=== PATIENT | male | born 1955 | race Caucasian/White ===

== ENCOUNTER → 2016-09-21 | Outpatient (CLI) | payer BC ==
--- NOTE | 2016-09-22 07:36 | XR ---
EXAMINATION TYPE: XR chest 2V DATE OF EXAM: 09/21/2016 1:46 PM COMPARISON: NONE HISTORY: Shortness of breath TECHNIQUE: Frontal and lateral views of the chest are obtained. FINDINGS: Scattered senescent parenchymal changes noted. Hyperinflation compatible with COPD. No evidence for infiltrate. No evidence for atelectasis. Heart size is stable. Mediastinal structures are stable and grossly unremarkable. No evidence for hilar prominence. Degenerative changes dorsal spine. IMPRESSION: 1. No evidence for acute pulmonary disease.
== END | disposition home or self-care (01) ==
LOC: RADXRYALE 13:15
PROVIDERS: ATTEND Family Medicine
DX: J18.9 Pneumonia, unspecified organism (principal)
CPT/HCPCS: 71020

== ENCOUNTER 2017-11-07 05:53 | Day surgery (SDC) | payer BC ==
[2017-11-02 13:44] VITALS: BMI 29.6
[2017-11-07] MEDS ORDERED: SODIUM CHLORIDE 0.9% 1,000 ML IV SCH (05:56)
[2017-11-07] MEDS ORDERED: LACTATED RINGERS 1,000 ML IV SCH (05:56)
[2017-11-07 06:23] VITALS: TEMP 98.2
[2017-11-07 06:34] LABS: Glucose,Whole Blood 134 mg/dL (75-99)
[2017-11-07 06:43] LABS: INR 3.1 (<1.2); Prothrombin Time 28.1 sec (9.0-12.0)
[2017-11-07] MEDS ORDERED: PROPOFOL 10 MG/ML 20 ML VIAL IV ONE (07:10)
[2017-11-07 07:21] LABS: Potassium 4.2 mmol/L (3.5-5.1)
--- NOTE | 2017-11-07 07:58 | P.PCN ---
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 First 360 J shock failed, second 360 J shock was successful Plan Continue flecainide 100 mg twice daily, continue carvedilol continue anticoagulation continue all other medications without changes Follow-up Holter monitor in 2 weeks Follow-up with Dr. weir in 3 weeks Reassessment of symptoms of tiredness fatigue and lack of energy as well as patient remains in sinus rhythm Reassessment of LV function in 6 weeks In case of failure of flecainide consider ablation for symptomatic atrial fibrillation
[2017-11-07 08:26] VITALS: BP 123/82
[2017-11-07 08:49] VITALS: PULSE 77; RESP 18
== END 2017-11-07 09:30 | disposition home or self-care (01) ==
LOC: CATHEP 05:53
PROVIDERS: ATTEND Internal Medicine Clinical Cardiac Electrophysiology
DX: I48.1 Persistent atrial fibrillation (principal); Z79.01 Long term (current) use of anticoagulants; I42.9 Cardiomyopathy, unspecified; F17.210 Nicotine dependence, cigarettes, uncomplicated; E78.2 Mixed hyperlipidemia; E11.9 Type 2 diabetes mellitus without complications; Z79.84 Long term (current) use of oral hypoglycemic drugs; Z82.49 Family history of ischemic heart disease and other diseases of the circulatory system; Z79.899 Other long term (current) drug therapy
CPT/HCPCS: 92960; 80051; 80061; 84443; 85610; J2704; 93005

== ENCOUNTER 2018-11-02 13:16 | Observation (INO) | payer BC, OTHER ==
[2018-11-02] MEDS ORDERED: NITROGLYCERIN OINT 1 INCH/GM PACKET TOPICAL STA (14:24)
[2018-11-02] MEDS ORDERED: ASPIRIN 81 MG PO STA (14:24)
[2018-11-02 14:36] LABS: Basophils % (A) 1 %; Eosinophils # (A) 0.3 k/uL (0-0.7); Eosinophils % (A) 5 %; HCT 43.3 % (39.0-53.0); HGB 15.3 gm/dL (13.0-17.5); Lymphocytes # (A) 1.8 k/uL (1.0-4.8); Lymphocytes % (A) 27 %; MCH 32.5 pg (25.0-35.0); MCHC 35.4 g/dL (31.0-37.0); Mean Platelet Volume 7.2; Monocytes # (A) 0.6 k/uL (0-1.0); Monocytes % (A) 9 %; Neutrophils # (A) 3.7 k/uL (1.3-7.7); Neutrophils % (A) 56 %; Platelet Count 146 k/uL (150-450); RBC 4.71 m/uL (4.30-5.90); RDW 13.7 % (11.5-15.5); WBC 6.7 k/uL (3.8-10.6)
[2018-11-02 14:42] LABS: ALT 50 U/L (21-72); AST 39 U/L (17-59); Albumin 4.1 g/dL (3.5-5.0); Alkaline Phosphatase 57 U/L (38-126); Anion Gap 9 mmol/L; Blood Urea Nitrogen 11 mg/dL (9-20); Carbon Dioxide 24 mmol/L (22-30); Chloride 103 mmol/L (98-107); Glucose 133 mg/dL (74-99); Magnesium 1.7 mg/dL (1.6-2.3); Potassium 4.6 mmol/L (3.5-5.1); Sodium 136 mmol/L (137-145); Total Bilirubin 0.7 mg/dL (0.2-1.3)
[2018-11-02 14:49] LABS: INR 3.1 (<1.2); Partial Thromboplastin Time 37.7 sec (22.0-30.0); Prothrombin Time 29.7 sec (9.0-12.0)
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
[2018-11-02 14:55] LABS: Creatine Kinase 78 U/L (55-170)
[2018-11-02 15:08] LABS: Creatine Kinase MB 1.1 ng/mL (0.0-2.4); Troponin I <0.012 ng/mL (0.000-0.034)
--- NOTE | 2018-11-02 15:39 | XR ---
EXAMINATION TYPE: XR chest 2V DATE OF EXAM: 11/02/2018 COMPARISON: 09/21/2016 HISTORY: Congestive heart failure, chest pain, shortness of breath, enlarged from the swelling TECHNIQUE: Frontal and lateral views of the chest are obtained. FINDINGS: There is no focal air space opacity, pleural effusion, or pneumothorax seen. Pulmonary hy perinflation again relates underlying COPD as there is flattening the diaphragms on the lateral views . Minimal biapical scarring is also noted. The cardiac silhouette size is within normal limits. The osseous structures are intact. IMPRESSION: No acute cardiopulmonary process.
[2018-11-02] MEDS ORDERED: NITROGLYCERIN SL TABS 0.4 MG TAB SUBLINGUAL PRN (16:24)
[2018-11-02 17:26] VITALS: BMI 30.2
[2018-11-02] MEDS ORDERED: IPRATROPIUM-ALBUTEROL 3 ML NEB INHALATION PRN (17:41)
[2018-11-02] MEDS ORDERED: ALBUTEROL INHALER 60 PUFF/8 GM INHALER INHALATION PRN (17:41)
[2018-11-02] MEDS: NITROGLYCERIN OINT 1 INCH/GM PACKET TOPICAL SCH ×2 (18:25→23:52)
[2018-11-02] MEDS: CARVEDILOL 12.5 MG TAB PO SCH (18:25)
--- NOTE | 2018-11-02 19:04 | ECHOF ---
Referral Reason:Chest pain MEASUREMENTS -------- HEIGHT: 195.6 cm WEIGHT: 115.7 kg BP: 163/93 RVIDd: 3.6 cm (< 3.3) IVSd: 1.4 cm (0.6 - 1.1) LVIDd: 5.6 cm (3.9 - 5.3) LVPWd: 1.4 cm (0.6 - 1.1) IVSs: 1.7 cm LVIDs: 4.4 cm LVPWs: 1.6 cm LAESV Index (A-L): 30.08 ml/m Ao Diam: 3.2 cm (2.0 - 3.7) AV Cusp: 1.4 cm (1.5 - 2.6) LA Diam: 3.6 cm (2.7 - 3.8) EPSS: 1.6 cm MV E Hiram: 0.61 m/s MV DecT: 250 ms MV A Hiram: 0.36 m/s MV E/A Ratio: 1.69 RAP: 5.00 mmHg RVSP: 10.97 mmHg MV EF SLOPE: 119.93 mm/s (70 - 150) MV EXCURSION: 1.92 cm (> 18.000) FINDINGS -------- Atrial fibrillation. This was a technically adequate study. The left ventricular size is normal. There is moderate concentric left ventricular hypertrophy. O verall left ventricular systolic function is mildly impaired with, an EF between 45 - 50 %. The right ventricle is moderately enlarged. LA is midly dilated 29-33ml/m2. RA appears enlarged. There is mild aortic valve sclerosis. There is no evidence of aortic regurgitation. There is no e vidence of aortic stenosis. The mitral valve leaflets are mildly thickened. There is trace to mild mitral regurgitation. Trace tricuspid regurgitation present. Right ventricular systolic pressure is normal at < 35 mmHg. There is no evidence of pulmonary hypertension. The pulmonic valve was not well visualized. The aortic root size is normal. IVC Not well visulized. There is no pericardial effusion. CONCLUSIONS -------- 1. Atrial fibrillation. 2. This was a technically adequate study. 3. The left ventricular size is normal. 4. There is moderate concentric left ventricular hypertrophy. 5. The right ventricle is moderately enlarged. 6. LA is midly dilated 29-33ml/m2. 7. RA appears enlarged. 8. There is mild aortic valve sclerosis. 9. The mitral valve leaflets are mildly thickened. 10. There is trace to mild mitral regurgitation. 11. Trace tricuspid regurgitation present. 12. Right ventricular systolic pressure is normal at < 35 mmHg. 13. There is no evidence of pulmonary hypertension. 14. The pulmonic valve was not well visualized. 15. The aortic root size is normal. 16. IVC Not well visulized. 17. There is no pericardial effusion. CIRCULAR [employer]ER [employer]ONE: Bacilio Carranza RDCS
[2018-11-02 20:03] LABS: Glucose,Whole Blood 223 mg/dL (75-99)
[2018-11-02] MEDS: INSULIN ASPART (NovoLOG) 100 UNIT/ML VIAL SQ SCH (20:29)
[2018-11-02] MEDS: HEPARIN SODIUM,PORCINE 5,000 UNIT/ML 1 ML VIAL SQ SCH (20:29)
[2018-11-02 20:58] LABS: Creatine Kinase 69 U/L (55-170)
[2018-11-02 21:11] LABS: Creatine Kinase MB 0.8 ng/mL (0.0-2.4)
[2018-11-02] MEDS ORDERED: ALPRAZolam 0.25 MG TAB PO PRN (21:14)
[2018-11-02] MEDS ORDERED: HYDROcodone/APAP 5-325MG 1 EACH TAB PO PRN (21:14)
[2018-11-02] MEDS ORDERED: TEMAZEPAM 15 MG CAP PO PRN (21:14)
[2018-11-02] MEDS ORDERED: ACETAMINOPHEN TAB 500 MG TAB PO PRN (21:14)
[2018-11-02 21:34] LABS: Troponin I <0.012 ng/mL (0.000-0.034)
--- NOTE | 2018-11-02 21:54 | HP ---
HISTORY AND PHYSICAL DATE OF SERVICE: 11/02/2018 CHIEF COMPLAINT: Chest pain, shortness of breath, leg edema. HISTORY OF PRESENT ILLNESS: This 62-year-old gentleman with a past medical history of multiple medical problems, including COPD, history of diabetes mellitus, history of liver disease, history of closed head injury, being followed by Dr. Parker and Dr. Guzman in the outpatient setting, was complaining of intermittent chest pains on the left side for the past several days. The pain increased, most of it dull and sharp in character, and the patient came to [facility] and was admitted for evaluation and treatment. Patient smokes about a pack of cigarettes per day. The patient also complains of incessant cough at this time. Patient is using albuterol inhaler at home. There is no history of any fever, rigor or chills. No history of headache, loss of consciousness, seizures. PAST MEDICAL HISTORY: 1. History of COPD. 2. Diabetes mellitus. 3. History of liver disease. 4. History of closed head injury. MEDICATIONS: Medications prior to admission include: 1. DuoNeb q.i.d. p.r.n. 2. Ventolin HFA 1 puff q.6 p.r.n. 3. Glucophage 1000 mg b.i.d. 4. Coumadin 6 mg at bedtime. 5. Coreg 12.5 mg b.i.d. ALLERGIES: NONE. FAMILY HISTORY: History of cancers, heart disease in brother, who at the age of 46. SOCIAL HISTORY: Continued smoking. No history of alcohol intake. REVIEW OF SYSTEMS: ENT: No diminished hearing. No diminished vision. CARDIOVASCULAR SYSTEM: As mentioned earlier. RESPIRATORY SYSTEM: As mentioned earlier. GI: No nausea, vomiting. : No dysuria or retention. NERVOUS SYSTEM: No numbness, weakness. ALLERGY/IMMUNOLOGY: No asthma, hayfever. MUSCULOSKELETAL: As mentioned earlier. HEMATOLOGY/ONCOLOGY: No history of anemia. ENDOCRINE: No history of diabetes, hypothyroidism. CONSTITUTIONAL: As mentioned earlier. DERMATOLOGY: Negative. RHEUMATOLOGY: Negative. PSYCHIATRY: As mentioned earlier. PHYSICAL EXAMINATION: Alert and oriented x3. Pulse is 64, blood pressure 148/81, respiration 18, temperature 97.5, pulse ox 98% on 2 L. HEENT: Conjunctivae normal. Oral mucosa moist. NECK: No jugular venous distention. No carotid bruit. No lymph node enlargement. CARDIOVASCULAR SYSTEM: S1, S2 muffled. No S3. No S4. Occasional irregularity noted. RESPIRATORY SYSTEM: Breath sounds diminished at the bases. Bilateral scattered rhonchi and crackles. Expiratory wheezing also present. ABDOMEN: Soft, non-tender. No mass palpable. LEGS: No edema. No swelling. NERVOUS SYSTEM: Higher functions as mentioned earlier. Moves all 4 limbs. No focal motor or sensory deficit. LYMPHATICS: No lymph node palpable in neck, axillae or groin. SKIN: No ulcer, rash, bleeding. LABS: EKG shows atrial fibrillation. Two-D echo showed minimally impaired ejection fraction. WBC 6.7, hemoglobin 15.3, INR 3.1. Sodium is 136. ASSESSMENT: 1. Chest pain, possible unstable angina. 2. Possible chronic obstructive pulmonary disease, acute exacerbation, with acute purulent tracheobronchitis. 3. Possible congestive heart failure with chronic systolic dysfunction, ejection fraction 40% to 45%. 4. Chronic permanent atrial fibrillation. 5. Hyponatremia. 6. Thrombocytopenia. 7. History of diabetes mellitus, type 2. 8. History of liver disease. 9. History of closed head injury. 10.History of colon polyps. 11.Hernia repair. 12.Continued ongoing nicotine dependence. RECOMMENDATIONS AND DISCUSSION: In this 62-year-old gentleman who presented with multiple complex medical issues, we will monitor the patient closely, continue the current medications, continue symptomatic treatment, continue with the bronchodilators. Continue with the home medications. I would also recommend monitoring PT and INR closely. Cardiology consultation. Two-D echo has been noted. Prognosis guarded because of multiple complex medical issues. Further recommendations to follow. A copy of this dictation is being forwarded to Dr. Parker, who is the primary physician. MMODL / IJN: [id number] /
[2018-11-02] MEDS: NICOTINE 14MG/24HR PATCH TRANSDERM SCH (22:13)
[2018-11-03 00:41] VITALS: RESP 18
[2018-11-03] MEDS: NITROGLYCERIN OINT 1 INCH/GM PACKET TOPICAL SCH ×2 (01:04→12:02)
[2018-11-03 02:40] LABS: Creatine Kinase 66 U/L (55-170)
[2018-11-03 02:53] LABS: Troponin I <0.012 ng/mL (0.000-0.034)
[2018-11-03 03:05] LABS: Creatine Kinase MB 0.8 ng/mL (0.0-2.4)
[2018-11-03 05:14] LABS: Appearance,Urine Clear (Clear); Bilirubin,Urine Negative (Negative); Blood,Urine Negative (Negative); Color,Urine Yellow; Glucose,Urine (UA) Negative (Negative); Ketones,Urine Negative (Negative); Leukocyte Esterase,Urine Negative (Negative); Nitrite,Urine Negative (Negative); Protein,Urine Negative (Negative); Specific Gravity,Urine 1.019 (1.001-1.035); Urobilinogen,Urine <2.0 mg/dL (<2.0)
[2018-11-03] MEDS: IPRATROPIUM-ALBUTEROL 3 ML NEB INHALATION SCH ×2 (06:10→11:25)
[2018-11-03 07:05] LABS: Glucose,Whole Blood 117 mg/dL (75-99)
[2018-11-03 07:23] LABS: Basophils % (A) 1 %; Eosinophils # (A) 0.3 k/uL (0-0.7); Eosinophils % (A) 4 %; HCT 46.4 % (39.0-53.0); HGB 15.2 gm/dL (13.0-17.5); Lymphocytes # (A) 1.6 k/uL (1.0-4.8); Lymphocytes % (A) 26 %; MCH 31.4 pg (25.0-35.0); MCHC 32.7 g/dL (31.0-37.0); MCV 96.1 fL (80.0-100.0); Mean Platelet Volume 6.4; Monocytes # (A) 0.5 k/uL (0-1.0); Monocytes % (A) 8 %; Neutrophils # (A) 3.4 k/uL (1.3-7.7); Neutrophils % (A) 57 %; Platelet Count 139 k/uL (150-450); RBC 4.83 m/uL (4.30-5.90); RDW 13.9 % (11.5-15.5); WBC 5.9 k/uL (3.8-10.6)
[2018-11-03] MEDS ORDERED: PANTOPRAZOLE 40 MG TABLET PO SCH (07:30)
[2018-11-03 07:39] LABS: INR 2.7 (<1.2); Prothrombin Time 26.2 sec (9.0-12.0)
[2018-11-03 07:40] LABS: Anion Gap 6 mmol/L; Blood Urea Nitrogen 13 mg/dL (9-20); Calcium 8.5 mg/dL (8.4-10.2); Carbon Dioxide 25 mmol/L (22-30); Chloride 105 mmol/L (98-107); Cholesterol 179 mg/dL (<200); Glucose 120 mg/dL (74-99); HDL Cholesterol 31 mg/dL (40-60); LDL Cholesterol,Calculated 79 mg/dL (0-99); Potassium 4.8 mmol/L (3.5-5.1); Sodium 136 mmol/L (137-145); Triglycerides 345 mg/dL (<150)
[2018-11-03] MEDS ORDERED: BUDESONIDE 1 MG/2 ML NEBU INHALATION SCH (08:00)
[2018-11-03] MEDS ORDERED: FORMOTEROL FUMARATE 20 MCG/2 ML NEBU INHALATION SCH (08:00)
[2018-11-03] MEDS ORDERED: ASPIRIN 325 MG TAB PO SCH (09:00)
[2018-11-03] MEDS ORDERED: metFORMIN 500 MG TAB PO SCH (09:00)
[2018-11-03] MEDS: INSULIN ASPART (NovoLOG) 100 UNIT/ML VIAL SQ SCH ×2 (10:32→12:02)
[2018-11-03] MEDS: CARVEDILOL 12.5 MG TAB PO SCH (10:54)
[2018-11-03] MEDS: NICOTINE 14MG/24HR PATCH TRANSDERM SCH (10:54)
[2018-11-03] MEDS: HEPARIN SODIUM,PORCINE 5,000 UNIT/ML 1 ML VIAL SQ SCH (10:55)
--- NOTE | 2018-11-03 11:16 | CONS ---
CONSULTATION Mr. Rubio is a 62-year-old gentleman who is seen for cardiac evaluation. This patient has a known history of diabetes, history of liver disease and COPD and history of closed head injury. The patient is regularly followed by Dr. Parker and Dr. Guzman. The patient has been feeling tired and has been having shortness of breath. He also recently had some swelling in the legs. The patient had some atypical sharp pain on and off lasting for a few minutes. Patient denies any exertional chest discomfort. There is no prior history of myocardial infarction. I am not sure why this patient is on Coumadin. There is no definite history of a stroke. PAST MEDICAL HISTORY: Includes COPD, diabetes, history of liver disease and history of closed head injury. HOME MEDICATIONS: Home medications include Glucophage. Coumadin, Coreg and DuoNeb p.r.n. Family history unremarkable. REVIEW OF THE SYSTEM: Negative. PHYSICAL EXAMINATION: At present reveals a 62-year-old gentleman who does not appear to be in any acute distress. Blood pressure is 140/81 mmHg. HEENT examination is negative. Neck is supple. There is no increase in jugular venous pressure. Both the carotid pulses are felt. There is no bruit. Chest is symmetrical. Heart: The PMI is not felt. First and second heart sounds are normal. No murmurs are heard. Lungs reveal bilateral scattered wheezes. Abdomen is negative. Extremities: There is no evidence of any leg edema. The patient's cardiac enzymes are negative. The patient's echocardiogram reveals ejection fraction of 45 to 50% The laboratory tests shows hemoglobin is 15.2. INR is 2.7. Electrolytes are normal. Cardiac enzymes are negative. Patient's proBNP level is 302. IMPRESSION: This patient's shortness of breath is secondary to underlying chronic obstructive pulmonary disease. The patient's left ventricular systolic function is normal. Her proBNP level is normal and there is no evidence of any significant left ventricular heart failure. I will continue the current medications. The patient should be evaluated with a screening CT scan of the chest as an outpatient and the patient is advised to make an appointment with Dr. Guzman. MMJONOL / CHUYN: [id number] /
[2018-11-03 11:45] LABS: Glucose,Whole Blood 170 mg/dL (75-99)
[2018-11-03 12:22] VITALS: BP 139/94; PULSE 87; TEMP 98.2
--- NOTE | 2018-11-04 08:23 | DS ---
DISCHARGE SUMMARY FINAL DIAGNOSES: 1. Chest pain, myocardial infarction ruled out, possible musculoskeletal. 2. Chronic obstructive pulmonary disease acute exacerbation with acute purulent tracheobronchitis. 3. Possible congestive heart failure acute exacerbation with chronic systolic dysfunction ejection fraction 40-45 percent. 4. Chronic permanent atrial fibrillation. 5. Hyponatremia. 6. Thrombocytopenia. 7. Diabetes mellitus type 2. 8. History of liver disease. 9. Closed head injury. 10.History of colonic polyps. 11.Hernia repair. 12.Ongoing nicotine dependence. DISCHARGE DISPOSITION: The patient will be discharged in stable condition with guarded prognosis. HISTORY OF PRESENT ILLNESS: This 62-year-old gentleman with a past medical history of multiple medical problems was admitted with chest pain and COPD. 2D echo showed ejection fraction 45-50 percent. Cardiology saw the patient. Cardiology cleared the patient for discharge. The patient will be discharged in stable condition with guarded prognosis. Further plan to follow up in the outpatient setting. Myocardial infarction ruled out. On exam, vital signs are stable. Cardiovascular S1, S2. Abdomen soft. Nervous system: No focal deficits. DISCHARGE ADVICE AND MEDICATIONS: 1. Diet is cardiac. 2. Activity limited until follow up. 3. Follow up with Dr. Parker in 2-3 days. 4. Follow up with Cardiology as recommended. MEDICATIONS: 1. Albuterol 1-2 puffs q.6h p.r.n. 2. Coreg 12.5 mg p.o. b.i.d. 3. Glucophage 1000 mg b.i.d. 4. Coumadin 6 mg q.h.s. 5. Symbicort 160/4.5, 1 puff b.i.d. 6. Ceftin 500 mg p.o. b.i.d. 7. DuoNeb q.i.d. 8. Prednisone taper 40 mg daily for 3 days, 30 for 3 days, 20 for 3 days and 10 for 3 days. Once again, the patient will be discharged in stable condition with guarded prognosis. MMODL / IJN: [id number] /
== END 2018-11-03 14:27 | disposition home or self-care (01) ==
LOC: EC 13:16 → 1SOBS 16:57
PROVIDERS: ADMIT Internal Medicine; ATTEND Internal Medicine
DX: R07.9 Chest pain, unspecified (principal); J44.0 Chronic obstructive pulmonary disease with (acute) lower respiratory infection; J44.1 Chronic obstructive pulmonary disease with (acute) exacerbation; J20.9 Acute bronchitis, unspecified; I48.2 Chronic atrial fibrillation; E87.1 Hypo-osmolality and hyponatremia; D69.6 Thrombocytopenia, unspecified; E11.9 Type 2 diabetes mellitus without complications; Z86.010 Personal history of colon polyps; K76.9 Liver disease, unspecified; F17.210 Nicotine dependence, cigarettes, uncomplicated; Z87.828 Personal history of other (healed) physical injury and trauma; Z79.899 Other long term (current) drug therapy; Z79.01 Long term (current) use of anticoagulants; Z79.84 Long term (current) use of oral hypoglycemic drugs; Z82.49 Family history of ischemic heart disease and other diseases of the circulatory system; Z80.9 Family history of malignant neoplasm, unspecified
CPT/HCPCS: 96365; 96372 ×2; 99285; 36415; 94640 ×3; 94760; 93005; 93306; 83880; 80061; 80053; 80048; 82550 ×2; 82553 ×2; 83735; 84484 ×2; 85025 ×2; 85610 ×2; 85730; 81003; 87502; 83036; 71046; G0378 ×2; S4990 ×2; J1644 ×2; J0696

== ENCOUNTER 2022-02-17 10:43 | Emergency (ER) | payer MEDICARE ==
[2022-02-17 10:51] VITALS: TEMP 97.8
[2022-02-17 10:57] LABS: Glucose,Whole Blood 369 mg/dL (75-99)
[2022-02-17] MEDS ORDERED: SODIUM CHLORIDE 0.9% 1,000 ML IV STA (11:09)
[2022-02-17 11:31] LABS: Appearance,Urine Clear (Clear); Basophils % (A) 1 %; Bilirubin,Urine Negative (Negative); Blood,Urine Negative (Negative); Color,Urine Light Yellow; Eosinophils # (A) 0.3 k/uL (0-0.7); Eosinophils % (A) 5 %; Glucose,Urine (UA) 4+ (Negative); HCT 42.6 % (39.0-53.0); HGB 13.9 gm/dL (13.0-17.5); Ketones,Urine Negative (Negative); Leukocyte Esterase,Urine Negative (Negative); Lymphocytes # (A) 1.8 k/uL (1.0-4.8); Lymphocytes % (A) 26 %; MCH 31.5 pg (25.0-35.0); MCHC 32.5 g/dL (31.0-37.0); MCV 96.8 fL (80.0-100.0); Mean Platelet Volume 7.7; Monocytes # (A) 0.6 k/uL (0-1.0); Monocytes % (A) 8 %; Neutrophils # (A) 3.9 k/uL (1.3-7.7); Neutrophils % (A) 57 %; Nitrite,Urine Negative (Negative); Platelet Count 194 k/uL (150-450); Protein,Urine Negative (Negative); RDW 13.4 % (11.5-15.5); Urobilinogen,Urine <2.0 mg/dL (<2.0); WBC 6.9 k/uL (3.8-10.6)
[2022-02-17 11:45] LABS: African American GFR (CKD) >90 (>60 ml/min/1.73 sqM); Anion Gap 8 mmol/L; Blood Urea Nitrogen 14 mg/dL (9-20); Carbon Dioxide 29 mmol/L (22-30); Chloride 99 mmol/L (98-107); Glucose 346 mg/dL (74-99); Magnesium 2.2 mg/dL (1.6-2.3); Non-African American GFR(CKD) >90 (>60 ml/min/1.73 sqM); Sodium 136 mmol/L (137-145)
[2022-02-17 12:21] LABS: Glucose,Whole Blood 276 mg/dL (75-99)
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
[2022-02-17 12:59] VITALS: BP 138/97; PULSE 68; RESP 14
== END 2022-02-17 12:58 | disposition home or self-care (01) ==
LOC: EC 10:43
DX: R73.9 Hyperglycemia, unspecified (principal); J44.9 Chronic obstructive pulmonary disease, unspecified; F17.200 Nicotine dependence, unspecified, uncomplicated
CPT/HCPCS: 36415; 80048; 81003; 82009; 83735; 85025; 96360; 99283

== ENCOUNTER 2022-03-25 14:34 | Emergency (ER) | payer MEDICARE ==
[2022-03-25] MEDS ORDERED: IPRATROPIUM-ALBUTEROL 3 ML NEB INHALATION STA (15:38)
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
[2022-03-25 16:24] LABS: Basophils # (A) 0.2 k/uL (0-0.2); Basophils % (A) 2 %; Eosinophils # (A) 0.3 k/uL (0-0.7); Eosinophils % (A) 3 %; HCT 45.7 % (39.0-53.0); Lymphocytes # (A) 2.2 k/uL (1.0-4.8); Lymphocytes % (A) 23 %; MCH 31.6 pg (25.0-35.0); MCHC 32.8 g/dL (31.0-37.0); MCV 96.3 fL (80.0-100.0); Mean Platelet Volume 7.7; Monocytes # (A) 0.7 k/uL (0-1.0); Monocytes % (A) 7 %; Neutrophils # (A) 5.8 k/uL (1.3-7.7); Neutrophils % (A) 62 %; Platelet Count 186 k/uL (150-450); RBC 4.75 m/uL (4.30-5.90); RDW 13.3 % (11.5-15.5); WBC 9.4 k/uL (3.8-10.6)
[2022-03-25 16:33] LABS: ALT 27 U/L (4-49); AST 31 U/L (17-59); African American GFR (CKD) >90 (>60 ml/min/1.73 sqM); Albumin 4.3 g/dL (3.5-5.0); Alkaline Phosphatase 101 U/L (38-126); Anion Gap 8 mmol/L; Blood Urea Nitrogen 22 mg/dL (9-20); Carbon Dioxide 28 mmol/L (22-30); Chloride 99 mmol/L (98-107); Glucose 186 mg/dL (74-99); Magnesium 1.8 mg/dL (1.6-2.3); Non-African American GFR(CKD) >90 (>60 ml/min/1.73 sqM); Potassium 4.8 mmol/L (3.5-5.1); Sodium 135 mmol/L (137-145); Total Bilirubin 0.3 mg/dL (0.2-1.3); Total Protein 7.7 g/dL (6.3-8.2)
[2022-03-25 16:37] LABS: INR 1.6 (<1.2); Partial Thromboplastin Time 26.4 sec (22.0-30.0); Prothrombin Time 16.1 sec (9.0-12.0)
--- NOTE | 2022-03-25 16:52 | US ---
EXAMINATION TYPE: US venous doppler duplex LE LT DATE OF EXAM: 03/25/2022 4:43 PM COMPARISON: NONE CLINICAL HISTORY: pain and swelling. pain SIDE PERFORMED: Left TECHNIQUE: The lower extremity deep venous system is examined utilizing real time linear array sonog charan with graded compression, doppler sonography and color-flow sonography. VESSELS IMAGED: Common Femoral Vein Deep Femoral Vein Greater Saphenous Vein * Femoral Vein Popliteal Vein Small Saphenous Vein * Proximal Calf Veins (* superficial vessels) Left Leg: Negative for DVT IMPRESSION: Normal exam. No evidence of deep vein thrombosis in the left leg.
--- NOTE | 2022-03-25 17:50 | CT ---
EXAMINATION TYPE: CT angio chest DATE OF EXAM: 03/25/2022 COMPARISON: None HISTORY: R/O PE CT DLP: 730.1 mGycm Automated exposure control for dose reduction was used. CONTRAST: Performed with IV Contrast, patient injected with 100 mL of Isovue 370. There are Three-D postprocessed images. There is some mild pulmonary emphysema. The lungs are clear of infiltrate. No pleural effusion. No pn eumothorax. Heart size is normal. No pericardial effusion. There is no mediastinal adenopathy. There are no hilar masses. There is mild atheromatous change in t he thoracic aorta. No aneurysm or dissection. There is normal contrast opacification of the pulmonary arteries. No filling defect. The thoracic spine is intact. No compression fracture. Sternum is intact. Upper abdominal soft tissue s are intact. IMPRESSION: No evidence of pulmonary embolism. Mild COPD.
[2022-03-25] MEDS ORDERED: BEBTELOVIMAB (EUA) 175 MG/2 ML VIAL IV ONE (18:15)
[2022-03-25 20:52] VITALS: BP 105/83; PULSE 86; RESP 18; TEMP 97.9
== END 2022-03-25 19:52 | disposition home or self-care (01) ==
LOC: EC 14:34
DX: U07.1 COVID-19 (principal); J44.9 Chronic obstructive pulmonary disease, unspecified; E11.9 Type 2 diabetes mellitus without complications; F17.200 Nicotine dependence, unspecified, uncomplicated; Z79.84 Long term (current) use of oral hypoglycemic drugs; Z79.01 Long term (current) use of anticoagulants; Z79.51 Long term (current) use of inhaled steroids; Z79.899 Other long term (current) drug therapy
CPT/HCPCS: 36415; 94640; 80053; 83605; 83735; 84484; 85025; 85610; 85730; 93971; 71275; 99285; Q9967; Q0222

== ENCOUNTER → 2022-05-03 | Outpatient (CLI) | payer MEDICARE ==
--- NOTE | 2022-05-03 14:19 | XR ---
EXAMINATION TYPE: XR foot complete LT DATE OF EXAM: 05/03/2022 CLINICAL HISTORY: nonhealing quarter sized wound plantar surface TECHNIQUE: Frontal, lateral and oblique images of the left foot are obtained. COMPARISON: None. FINDINGS: There is no acute fracture/dislocation evident. The joint spaces appear within normal ingram its. Soft tissue wound noted on the plantar aspect of the left foot. No evidence for osteomyelitis. V ascular calcifications noted. IMPRESSION: There is no acute fracture or dislocation. ICD 10 NO FRACTURE, INITIAL EVALUATION
== END | disposition home or self-care (01) ==
LOC: LABWHC1 13:28
PROVIDERS: ATTEND Podiatrist
DX: L97.522 Non-pressure chronic ulcer of other part of left foot with fat layer exposed (principal)
CPT/HCPCS: 36415; 84134

== ENCOUNTER 2022-08-29 10:27 | Day surgery (SDC) | payer MEDICARE ==
[~2022-08-29 10:27] MED LIST: ALPRAZolam 0.25 MG TAB PO PRN; ALPRAZolam 0.5 MG TAB PO PRN; ASPIRIN 325 MG TAB PO ONE; ATORVASTATIN 80 MG TAB PO ONE; HEPARIN SODIUM,PORCINE 10,000 UNIT in SODIUM CHLORIDE 0.9% 1,000 ML IRRIGATION PRN; HEPARIN SODIUM,PORCINE 2,500 UNIT in SODIUM CHLORIDE 0.9% 250 ML IRRIGATION PRN; NITROGLYCERIN SL TABS 0.4 MG TAB SUBLINGUAL PRN; SODIUM CHLORIDE 0.9% 1,000 ML in EMPTY BAG 1 BAG IV SCH
[2022-08-29] MEDS ORDERED: SODIUM CHLORIDE 0.9% 1,000 ML IV ONE (11:09)
[2022-08-29] MEDS ORDERED: INSULIN ASPART (NovoLOG) 100 UNIT/ML VIAL SQ ONE (11:25)
[2022-08-29 11:28] LABS: Glucose,Whole Blood 218 mg/dL (70-110)
[2022-08-29 11:33] LABS: Basophils % (A) 1 %; Eosinophils # (A) 0.3 k/uL (0-0.7); Eosinophils % (A) 5 %; HCT 44.5 % (39.0-53.0); Lymphocytes # (A) 1.5 k/uL (1.0-4.8); Lymphocytes % (A) 23 %; MCH 31.6 pg (25.0-35.0); MCHC 33.6 g/dL (31.0-37.0); MCV 94.1 fL (80.0-100.0); Mean Platelet Volume 8.2; Monocytes # (A) 0.5 k/uL (0-1.0); Monocytes % (A) 8 %; Neutrophils # (A) 3.9 k/uL (1.3-7.7); Neutrophils % (A) 61 %; Platelet Count 158 k/uL (150-450); RBC 4.73 m/uL (4.30-5.90); RDW 13.7 % (11.5-15.5); WBC 6.4 k/uL (3.8-10.6)
[2022-08-29 11:41] VITALS: RESP 16; TEMP 98
[2022-08-29 11:48] LABS: African American GFR (CKD) >90 (>60 ml/min/1.73 sqM); Anion Gap 7 mmol/L; Blood Urea Nitrogen 20 mg/dL (9-20); Calcium 8.3 mg/dL (8.4-10.2); Carbon Dioxide 28 mmol/L (22-30); Chloride 102 mmol/L (98-107); Glucose 223 mg/dL (74-99); Non-African American GFR(CKD) >90 (>60 ml/min/1.73 sqM); Potassium 4.6 mmol/L (3.5-5.1); Sodium 137 mmol/L (137-145)
[2022-08-29 11:49] LABS: INR 1.1 (<1.2); Prothrombin Time 11.6 sec (9.0-12.0)
[2022-08-29] MEDS ORDERED: VERAPAMIL 2.5 MG/ML 2 ML AMP ONE (12:27)
[2022-08-29] MEDS ORDERED: MIDAZOLAM 2 MG/2 ML VIAL IV ONE (13:00)
[2022-08-29] MEDS ORDERED: LIDOCAINE 1% INJ 10MG/ML (30 ML VIAL-PF) SQ ONE (13:02)
[2022-08-29] MEDS ORDERED: VERAPAMIL SYRINGE (5 MG/10 ML) INTRAARTER ONE (13:02)
[2022-08-29] MEDS ORDERED: FLUMAZENIL 0.1 MG/ML 5 ML VIAL IVP ONE ×2 (13:04→13:05)
[2022-08-29] MEDS ORDERED: fentaNYL (PF) 50 MCG/ML 2 ML AMP ONE (13:06)
[2022-08-29] MEDS: fentaNYL (PF) 50 MCG/ML 2 ML AMP IV ONE ×2 (13:06→13:10)
[2022-08-29] MEDS ORDERED: HEPARIN SODIUM 1,000 UN/ML (10ML VL) IV ONE (13:17)
[2022-08-29] MEDS ORDERED: IOPAMIDOL-370 125ML BTL INJ ONE (13:21)
[2022-08-29] MEDS ORDERED: RX INFO: IV CONTRAST WAS GIVEN 1 EACH MISC MISCELLANE PRN (13:25)
--- NOTE | 2022-08-29 13:29 | P.PCN ---
Date of Procedure: 08/29/22 Operative Findings: CARDIAC CATHETERIZATION PERFORMING PHYSICIAN: Td Montalvo MD, RPVI PROCEDURE PERFORMED: 1. Selective right and left coronary angiogram INDICATION: Shortness of breath and a chest discomfort concerning for severe CAD in this gentleman who has multiple risk factors for CAD COMPLICATION: None APPROACH: Right radial artery LEVEL OF SEDATION: Moderate with a sedation length of 19 minutes PROCEDURE DESCRIPTION: After obtaining an informed consent, the patient was brought to cardiac assistant laboratory director. Local anesthesia was performed using lidocaine subcutaneously. The right radial artery was cannulated using Seldinger technique, the guidewire passed easily, following that we advanced a 5-Haitian sheath dilator assembly, the wire and dilator were removed and sheath was flushed. Following that, 2 mg of verapamil along with 5000 unit heparin were given. Selective right and left coronary angiogram using a 6-Haitian JR4 and JL 3.5 catheters. The procedure was completed there was no complication. SELECTIVE CORONARY ANGIOGRAM: The right coronary artery: Large caliber vessel and a dominant vessel. The RCA is diffusely diseased up to about 30-40% distally. The RCA is extremely calcified. Left main: Calcified was mild disease only. Bifurcates into LCx and LAD The left circumflex: Large caliber vessel nondominant vessel. The LCx is calcified was mild disease only. It gives rises into large OM branch which appears to have mild disease only. The left anterior descending artery: The LAD is extremely calcified. The LAD proximally has a lesion appeared to be in the range of 60-70%. By the bifurcation of the first and second diagonal branches. After that the LAD has mild diffuse disease. The LAD by the apex has a tight lesion appears to be in the range of 70-80% but the LAD becomes small caliber vessel. CONCLUSION: 1. Calcified right and left coronary system 2. Intermediate to severe lesion involving the proximal LAD POSTPROCEDURE MANAGEMENT: Consider medical treatment at this point. Consider FFR of the LAD if the patient remains symptomatic in spite of maximize medical treat
[2022-08-29] MEDS ORDERED: SODIUM CHLORIDE 0.9% 1,000 ML IV SCH (13:30)
[2022-08-29] MEDS ORDERED: ACETAMINOPHEN TAB 325 MG TAB ONE (14:18)
[2022-08-29 17:39] VITALS: BP 113/69; PULSE 67
== END 2022-08-29 17:39 | disposition home or self-care (01) ==
LOC: CATHCVL 10:27
PROVIDERS: ATTEND Internal Medicine Interventional Cardiology
DX: R06.02 Shortness of breath (principal); E78.5 Hyperlipidemia, unspecified; I48.21 Permanent atrial fibrillation; E11.9 Type 2 diabetes mellitus without complications; I10 Essential (primary) hypertension; Z82.49 Family history of ischemic heart disease and other diseases of the circulatory system; F17.210 Nicotine dependence, cigarettes, uncomplicated; Z79.84 Long term (current) use of oral hypoglycemic drugs; Z79.899 Other long term (current) drug therapy
CPT/HCPCS: 93454; 80048; 85025; 85610; C1769 ×2; C1894; J2250; J2001; J3010; J1644; Q9967

== ENCOUNTER → 2022-10-14 | Day surgery (SDC) | payer MEDICARE ==
[2022-10-12 09:06] VITALS: BMI 30.2
[~2022-10-14] MED LIST changes: -ASPIRIN 325 MG TAB PO ONE; +ASPIRIN 325 MG TAB PO STA; -ATORVASTATIN 80 MG TAB PO ONE; +ATORVASTATIN 80 MG TAB PO STA; +INSULIN ASPART (NovoLOG) 100 UNIT/ML VIAL SQ ONE; +PHYTONADIONE 10 MG in SODIUM CHLORIDE 0.9% 50 ML IVPB STA; +SODIUM CHLORIDE 0.9% 1,000 ML IV ONE
[2022-10-14 10:59] VITALS: BP 161/81; PULSE 89; RESP 16; TEMP 97.7
[2022-10-14 11:04] LABS: Glucose,Whole Blood 234 mg/dL (70-110)
[2022-10-14 11:10] LABS: Basophils % (A) 1 %; Eosinophils # (A) 0.3 k/uL (0-0.7); Eosinophils % (A) 5 %; HCT 43.6 % (39.0-53.0); HGB 14.9 gm/dL (13.0-17.5); Lymphocytes # (A) 1.2 k/uL (1.0-4.8); Lymphocytes % (A) 22 %; MCH 31.2 pg (25.0-35.0); MCHC 34.1 g/dL (31.0-37.0); MCV 91.5 fL (80.0-100.0); Mean Platelet Volume 7.6; Monocytes # (A) 0.6 k/uL (0-1.0); Monocytes % (A) 10 %; Neutrophils # (A) 3.2 k/uL (1.3-7.7); Neutrophils % (A) 59 %; Platelet Count 147 k/uL (150-450); RBC 4.76 m/uL (4.30-5.90); WBC 5.4 k/uL (3.8-10.6)
[2022-10-14 11:22] LABS: INR 3.1 (<1.2)
[2022-10-14 11:35] LABS: African American GFR (CKD) >90 (>60 ml/min/1.73 sqM); Anion Gap 7 mmol/L; Blood Urea Nitrogen 20 mg/dL (9-20); Calcium 8.4 mg/dL (8.4-10.2); Carbon Dioxide 28 mmol/L (22-30); Chloride 102 mmol/L (98-107); Glucose 226 mg/dL (74-99); Non-African American GFR(CKD) >90 (>60 ml/min/1.73 sqM); Potassium 4.5 mmol/L (3.5-5.1); Sodium 137 mmol/L (137-145)
[2022-10-14 13:31] LABS: INR 2.5 (<1.2); Prothrombin Time 24.5 sec (9.0-12.0)
== END ==
LOC: CATHCVL 10:33
PROVIDERS: ATTEND Internal Medicine Interventional Cardiology
DX: I25.10 Atherosclerotic heart disease of native coronary artery without angina pectoris (principal); I10 Essential (primary) hypertension; E78.5 Hyperlipidemia, unspecified; I48.21 Permanent atrial fibrillation; F17.210 Nicotine dependence, cigarettes, uncomplicated; E11.9 Type 2 diabetes mellitus without complications; I35.1 Nonrheumatic aortic (valve) insufficiency; Z82.49 Family history of ischemic heart disease and other diseases of the circulatory system; Z86.31 Personal history of diabetic foot ulcer; Z79.899 Other long term (current) drug therapy
CPT/HCPCS: 80048; 85025; 85610; J3430

== ENCOUNTER 2022-10-17 09:02 | Day surgery (SDC) | payer MEDICARE ==
[~2022-10-17 09:02] MED LIST changes: -ALPRAZolam 0.25 MG TAB PO PRN; -ALPRAZolam 0.5 MG TAB PO PRN; -ASPIRIN 325 MG TAB PO STA; -ATORVASTATIN 80 MG TAB PO STA; -HEPARIN SODIUM,PORCINE 10,000 UNIT in SODIUM CHLORIDE 0.9% 1,000 ML IRRIGATION PRN; -HEPARIN SODIUM,PORCINE 2,500 UNIT in SODIUM CHLORIDE 0.9% 250 ML IRRIGATION PRN; -INSULIN ASPART (NovoLOG) 100 UNIT/ML VIAL SQ ONE; -NITROGLYCERIN SL TABS 0.4 MG TAB SUBLINGUAL PRN; -PHYTONADIONE 10 MG in SODIUM CHLORIDE 0.9% 50 ML IVPB STA; -SODIUM CHLORIDE 0.9% 1,000 ML IV ONE; +SODIUM CHLORIDE 0.9% 1,000 ML in EMPTY BAG 1 BAG IV ONE; -SODIUM CHLORIDE 0.9% 1,000 ML in EMPTY BAG 1 BAG IV SCH
[2022-10-17] MEDS ORDERED: ASPIRIN 325 MG TAB ONE (09:21)
[2022-10-17] MEDS ORDERED: SODIUM CHLORIDE 0.9% 1,000 ML IV ONE (09:37)
[2022-10-17] MEDS ORDERED: INSULIN ASPART (NovoLOG) 100 UNIT/ML VIAL SQ ONE ×3 (09:43→10:00)
[2022-10-17 09:49] LABS: Glucose,Whole Blood 349 mg/dL (70-110)
[2022-10-17 11:47] LABS: Prothrombin Time 10.8 sec (9.0-12.0)
[2022-10-17] MEDS ORDERED: VERAPAMIL 2.5 MG/ML 2 ML AMP ONE (11:56)
[2022-10-17] MEDS ORDERED: LIDOCAINE 1% INJ 10MG/ML (5 ML VIAL-PF) SQ ONE ×2 (12:07→12:12)
[2022-10-17] MEDS ORDERED: HEPARIN SODIUM 1,000 UN/ML (10ML VL) ONE (12:11)
[2022-10-17] MEDS ORDERED: HEPARIN SODIUM 1,000 UN/ML (10ML VL) IV ONE (12:13)
[2022-10-17] MEDS ORDERED: MIDAZOLAM 2 MG/2 ML VIAL IV ONE (12:13)
[2022-10-17] MEDS ORDERED: VERAPAMIL SYRINGE (5 MG/10 ML) INTRAARTER ONE (12:13)
[2022-10-17] MEDS ORDERED: fentaNYL (PF) 50 MCG/ML 2 ML AMP ONE (12:18)
[2022-10-17] MEDS ORDERED: fentaNYL (PF) 50 MCG/1 ML VIAL IV ONE (12:19)
[2022-10-17] MEDS ORDERED: CLOPIDOGREL 75 MG TAB ONE (12:47)
[2022-10-17] MEDS ORDERED: NITROGLYCERIN 1000MCG/10ML SYRINGE INTRACORON ONE (12:47)
[2022-10-17] MEDS ORDERED: CLOPIDOGREL 75 MG TAB PO ONE (12:50)
[2022-10-17] MEDS ORDERED: IOPAMIDOL-370 100ML BTL INJ ONE ×2 (12:53→12:54)
[2022-10-17] MEDS ORDERED: ATROPINE SULFATE 0.1 MG/ML 10ML SYRINGE IV PRN (12:59)
[2022-10-17] MEDS ORDERED: RX INFO: IV CONTRAST WAS GIVEN 1 EACH MISC MISCELLANE PRN (12:59)
[2022-10-17] MEDS ORDERED: ZOLPIDEM 5 MG TAB PO PRN (12:59)
[2022-10-17] MEDS ORDERED: NITROGLYCERIN SL TABS 0.4 MG TAB SUBLINGUAL PRN (12:59)
[2022-10-17] MEDS ORDERED: MAG HYDROX/AL HYDROX/SIMETH 30 ML CUP PO PRN (12:59)
[2022-10-17] MEDS ORDERED: SODIUM CHLORIDE 0.9% 1,000 ML in EMPTY BAG 1 BAG IV SCH (13:00)
--- NOTE | 2022-10-17 13:04 | P.PCN ---
Date of Procedure: 10/17/22 Operative Findings: PERCUTANEOUS CORONARY INTERVENTION Performing physician Td Montalvo M.D. Procedure Performed: 1. Successful stenting of the mid LAD using 3.25 x 18 mm Xience drug-eluting stent with an excellent angiographic results with adjunctive use of iFR and intravascular ultrasound and also lithotripsy balloon 2. Ultrasound-guided access of the right radial artery Indication: This is a 66-year-old gentleman with CAD and known intermediate disease involving the LAD who continues to be symptomatic. He does have also multiple risk factors. He was brought today to undergo an FFR of the LAD. Approach: Right radial artery Complications: None Level of Sedation: Moderate with a sedation length of 50 minutes Procedure Discussion: After obtaining an informed consent the patient was brought to the cardiac veterinary laboratory technician. The right radial artery was cannulated using micropuncture technique under ultrasound guidance, the micropuncture wire passed easily then I placed a 6- Qatari sheath at the right radial artery. I gave the patient 2 mg of verapamil and total of 8000 units of heparin IV. After that I decided to start by doing an FFR of the LAD. After zeroing the Doppler wire and equalizing between the Doppler wire and the guiding catheter which was JL 3.5 guiding catheter with did iFR of the LAD and that came in to be ischemic 0.84. Subsequently I decided to do angioplasty of the LAD. The LAD was extremely calcified. I did initially intravascular ultrasound and that showed a diameter of the LAD about 3.25 mm. I did balloon angioplasty initially using 2.5 x 12 mm balloon before I did alone angioplasty again using 3 mm shockwave balloon. That was inflated twice. Subsequently I deployed 3.25 x 18 mm stent. The stent was positioned under fluoroscopy guidance with adjunctive use of guide liner. After that the stent was deployed under 14 shaniqua for 20 seconds. Postdilatation was performed using 3.5 mm noncompliant balloon. Final angiogram was performed and showed an excellent angiographic results and the procedure was completed was no complication. Postprocedure Management: 1. Dual antiplatelet therapy using aspirin and Plavix for at least 6 months 2. Aggressive cholesterol control 3. Risk factors modification
[2022-10-17 13:26] LABS: Glucose,Whole Blood 293 mg/dL (70-110)
[2022-10-17] MEDS ORDERED: GLIMEPIRIDE 4 MG TAB PO ONE (13:30)
[2022-10-17] MEDS: IPRATROPIUM-ALBUTEROL 3 ML NEB INHALATION SCH ×2 (16:52→20:25)
[2022-10-17 17:16] LABS: Glucose,Whole Blood 301 mg/dL (70-110)
[2022-10-17] MEDS: GLIMEPIRIDE 4 MG TAB PO SCH (17:46)
[2022-10-17] MEDS: carvediloL 12.5 MG TAB PO SCH (17:46)
[2022-10-17] MEDS: INSULIN ASPART (NovoLOG) 100 UNIT/ML VIAL SQ SCH ×2 (17:46→21:11)
[2022-10-17 20:49] LABS: Glucose,Whole Blood 373 mg/dL (70-110)
[2022-10-17] MEDS ORDERED: ATORVASTATIN 20 MG TAB PO SCH (21:00)
[2022-10-17] MEDS: TAMSULOSIN 0.4 MG CAP.ER.24H PO SCH (21:10)
[2022-10-17] MEDS: BUMETANIDE 0.5 MG TABLET PO SCH (21:10)
[2022-10-17] MEDS: traMADol 50 MG TAB PO SCH (21:10)
[2022-10-17] MEDS: GABAPENTIN 300 MG CAP PO SCH (21:10)
[2022-10-18 05:47] LABS: Glucose,Whole Blood 244 mg/dL (70-110)
[2022-10-18 06:00] LABS: African American GFR (CKD) >90 (>60 ml/min/1.73 sqM); Non-African American GFR(CKD) >90 (>60 ml/min/1.73 sqM)
[2022-10-18] MEDS: INSULIN ASPART (NovoLOG) 100 UNIT/ML VIAL SQ SCH (06:18)
[2022-10-18] MEDS: carvediloL 12.5 MG TAB PO SCH (06:18)
[2022-10-18] MEDS: GLIMEPIRIDE 4 MG TAB PO SCH (06:18)
[2022-10-18] MEDS ORDERED: SYMBICORT 80-4.5 MCG INHALER INHALATION SCH (08:00)
[2022-10-18 08:08] VITALS: BP 119/71; RESP 18; TEMP 98.2
[2022-10-18] MEDS: IPRATROPIUM-ALBUTEROL 3 ML NEB INHALATION SCH (08:34)
[2022-10-18 08:38] VITALS: PULSE 76
[2022-10-18] MEDS: TAMSULOSIN 0.4 MG CAP.ER.24H PO SCH (08:38)
--- NOTE | 2022-10-18 08:38 | P.DS ---
Providers Attending physician: Td Montalvo Consults: 10/17/22 12:59 Consult Physician Routine Consulting Provider: [facility] Consult Reason/Comments: Post Interventional patient Do you want consulting provider notified?: Already Contacted Primary care physician: Bebeto Soto MD Hospital Course: The patient is a pleasant 66-year-old patient who underwent yesterday successful stenting of the left anterior descending artery. The patient was seen this morning. The procedure was performed from the right radial approach. The patient is asymptomatic and also his hemodynamic is stable. The right radial site is soft but appears to be tender. No hematoma noted. The patient is going to be discharged on triple therapy and I will follow-up with the patient next week in the office Plan - Discharge Summary New Discharge Prescriptions: No Action Albuterol Inhaler [Ventolin Hfa Inhaler] 1 - 2 puff INHALATION RT-Q6H PRN PRN Reason: Shortness Of Breath Warfarin Sodium [Coumadin] 6 mg PO SUTUTHSA carvediloL [Coreg*] 12.5 mg PO BID Ipratropium-Albuterol Nebulize [Duoneb 0.5 mg-3 mg/3 ml Soln] 3 ml INHALATION RT-QID #120 ampul.neb Gabapentin [Neurontin] 300 mg PO BID Glimepiride [Amaryl] 4 mg PO BID metFORMIN HCL 1,000 mg PO BID traMADol HCL 50 mg PO BID Spironolactone [Aldactone] 25 mg PO DAILY Montelukast [Singulair] 10 mg PO DAILY Atorvastatin [Lipitor] 20 mg PO HS Clopidogrel [Plavix] 75 mg PO DAILY Tamsulosin HCl [Flomax] 0.4 mg PO BID Bumetanide [BUMEX] 0.5 mg PO BID Warfarin [Coumadin] 7.5 mg PO MOWEFR Fluticasone/Umeclidin/Vilanter [Trelegy Ellipta 100-62.5-25] 1 inhalation INHALATION DAILY Discharge Medication List Albuterol Inhaler [Ventolin Hfa Inhaler] 1 - 2 puff INHALATION RT-Q6H PRN 04/07/15 [History] Warfarin Sodium [Coumadin] 6 mg PO SUTUTHSA 04/07/15 [History] carvediloL [Coreg*] 12.5 mg PO BID 11/02/17 [History] Ipratropium-Albuterol Nebulize [Duoneb 0.5 mg-3 mg/3 ml Soln] 3 ml INHALATION RT-QID #120 ampul.neb 11/03/18 [Rx] Atorvastatin [Lipitor] 20 mg PO HS 08/25/22 [History] Bumetanide [BUMEX] 0.5 mg PO BID 08/25/22 [History] Clopidogrel [Plavix] 75 mg PO DAILY 08/25/22 [History] Gabapentin [Neurontin] 300 mg PO BID 08/25/22 [History] Glimepiride [Amaryl] 4 mg PO BID 08/25/22 [History] Montelukast [Singulair] 10 mg PO DAILY 08/25/22 [History] Spironolactone [Aldactone] 25 mg PO DAILY 08/25/22 [History] Tamsulosin HCl [Flomax] 0.4 mg PO BID 08/25/22 [History] traMADol HCL 50 mg PO BID 08/25/22 [History] Fluticasone/Umeclidin/Vilanter [Trelegy Ellipta 100-62.5-25] 1 inhalation INHALATION DAILY 10/12/22 [History] Warfarin [Coumadin] 7.5 mg PO MOWEFR 10/12/22 [History] metFORMIN HCL 1,000 mg PO BID 10/12/22 [History] Follow up Appointment(s)/Referral(s): Td Montalvo MD [STAFF PHYSICIAN] - 1 Week (KEEP YOUR PREVIOUSLY SCHEDULED APPOINTMENT ON October @ 10:00A M) Patient Instructions/Handouts: *[facility] - After Heart Catheterization - Acct Exec Instructions, Moderate Sedation (DC) Activity/Diet/Wound Care/Special Instructions: *NO LIFTING, PUSHING, OR PULLING ANYTHING OVER 5 POUNDS FOR 5 DAYS *NO DRIVING FOR 3 DAYS *YOU CAN SHOWER TOMORROW BUT DO NOT SUBMERSE YOUR PUNCTURE SITE IN WATER FOR A FEW DAYS TO PREVENT INFECTION - SO NO TUB BATHS, POOLS, HOT TUBS, DISHES....ETC *ANY SIGNS OF BLEEDING (HARDNESS, SWELLING, OR EXCESSIVE BRUISING) HOLD DIRECT PRESSURE ON YOUR PUNCTURE SITE AND COME TO THE NEAREST EMERGENCY ROOM TO GET YOUR PUNCTURE SITE LOOKED AT - DO NOT DRIVE YOURSELF! EITHER CALL EMS OR HAVE SOMEONE DRIVE YOU!
[2022-10-18] MEDS: GABAPENTIN 300 MG CAP PO SCH (08:39)
[2022-10-18] MEDS: traMADol 50 MG TAB PO SCH (08:39)
[2022-10-18] MEDS: BUMETANIDE 0.5 MG TABLET PO SCH (08:39)
[2022-10-18] MEDS ORDERED: MONTELUKAST 10 MG TAB PO SCH (09:00)
[2022-10-18] MEDS ORDERED: CLOPIDOGREL 75 MG TAB PO SCH (09:00)
[2022-10-18] MEDS ORDERED: SPIRONOLACTONE 25 MG TAB PO SCH (09:00)
== END 2022-10-18 10:10 | disposition home or self-care (01) ==
LOC: CATHCVL 09:02 → 6NMEDSUR 12:54 → CATHCVL 10-18 10:10
PROVIDERS: ATTEND Internal Medicine Interventional Cardiology
DX: I25.10 Atherosclerotic heart disease of native coronary artery without angina pectoris (principal); Z95.5 Presence of coronary angioplasty implant and graft
CPT/HCPCS: 94640 ×4; 92978; 93799; 0715T; 82565; 85610; 83036; C9600; C1769 ×2; C1887 ×2; C1894; C1725 ×2; C1753; C1874; C1761; J2250; J2001; J1644; Q9967; J3010

== ENCOUNTER 2022-12-15 15:27 | Observation (INO) | payer MEDICARE ==
[2022-12-15 15:43] LABS: Glucose,Whole Blood 573 mg/dL (70-110)
[2022-12-15] MEDS ORDERED: ALBUTEROL NEBULIZED 2.5 MG/3 ML INHALATION STA (16:08)
[2022-12-15] MEDS ORDERED: IPRATROPIUM 0.5 MG/2.5 ML NEBU INHALATION STA (16:08)
[2022-12-15] MEDS ORDERED: SODIUM CHLORIDE 0.9% 1,000 ML IV STA (16:08)
--- NOTE | 2022-12-15 16:45 | XR ---
EXAMINATION TYPE: XR chest 2V DATE OF EXAM: 12/15/2022 COMPARISON: Chest x-ray November 02, 2018 HISTORY: Cough and difficulty in breathing. TECHNIQUE: Frontal and lateral views of the chest are obtained. FINDINGS: There is chronic parenchymal change bilaterally without suspicious focal air space opacity , pleural effusion, or pneumothorax seen. The cardiac silhouette size is stable and within normal li mits. The osseous structures are intact. IMPRESSION: Chronic emphysematous change without acute pulmonary process.
[2022-12-15 17:01] LABS: Basophils % (A) 0 %; Eosinophils # (A) 0.2 k/uL (0-0.7); Eosinophils % (A) 1 %; HCT 42.4 % (39.0-53.0); HGB 14.4 gm/dL (13.0-17.5); Lymphocytes # (A) 1.2 k/uL (1.0-4.8); Lymphocytes % (A) 12 %; MCH 31.6 pg (25.0-35.0); MCV 92.9 fL (80.0-100.0); Mean Platelet Volume 8.2; Monocytes # (A) 0.5 k/uL (0-1.0); Monocytes % (A) 5 %; Neutrophils # (A) 8.4 k/uL (1.3-7.7); Neutrophils % (A) 81 %; Platelet Count 171 k/uL (150-450); RBC 4.56 m/uL (4.30-5.90); RDW 13.1 % (11.5-15.5); WBC 10.4 k/uL (3.8-10.6)
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
[2022-12-15 17:24] LABS: ALT 43 U/L (4-49); AST 31 U/L (17-59); African American GFR (CKD) >90 (>60 ml/min/1.73 sqM); Albumin 4.2 g/dL (3.5-5.0); Alkaline Phosphatase 160 U/L (38-126); Anion Gap 12 mmol/L; Blood Urea Nitrogen 32 mg/dL (9-20); Calcium 9.4 mg/dL (8.4-10.2); Carbon Dioxide 25 mmol/L (22-30); Chloride 94 mmol/L (98-107); Non-African American GFR(CKD) >90 (>60 ml/min/1.73 sqM); Potassium 5.1 mmol/L (3.5-5.1); Sodium 131 mmol/L (137-145); Total Bilirubin 0.5 mg/dL (0.2-1.3); Total Protein 7.3 g/dL (6.3-8.2)
[2022-12-15 17:25] LABS: INR 3.1 (<1.2); Partial Thromboplastin Time 33.2 sec (22.0-30.0); Prothrombin Time 29.7 sec (9.0-12.0)
[2022-12-15 17:40] LABS: Glucose 579 mg/dL (74-99)
[2022-12-15] MEDS ORDERED: methylPREDNISolone SOD SUCCI 125 MG/2 ML VIAL IV STA (17:43)
[2022-12-15] MEDS ORDERED: SODIUM CHLORIDE 0.9% 1,000 ML IV ONE (17:43)
[2022-12-15] MEDS ORDERED: INSULIN ASPART (NovoLOG) 100 UNIT/ML VIAL SQ ONE ×3 (17:43→21:27)
[2022-12-15] MEDS ORDERED: AMPICILLIN-SULBACTAM 3 GM in SODIUM CHLORIDE 0.9% 100 ML IVPB STA (17:44)
[2022-12-15] MEDS ORDERED: AMPICILLIN-SULBACTAM 3 GM in SODIUM CHLORIDE 0.9% 100 ML IVPB SCH (18:00)
[2022-12-15] MEDS ORDERED: NALOXONE 0.4 MG/ML 1 ML VIAL IVP PRN (18:42)
[2022-12-15] MEDS ORDERED: DEXTROSE 50% SYRINGE 50 ML IVP PRN ×2 (18:54)
[2022-12-15 18:59] LABS: Glucose,Whole Blood 436 mg/dL (70-110)
[2022-12-15 19:30] LABS: Glucose,Whole Blood 443 mg/dL (70-110)
[2022-12-15] MEDS: SODIUM CHLORIDE 0.9% 1,000 ML IV SCH (19:31)
[2022-12-15] MEDS ORDERED: ALBUTEROL NEBULIZED 2.5 MG/3 ML INHALATION SCH (20:00)
[2022-12-15] MEDS ORDERED: IPRATROPIUM 0.5 MG/2.5 ML NEBU INHALATION SCH (20:00)
[2022-12-15] MEDS ORDERED: IPRATROPIUM-ALBUTEROL 3 ML NEB INHALATION SCH (20:00)
[2022-12-15] MEDS ORDERED: INSULIN ASPART (NovoLOG) 100 UNIT/ML VIAL SQ SCH (21:00)
[2022-12-15 21:23] LABS: Glucose,Whole Blood 440 mg/dL (70-110)
[2022-12-15] MEDS: GABAPENTIN 300 MG CAP PO SCH (21:38)
[2022-12-15] MEDS: MONTELUKAST 10 MG TAB PO SCH (21:38)
[2022-12-15] MEDS: TAMSULOSIN 0.4 MG CAP.ER.24H PO SCH (21:38)
[2022-12-15] MEDS: carvediloL 12.5 MG TAB PO SCH (21:38)
[2022-12-15] MEDS: BUMETANIDE 0.5 MG TABLET PO SCH (22:26)
[2022-12-16] MEDS: AMPICILLIN-SULBACTAM 3 GM in SODIUM CHLORIDE 0.9% 100 ML IVPB SCH ×3 (00:04→11:16)
[2022-12-16] MEDS: methylPREDNISolone SOD SUCCI 125 MG/2 ML VIAL IV SCH ×5 (00:04→23:27)
[2022-12-16] MEDS: IPRATROPIUM-ALBUTEROL 3 ML NEB INHALATION PRN ×2 (00:13→04:15)
[2022-12-16 02:03] LABS: Glucose,Whole Blood 458 mg/dL (70-110)
[2022-12-16] MEDS: INSULIN ASPART (NovoLOG) 100 UNIT/ML VIAL SQ SCH ×4 (02:05→17:03)
[2022-12-16 05:22] LABS: INR 2.8 (<1.2); Prothrombin Time 27.8 sec (9.0-12.0)
[2022-12-16] MEDS: SODIUM CHLORIDE 0.9% 1,000 ML IV SCH ×3 (05:42→16:44)
[2022-12-16 05:52] LABS: Glucose,Whole Blood 364 mg/dL (70-110)
[2022-12-16] MEDS: carvediloL 12.5 MG TAB PO SCH ×2 (05:58→17:02)
[2022-12-16] MEDS: SPIRONOLACTONE 25 MG TAB PO SCH (08:26)
[2022-12-16] MEDS: MONTELUKAST 10 MG TAB PO SCH (08:27)
[2022-12-16] MEDS: BUMETANIDE 0.5 MG TABLET PO SCH ×2 (08:27→21:09)
[2022-12-16] MEDS: ATORVASTATIN 40 MG TAB PO SCH (08:27)
[2022-12-16] MEDS: ASPIRIN 81 MG PO SCH (08:27)
[2022-12-16] MEDS: GABAPENTIN 300 MG CAP PO SCH ×2 (08:27→21:09)
[2022-12-16] MEDS: TAMSULOSIN 0.4 MG CAP.ER.24H PO SCH ×2 (08:27→21:09)
[2022-12-16] MEDS: CLOPIDOGREL 75 MG TAB PO SCH (08:27)
[2022-12-16] MEDS: IPRATROPIUM-ALBUTEROL 3 ML NEB INHALATION SCH ×4 (09:29→20:33)
[2022-12-16] MEDS: BUDESONIDE 0.5 MG/2 ML NEBU INHALATION SCH ×2 (09:29→20:33)
[2022-12-16 11:37] LABS: Glucose,Whole Blood 438 mg/dL (70-110)
[2022-12-16 11:46] VITALS: BMI 29.5
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
[2022-12-16] MEDS: AZITHROMYCIN 250 MG TAB PO SCH (13:57)
[2022-12-16] MEDS ORDERED: INSULIN DETEMIR (LEVEMIR) 100 UNIT/ML SYR SQ SCH (14:00)
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
[2022-12-16 16:55] LABS: Glucose,Whole Blood 514 mg/dL (70-110)
[2022-12-16] MEDS: WARFARIN 3 MG TAB PO SCH (17:02)
[2022-12-16 20:21] LABS: Glucose,Whole Blood 519 mg/dL (70-110)
[2022-12-16 20:21] LABS: Glucose,Whole Blood 544 mg/dL (70-110)
[2022-12-16] MEDS ORDERED: Potassium Replacement Protocol 1 EACH MISC MISCELLANE PRN (20:41)
[2022-12-16] MEDS ORDERED: DEXTROSE 50% SYRINGE 50 ML IVP PRN ×2 (20:41)
[2022-12-16] MEDS ORDERED: Magnesium Replacement Protocol 1 EACH MISC MISCELLANE PRN (20:41)
[2022-12-16] MEDS: INSULIN REGULAR 100 UNIT in SODIUM CHLORIDE 0.9% 100 ML IV SCH (21:12)
[2022-12-16 21:14] LABS: Glucose,Whole Blood 552 mg/dL (70-110)
[2022-12-16] MEDS ORDERED: INSULIN REGULAR BOLUS (FROM DRIP BAG) IV ONE (21:30)
[2022-12-16 22:05] LABS: Basophils % (A) 0 %; Eosinophils # (A) 0.1 k/uL (0-0.7); Eosinophils % (A) 1 %; HCT 39.4 % (39.0-53.0); HGB 13.1 gm/dL (13.0-17.5); Lymphocytes # (A) 0.6 k/uL (1.0-4.8); Lymphocytes % (A) 6 %; MCH 31.4 pg (25.0-35.0); MCHC 33.3 g/dL (31.0-37.0); MCV 94.3 fL (80.0-100.0); Mean Platelet Volume 8.2; Monocytes # (A) 0.1 k/uL (0-1.0); Monocytes % (A) 1 %; Neutrophils # (A) 9.8 k/uL (1.3-7.7); Neutrophils % (A) 92 %; Platelet Count 133 k/uL (150-450); RBC 4.18 m/uL (4.30-5.90); RDW 13.3 % (11.5-15.5); WBC 10.7 k/uL (3.8-10.6)
[2022-12-16 22:18] LABS: Glucose,Whole Blood 422 mg/dL (70-110)
[2022-12-16 22:25] LABS: African American GFR (CKD) >90 (>60 ml/min/1.73 sqM); Anion Gap 8 mmol/L; Blood Urea Nitrogen 27 mg/dL (9-20); Carbon Dioxide 24 mmol/L (22-30); Chloride 101 mmol/L (98-107); Glucose 447 mg/dL (74-99); Non-African American GFR(CKD) >90 (>60 ml/min/1.73 sqM); Potassium 4.1 mmol/L (3.5-5.1); Sodium 133 mmol/L (137-145)
[2022-12-16 22:52] LABS: VBG PH 7.4 (7.31-7.41)
[2022-12-16 23:16] LABS: Glucose,Whole Blood 399 mg/dL (70-110)
[2022-12-17 00:19] LABS: Glucose,Whole Blood 246 mg/dL (70-110)
[2022-12-17] MEDS: D5-0.45% NACL WITH KCL 20MEQ/L 1,000 ML IV SCH ×4 (00:43→21:17)
[2022-12-17 01:19] LABS: Glucose,Whole Blood 219 mg/dL (70-110)
[2022-12-17 01:49] LABS: Potassium 3.7 mmol/L (3.5-5.1)
[2022-12-17 01:50] LABS: African American GFR (CKD) >90 (>60 ml/min/1.73 sqM); Anion Gap 9 mmol/L; Blood Urea Nitrogen 25 mg/dL (9-20); Carbon Dioxide 26 mmol/L (22-30); Chloride 102 mmol/L (98-107); Glucose 212 mg/dL (74-99); Non-African American GFR(CKD) >90 (>60 ml/min/1.73 sqM); Phosphorus 3.6 mg/dL (2.5-4.5); Sodium 137 mmol/L (137-145)
[2022-12-17 02:17] LABS: Glucose,Whole Blood 173 mg/dL (70-110)
[2022-12-17] MEDS: SODIUM CHLORIDE 0.9% 1,000 ML IV SCH ×12 (03:12→23:56)
[2022-12-17 03:24] LABS: Glucose,Whole Blood 123 mg/dL (70-110)
[2022-12-17] MEDS: INSULIN DETEMIR (LEVEMIR) 100 UNIT/ML SYR SQ SCH ×2 (03:24→09:01)
[2022-12-17 06:00] LABS: Glucose,Whole Blood 175 mg/dL (70-110)
[2022-12-17] MEDS: methylPREDNISolone SOD SUCCI 125 MG/2 ML VIAL IV SCH ×4 (06:19→23:43)
[2022-12-17] MEDS: carvediloL 12.5 MG TAB PO SCH ×2 (06:19→17:49)
[2022-12-17] MEDS: INSULIN ASPART (NovoLOG) 100 UNIT/ML VIAL SQ SCH ×4 (06:20→21:15)
[2022-12-17] MEDS: INSULIN REGULAR 100 UNIT in SODIUM CHLORIDE 0.9% 100 ML IV SCH (06:34)
[2022-12-17] MEDS ORDERED: INSULIN DETEMIR (LEVEMIR) 100 UNIT/ML SYR SQ SCH (07:00)
[2022-12-17 07:11] LABS: Basophils % (A) 0 %; Eosinophils % (A) 0 %; HCT 36.8 % (39.0-53.0); HGB 12.4 gm/dL (13.0-17.5); Lymphocytes # (A) 0.8 k/uL (1.0-4.8); Lymphocytes % (A) 6 %; MCH 31.2 pg (25.0-35.0); MCHC 33.6 g/dL (31.0-37.0); Mean Platelet Volume 8.4; Monocytes # (A) 0.4 k/uL (0-1.0); Monocytes % (A) 3 %; Neutrophils % (A) 90 %; Platelet Count 131 k/uL (150-450); RBC 3.96 m/uL (4.30-5.90); RDW 13.3 % (11.5-15.5); WBC 12.2 k/uL (3.8-10.6)
[2022-12-17 07:19] LABS: ALT 45 U/L (4-49); AST 31 U/L (17-59); African American GFR (CKD) >90 (>60 ml/min/1.73 sqM); Albumin 3.3 g/dL (3.5-5.0); Alkaline Phosphatase 62 U/L (38-126); Anion Gap 7 mmol/L; Blood Urea Nitrogen 21 mg/dL (9-20); Calcium 7.9 mg/dL (8.4-10.2); Carbon Dioxide 26 mmol/L (22-30); Chloride 103 mmol/L (98-107); Glucose 173 mg/dL (74-99); Non-African American GFR(CKD) >90 (>60 ml/min/1.73 sqM); Phosphorus 3.8 mg/dL (2.5-4.5); Potassium 4.1 mmol/L (3.5-5.1); Sodium 136 mmol/L (137-145); Total Bilirubin 0.6 mg/dL (0.2-1.3)
[2022-12-17 07:23] LABS: INR 1.9 (<1.2); Prothrombin Time 18.9 sec (9.0-12.0)
[2022-12-17] MEDS: ASPIRIN 81 MG PO SCH (08:55)
[2022-12-17] MEDS: TAMSULOSIN 0.4 MG CAP.ER.24H PO SCH ×2 (08:55→21:14)
[2022-12-17] MEDS: MONTELUKAST 10 MG TAB PO SCH (08:55)
[2022-12-17] MEDS: BUMETANIDE 0.5 MG TABLET PO SCH ×2 (08:55→22:00)
[2022-12-17] MEDS: ATORVASTATIN 40 MG TAB PO SCH (08:55)
[2022-12-17] MEDS: CLOPIDOGREL 75 MG TAB PO SCH (08:55)
[2022-12-17] MEDS: SPIRONOLACTONE 25 MG TAB PO SCH (08:55)
[2022-12-17] MEDS: GABAPENTIN 300 MG CAP PO SCH ×2 (08:55→21:14)
[2022-12-17] MEDS: AZITHROMYCIN 250 MG TAB PO SCH (08:55)
[2022-12-17] MEDS ORDERED: FAMOTIDINE 20 MG/2 ML VIAL IV SCH (09:00)
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
[2022-12-17] MEDS: BUDESONIDE 0.5 MG/2 ML NEBU INHALATION SCH ×2 (09:50→20:55)
[2022-12-17] MEDS: IPRATROPIUM-ALBUTEROL 3 ML NEB INHALATION SCH ×4 (09:50→20:55)
[2022-12-17 11:55] LABS: Glucose,Whole Blood 330 mg/dL (70-110)
[2022-12-17 16:45] LABS: Glucose,Whole Blood 359 mg/dL (70-110)
[2022-12-17] MEDS ORDERED: INSULN ASP PRT/INSULIN ASPART 100 UNIT/ML 10 ML VIAL SQ SCH (17:30)
[2022-12-17] MEDS: WARFARIN 3 MG TAB PO SCH (17:49)
[2022-12-17 20:16] LABS: Glucose,Whole Blood 385 mg/dL (70-110)
[2022-12-17] MEDS: FAMOTIDINE 20 MG TAB PO SCH (21:14)
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
[2022-12-17] MEDS ORDERED: WARFARIN 1 MG TAB PO ONE (21:45)
[2022-12-17] MEDS: metFORMIN 500 MG TAB PO SCH (21:51)
[2022-12-18 06:15] LABS: Glucose,Whole Blood 373 mg/dL (70-110)
[2022-12-18] MEDS: metFORMIN 500 MG TAB PO SCH ×2 (06:47→17:29)
[2022-12-18] MEDS: INSULIN ASPART (NovoLOG) 100 UNIT/ML VIAL SQ SCH ×4 (06:47→21:28)
[2022-12-18] MEDS: carvediloL 12.5 MG TAB PO SCH ×2 (06:47→17:29)
[2022-12-18] MEDS: methylPREDNISolone SOD SUCCI 125 MG/2 ML VIAL IV SCH ×2 (06:47→11:46)
[2022-12-18] MEDS: SODIUM CHLORIDE 0.9% 1,000 ML IV SCH ×2 (06:55)
[2022-12-18] MEDS ORDERED: INSULN ASP PRT/INSULIN ASPART 100 UNIT/ML 10 ML VIAL SQ SCH ×3 (07:30→17:30)
[2022-12-18] MEDS: IPRATROPIUM-ALBUTEROL 3 ML NEB INHALATION SCH ×4 (07:48→20:26)
[2022-12-18] MEDS: BUDESONIDE 0.5 MG/2 ML NEBU INHALATION SCH ×2 (07:48→20:26)
[2022-12-18] MEDS: ASPIRIN 81 MG PO SCH (08:34)
[2022-12-18] MEDS: GABAPENTIN 300 MG CAP PO SCH ×2 (08:34→21:28)
[2022-12-18] MEDS: SPIRONOLACTONE 25 MG TAB PO SCH (08:34)
[2022-12-18] MEDS: traMADol 50 MG TAB PO PRN ×2 (08:34→21:34)
[2022-12-18] MEDS: MONTELUKAST 10 MG TAB PO SCH (08:34)
[2022-12-18] MEDS: CLOPIDOGREL 75 MG TAB PO SCH (08:35)
[2022-12-18] MEDS: FAMOTIDINE 20 MG TAB PO SCH ×2 (08:35→21:28)
[2022-12-18] MEDS: AZITHROMYCIN 250 MG TAB PO SCH (08:35)
[2022-12-18] MEDS: ATORVASTATIN 40 MG TAB PO SCH (08:36)
[2022-12-18] MEDS: BUMETANIDE 0.5 MG TABLET PO SCH (08:36)
[2022-12-18] MEDS: TAMSULOSIN 0.4 MG CAP.ER.24H PO SCH ×2 (08:36→21:28)
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
[2022-12-18 09:34] LABS: Prothrombin Time 19.7 sec (9.0-12.0)
[2022-12-18 11:44] LABS: Glucose,Whole Blood 345 mg/dL (70-110)
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
[2022-12-18] MEDS: methylPREDNISolone SOD SUCCI 40 MG/ML 1 ML VIAL IV SCH (16:29)
[2022-12-18 16:50] LABS: Glucose,Whole Blood 396 mg/dL (70-110)
[2022-12-18] MEDS ORDERED: WARFARIN 2 MG TAB PO SCH (18:00)
[2022-12-18 20:03] LABS: Glucose,Whole Blood 374 mg/dL (70-110)
[2022-12-19] MEDS: methylPREDNISolone SOD SUCCI 40 MG/ML 1 ML VIAL IV SCH ×2 (00:05→09:32)
[2022-12-19] MEDS: IPRATROPIUM-ALBUTEROL 3 ML NEB INHALATION PRN ×2 (03:20)
[2022-12-19 03:35] LABS: Glucose,Whole Blood 263 mg/dL (70-110)
[2022-12-19 06:03] LABS: Glucose,Whole Blood 285 mg/dL (70-110)
[2022-12-19] MEDS: INSULIN ASPART (NovoLOG) 100 UNIT/ML VIAL SQ SCH (06:33)
[2022-12-19] MEDS: metFORMIN 500 MG TAB PO SCH (06:33)
[2022-12-19] MEDS: carvediloL 12.5 MG TAB PO SCH (06:33)
[2022-12-19] MEDS: SODIUM CHLORIDE 0.9% 1,000 ML IV SCH (06:34)
[2022-12-19] MEDS ORDERED: INSULN ASP PRT/INSULIN ASPART 100 UNIT/ML 10 ML VIAL SQ SCH ×2 (07:30)
[2022-12-19 08:35] LABS: INR 2.3 (<1.2); Prothrombin Time 22.2 sec (9.0-12.0)
[2022-12-19] MEDS: IPRATROPIUM-ALBUTEROL 3 ML NEB INHALATION SCH ×2 (09:08→12:23)
[2022-12-19] MEDS: BUDESONIDE 0.5 MG/2 ML NEBU INHALATION SCH (09:08)
[2022-12-19] MEDS: ATORVASTATIN 40 MG TAB PO SCH (09:32)
[2022-12-19] MEDS: ASPIRIN 81 MG PO SCH (09:32)
[2022-12-19] MEDS: SPIRONOLACTONE 25 MG TAB PO SCH (09:32)
[2022-12-19] MEDS: MONTELUKAST 10 MG TAB PO SCH (09:32)
[2022-12-19] MEDS: GABAPENTIN 300 MG CAP PO SCH (09:32)
[2022-12-19] MEDS: TAMSULOSIN 0.4 MG CAP.ER.24H PO SCH (09:32)
[2022-12-19] MEDS: FAMOTIDINE 20 MG TAB PO SCH (09:32)
[2022-12-19] MEDS: CLOPIDOGREL 75 MG TAB PO SCH (09:32)
[2022-12-19] MEDS: traMADol 50 MG TAB PO PRN (09:41)
[2022-12-19 11:05] VITALS: BP 114/71; RESP 18; TEMP 97.6
[2022-12-19 11:36] LABS: Glucose,Whole Blood 306 mg/dL (70-110)
[2022-12-19 12:35] VITALS: PULSE 80
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
== END 2022-12-19 16:02 | disposition home or self-care (01) ==
LOC: EC 15:27 → 3SCARD 18:47 → INTOOBSV 18:47 → 3SCARD 20:21 → UNDODISIN 12-19 16:02
PROVIDERS: ADMIT Family Medicine; ATTEND Family Medicine
DX: J44.1 Chronic obstructive pulmonary disease with (acute) exacerbation (principal); E11.65 Type 2 diabetes mellitus with hyperglycemia; T38.0X5A Adverse effect of glucocorticoids and synthetic analogues, initial encounter; J18.9 Pneumonia, unspecified organism; J44.0 Chronic obstructive pulmonary disease with (acute) lower respiratory infection; F17.200 Nicotine dependence, unspecified, uncomplicated; B19.20 Unspecified viral hepatitis C without hepatic coma; I48.20 Chronic atrial fibrillation, unspecified; E78.5 Hyperlipidemia, unspecified; I25.10 Atherosclerotic heart disease of native coronary artery without angina pectoris; N40.0 Benign prostatic hyperplasia without lower urinary tract symptoms; Z79.899 Other long term (current) drug therapy; Z79.84 Long term (current) use of oral hypoglycemic drugs; Z87.19 Personal history of other diseases of the digestive system; Z83.3 Family history of diabetes mellitus; Z80.9 Family history of malignant neoplasm, unspecified; Z79.82 Long term (current) use of aspirin; Z91.198 Patient's noncompliance with other medical treatment and regimen for other reason; Z95.5 Presence of coronary angioplasty implant and graft
CPT/HCPCS: 96376 ×4; 96361 ×3; 96366; 96375 ×2; 96365; 99285; 36415; 94640 ×9; 93005; 97161; 97165; 85379; 80051 ×2; 80053 ×2; 82565 ×2; 82803; 82009 ×2; 83605 ×3; 83735; 84100; 82947 ×2; 84520 ×2; 84484; 85025 ×3; 85610 ×5; 85730; 87040 ×2; 83036; 71046; G0378 ×5; J2920 ×2; J2930 ×4; J0295 ×2

== ENCOUNTER 2022-12-20 12:43 | Inpatient (IN) | payer MEDICARE ==
[2022-12-20 12:53] LABS: Glucose,Whole Blood 461 mg/dL (70-110)
[2022-12-20 12:54] VITALS: TEMP 97.7
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
--- NOTE | 2022-12-20 15:14 | XR ---
EXAMINATION TYPE: XR chest 2V DATE OF EXAM: 12/20/2022 3:05 PM COMPARISON: Chest radiographs from 12/15/2022 TECHNIQUE: XR chest 2V Frontal and lateral views of the chest. CLINICAL INDICATION:Male, 67 years old with history of difficulty breathing; FINDINGS: Lungs/Pleura: There is flattening of the diaphragm with increased lucency of the lungs. No evidence o f pneumothorax, pleural effusion or focal consolidation. Pulmonary vascularity: Unremarkable. Heart/mediastinum: Cardiomediastinal silhouette is unremarkable. Atherosclerotic calcifications are seen in the aorta. Musculoskeletal: No acute osseous pathology. IMPRESSION: 1. No acute cardiopulmonary disease process. No significant change from prior examination. 2. COPD changes.
[2022-12-20 15:56] LABS: Basophils % (A) 0 %; Eosinophils # (A) 0.1 k/uL (0-0.7); Eosinophils % (A) 1 %; HCT 43.8 % (39.0-53.0); HGB 14.7 gm/dL (13.0-17.5); Lymphocytes # (A) 0.7 k/uL (1.0-4.8); Lymphocytes % (A) 7 %; MCH 31.7 pg (25.0-35.0); MCHC 33.5 g/dL (31.0-37.0); MCV 94.5 fL (80.0-100.0); Mean Platelet Volume 8.6; Monocytes # (A) 0.6 k/uL (0-1.0); Monocytes % (A) 6 %; Neutrophils # (A) 8.8 k/uL (1.3-7.7); Neutrophils % (A) 85 %; Platelet Count 153 k/uL (150-450); RBC 4.64 m/uL (4.30-5.90); RDW 13.5 % (11.5-15.5); WBC 10.4 k/uL (3.8-10.6)
[2022-12-20 16:03] LABS: INR 1.8 (<1.2); Partial Thromboplastin Time 24.8 sec (22.0-30.0); Prothrombin Time 18.1 sec (9.0-12.0)
[2022-12-20 16:08] LABS: ALT 81 U/L (4-49); AST 37 U/L (17-59); African American GFR (CKD) >90 (>60 ml/min/1.73 sqM); Albumin 3.9 g/dL (3.5-5.0); Alkaline Phosphatase 189 U/L (38-126); Anion Gap 11 mmol/L; Blood Urea Nitrogen 35 mg/dL (9-20); Calcium 8.7 mg/dL (8.4-10.2); Carbon Dioxide 29 mmol/L (22-30); Chloride 93 mmol/L (98-107); Glucose 427 mg/dL (74-99); Non-African American GFR(CKD) 88 (>60 ml/min/1.73 sqM); Potassium 4.8 mmol/L (3.5-5.1); Sodium 133 mmol/L (137-145); Total Bilirubin 0.7 mg/dL (0.2-1.3); Total Protein 6.5 g/dL (6.3-8.2)
[2022-12-20] MEDS ORDERED: INSULIN REGULAR 100 UNIT/ML VIAL (IV) IV ONE (17:09)
[2022-12-20] MEDS ORDERED: SODIUM CHLORIDE 0.9% 1,000 ML IV ONE ×2 (17:09→17:54)
[2022-12-20] MEDS ORDERED: IPRATROPIUM-ALBUTEROL 3 ML NEB INHALATION PRN (17:51)
[2022-12-20] MEDS ORDERED: SODIUM CHLORIDE 0.9% 1,000 ML IV SCH (18:00)
[2022-12-20 18:15] LABS: Glucose,Whole Blood 305 mg/dL (70-110)
[2022-12-20] MEDS ORDERED: NON FORMULARY DRUG (Warfarin Sodium [Coumadin] 6 MG Tablet) PO SCH (19:00)
[2022-12-20] MEDS ORDERED: WARFARIN 3 MG TAB PO ONE (19:00)
[2022-12-20] MEDS ORDERED: WARFARIN 1 MG TAB PO ONE (19:00)
[2022-12-20 20:01] VITALS: BP 145/85; PULSE 74; RESP 20
[2022-12-20] MEDS ORDERED: IPRATROPIUM 0.5 MG/2.5 ML NEBU INHALATION PRN (20:32)
[2022-12-20] MEDS ORDERED: ALBUTEROL NEBULIZED 2.5 MG/3 ML INHALATION PRN (20:32)
[2022-12-20] MEDS ORDERED: BUMETANIDE 0.5 MG TABLET PO SCH (21:00)
[2022-12-20] MEDS ORDERED: FAMOTIDINE 20 MG TAB PO SCH (21:00)
[2022-12-20] MEDS ORDERED: metFORMIN 500 MG TAB PO SCH (21:00)
[2022-12-20] MEDS ORDERED: GABAPENTIN 300 MG CAP PO SCH (21:00)
[2022-12-20] MEDS ORDERED: carvediloL 12.5 MG TAB PO SCH (21:00)
[2022-12-20] MEDS ORDERED: traMADol 50 MG TAB PO SCH (21:00)
[2022-12-20] MEDS ORDERED: TAMSULOSIN 0.4 MG CAP.ER.24H PO SCH (21:00)
[2022-12-20] MEDS ORDERED: NALOXONE 0.4 MG/ML 1 ML VIAL IV PRN (21:30)
[2022-12-21] MEDS ORDERED: INSULN ASP PRT/INSULIN ASPART 100 UNIT/ML 10 ML VIAL SQ SCH (07:30)
[2022-12-21] MEDS ORDERED: SYMBICORT 80-4.5 MCG INHALER INHALATION SCH (08:00)
[2022-12-21] MEDS ORDERED: NON FORMULARY DRUG (Fluticasone/Umeclidin/Vilanter [Trelegy Ellipta 100-62.5-25] 1 EACH Bl INHALATION SCH (08:00)
[2022-12-21] MEDS ORDERED: IPRATROPIUM 0.5 MG/2.5 ML NEBU INHALATION SCH (08:00)
[2022-12-21] MEDS ORDERED: MONTELUKAST 10 MG TAB PO SCH (09:00)
[2022-12-21] MEDS ORDERED: AZITHROMYCIN 250 MG TAB PO SCH (09:00)
[2022-12-21] MEDS ORDERED: ASPIRIN 81 MG PO SCH (09:00)
[2022-12-21] MEDS ORDERED: SPIRONOLACTONE 25 MG TAB PO SCH (09:00)
[2022-12-21] MEDS ORDERED: ATORVASTATIN 40 MG TAB PO SCH (09:00)
[2022-12-21] MEDS ORDERED: CLOPIDOGREL 75 MG TAB PO SCH (09:00)
[2022-12-21] MEDS ORDERED: WARFARIN 7.5 MG TAB PO SCH (19:00)
== END 2022-12-20 21:42 | disposition left against medical advice (07) | DRG 192 ==
LOC: EC 12:43 → 4SSUR 21:31
PROVIDERS: ADMIT Family Medicine; ATTEND Family Medicine
DX: J44.1 Chronic obstructive pulmonary disease with (acute) exacerbation (principal); H91.90 Unspecified hearing loss, unspecified ear; E11.65 Type 2 diabetes mellitus with hyperglycemia; M19.90 Unspecified osteoarthritis, unspecified site; Z53.29 Procedure and treatment not carried out because of patient's decision for other reasons; E78.5 Hyperlipidemia, unspecified; Z79.02 Long term (current) use of antithrombotics/antiplatelets; Z79.82 Long term (current) use of aspirin; Z87.19 Personal history of other diseases of the digestive system; Z86.010 Personal history of colon polyps; Z87.81 Personal history of (healed) traumatic fracture; Z79.84 Long term (current) use of oral hypoglycemic drugs; Z79.4 Long term (current) use of insulin
CPT/HCPCS: 36415; 71046; 80053; 83605; 83880; 85025; 85610; 85730; 93005; 96360; 96361; 99285

== ENCOUNTER 2023-01-19 05:37 | Emergency (ER) | payer MEDICARE ==
[2023-01-19 05:48] VITALS: BP 151/81; PULSE 92; RESP 18; TEMP 98.2
[2023-01-19] MEDS ORDERED: ACET/COD 300 MG/30 MG STARTER PACK 6 TAB BTL PO STA (06:14)
[2023-01-19] MEDS ORDERED: HYDROcodone/APAP 5-325MG 1 EACH TAB PO STA (06:14)
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
== END 2023-01-19 06:50 | disposition home or self-care (01) ==
LOC: EC 05:37
DX: K04.7 Periapical abscess without sinus (principal); I48.91 Unspecified atrial fibrillation; J44.9 Chronic obstructive pulmonary disease, unspecified; E11.9 Type 2 diabetes mellitus without complications; E78.5 Hyperlipidemia, unspecified; M19.90 Unspecified osteoarthritis, unspecified site; F17.200 Nicotine dependence, unspecified, uncomplicated; Z79.01 Long term (current) use of anticoagulants; Z79.51 Long term (current) use of inhaled steroids; Z79.84 Long term (current) use of oral hypoglycemic drugs; Z79.4 Long term (current) use of insulin; Z79.899 Other long term (current) drug therapy; Z79.1 Long term (current) use of non-steroidal anti-inflammatories (NSAID)
CPT/HCPCS: 99282

== ENCOUNTER → 2023-03-10 | Outpatient (CLI) | payer MEDICARE | END | disposition home or self-care (01) | LOC: LABWHC1 09:39 | PROVIDERS: ATTEND Podiatrist | DX: Z53.9 Procedure and treatment not carried out, unspecified reason (principal) ==

== ENCOUNTER → 2023-03-10 | Outpatient (CLI) | payer MEDICARE ==
--- NOTE | 2023-03-10 10:59 | XR ---
EXAMINATION TYPE: XR foot complete LT DATE OF EXAM: 03/10/2023 CLINICAL HISTORY: pain TECHNIQUE: Frontal, lateral and oblique images of the left foot are obtained. COMPARISON: None. FINDINGS: There is no acute fracture/dislocation evident. The joint spaces appear within normal ingram its. The overlying soft tissue appears unremarkable. Vascular calcifications are noted. IMPRESSION: There is no acute fracture or dislocation. ICD 10 NO FRACTURE, INITIAL EVALUATION
[2023-03-10 15:36] LABS: ALT 22 U/L (10-49); AST 21 U/L (14-35); Albumin 4.2 d/dL (3.8-4.9); Alkaline Phosphatase 90 U/L (41-126); Blood Urea Nitrogen 19.4 mg/dL (9.0-27.0); Calcium 9.5 mg/dL (8.7-10.3); Carbon Dioxide 29.8 mmol/L (21.6-31.8); Chloride 96 mmol/L (96-109); Glucose 168 mg/dL (70-110); Potassium 4.7 mmol/L (3.5-5.5); Sodium 138 mmol/L (135-145); Total Bilirubin 0.3 mg/dL (0.3-1.2); Total Protein 7.2 d/dL (6.2-8.2)
[2023-03-10 15:37] LABS: Prealbumin 15.8 mg/dL (18.0-42.0)
[2023-03-10 15:51] LABS: Basophils # (A) 0.08 X 10*3/uL (0.00-0.10); Eosinophils # (A) 0.27 X 10*3/uL (0.04-0.35); Eosinophils % (A) 3.5 %; HCT 43.9 % (39.6-50.0); HGB 13.9 d/dL (12.0-15.0); Lymphocytes # (A) 1.61 X 10*3/uL (0.90-5.00); Lymphocytes % (A) 20.8 %; MCH 29.9 pg (27.0-32.0); MCHC 31.7 d/dL (32.0-37.0); MCV 94.4 FL (80.0-97.0); Mean Platelet Volume 9.3 FL (9.5-12.2); Monocytes # (A) 0.86 X 10*3/uL (0.20-1.00); Monocytes % (A) 11.1 %; NRBC Per 100 WBC 0 X 10*3/uL (0.00-0.01); Neutrophils # (A) 4.89 X 10*3/uL (1.80-7.70); Neutrophils % (A) 63.1 %; Platelet Count 241 X 10*3/uL (140-440); RBC 4.65 X 10*6/uL (4.40-5.60); RDW 13.4 % (11.5-14.5); WBC 7.75 X 10*3/uL (4.50-10.00)
== END | disposition home or self-care (01) ==
LOC: LABWHC1 09:52
PROVIDERS: ATTEND Podiatrist
DX: I10 Essential (primary) hypertension (principal); I48.0 Paroxysmal atrial fibrillation; I73.9 Peripheral vascular disease, unspecified; E44.0 Moderate protein-calorie malnutrition; J44.9 Chronic obstructive pulmonary disease, unspecified; L97.522 Non-pressure chronic ulcer of other part of left foot with fat layer exposed; E11.42 Type 2 diabetes mellitus with diabetic polyneuropathy
CPT/HCPCS: 36415; 80053; 83036; 84134; 85025

== ENCOUNTER → 2023-05-01 | Outpatient (CLI) | payer MEDICARE ==
--- NOTE | 2023-05-01 14:27 | XR ---
EXAMINATION TYPE: XR foot complete bilateral DATE OF EXAM: 05/01/2023 1:58 PM INDICATION: Patient age:Male; 67 years old; Reason for study: L97.522 NON-PRS CHRONIC ULCER OTH PRT LEFT FOOT W; PHH. COMPARISON: Left foot radiograph 03/10/2023, right toe radiograph 04/20/2023 TECHNIQUE: Both feet were examined in AP, oblique, and lateral projections. FINDINGS: No evidence of any acute osseous pathology. No osseous erosions. Small plantar and posterior calcanea l enthesophytes bilaterally. Vascular sclerosis bilaterally. Minimal soft tissue swelling of the firs t digit of the right foot. Joints are preserved. Incidental note is made of symphalangism of the fift h distal interphalangeal joints of both feet. IMPRESSION: 1. No evidence of acute fracture. No osseous erosions. 2. Minimal soft tissue swelling of the first digit of the right foot.
== END | disposition home or self-care (01) ==
LOC: RADXRMAIN 13:39
PROVIDERS: ATTEND Podiatrist
DX: L97.522 Non-pressure chronic ulcer of other part of left foot with fat layer exposed (principal); L97.516 Non-pressure chronic ulcer of other part of right foot with bone involvement without evidence of necrosis; E11.42 Type 2 diabetes mellitus with diabetic polyneuropathy; J44.9 Chronic obstructive pulmonary disease, unspecified; I10 Essential (primary) hypertension; I48.0 Paroxysmal atrial fibrillation; I73.9 Peripheral vascular disease, unspecified; E44.0 Moderate protein-calorie malnutrition; M79.89 Other specified soft tissue disorders

== ENCOUNTER → 2023-05-05 | Outpatient (CLI) | payer MEDICARE | END | disposition home or self-care (01) | LOC: LABWHC1 12:35 | PROVIDERS: ATTEND Podiatrist | DX: Z53.9 Procedure and treatment not carried out, unspecified reason (principal) ==

== ENCOUNTER → 2023-06-23 | Outpatient (CLI) | payer MEDICARE ==
--- NOTE | 2023-06-23 12:51 | XR ---
EXAMINATION TYPE: XR foot complete RT DATE OF EXAM: 06/23/2023 CLINICAL HISTORY: pain TECHNIQUE: Frontal, lateral and oblique images of the right foot are obtained. COMPARISON: None. FINDINGS: There is no acute fracture/dislocation evident. Mild degenerative narrowing first metatars al phalangeal joint. Soft tissue ulceration great toe. No evidence for osteomyelitis at this time. Ch ronic appearing cortical irregularity at the medial base of the distal phalanx right great toe. IMPRESSION: There is no acute fracture or dislocation. ICD 10 NO FRACTURE, INITIAL EVALUATION
== END | disposition home or self-care (01) ==
LOC: RADXRMAIN 12:19
PROVIDERS: ATTEND Podiatrist
DX: M86.671 Other chronic osteomyelitis, right ankle and foot (principal)

== ENCOUNTER → 2023-06-27 | Outpatient (CLI) | payer MEDICARE ==
--- NOTE | 2023-06-27 11:43 | MM ---
Reason for Exam: Clinical finding. Baseline mammogram. Indicated Problems: Pain of both sides (Focal) for 4 Month(s). Prior Study Comparison: Patient's first Mammogram. Tissue Density: There are scattered fibroglandular densities. Findings: Analyzed By CAD. Bilateral gynecomastia identified. No suspicious masses or grouped calcifications within either breast. No architectural distortion. Overall Assessment: Benign, BI-RAD 2 Management: Clinical Management in 1 year. A clinical breast exam by your physician is recommended on an annual basis and results should be correlated with mammographic findings. This exam should not preclude additional follow-up of suspicious palpable abnormalities. Results were given to the patient verbally at the time of exam. Electronically signed and approved by: Abelardo Bradford D.O.
== END | disposition home or self-care (01) ==
LOC: RADMAMWWP 11:05
PROVIDERS: ATTEND Family Medicine
DX: N64.4 Mastodynia (principal)
CPT/HCPCS: 77066; G0279; 77062

== ENCOUNTER 2023-09-27 09:33 | Day surgery (SDC) | payer MEDICARE ==
[~2023-09-27 09:33] MED LIST changes: +FAMOTIDINE 20 MG/2 ML VIAL IV PRN; +HYDROmorphone 0.5 MG/0.5 ML SYRINGE IVP PRN; +LACTATED RINGERS 1,000 ML IV SCH; +LIDOCAINE 1% (10MG/ML) FOR IV START INTRADERMA PRN; +ONDANSETRON 4 MG/2 ML VIAL IVP ONE; +Pre Op ABX Message 1 EACH MISC MISCELLANE ONE; -SODIUM CHLORIDE 0.9% 1,000 ML in EMPTY BAG 1 BAG IV ONE; +droPERidol 5 MG/2 ML VIAL IVP ONE
[2023-09-27 10:09] LABS: Glucose,Whole Blood 72 mg/dL (70-110)
[2023-09-27] MEDS ORDERED: ONDANSETRON 4 MG/2 ML VIAL IVP ONE (10:14)
[2023-09-27 10:18] VITALS: RESP 16; TEMP 97.9
[2023-09-27 10:40] LABS: INR 1.5 (<1.2); Partial Thromboplastin Time 27.9 sec (22.0-30.0); Prothrombin Time 15.7 sec (10.0-12.5)
[2023-09-27] MEDS ORDERED: MIDAZOLAM 2 MG/2 ML VIAL ONE (10:57)
[2023-09-27] MEDS ORDERED: PROPOFOL 10 MG/ML 20 ML VIAL IV ONE (10:57)
[2023-09-27] MEDS ORDERED: KETAMINE HCL IN 0.9 % NACL 50 MG/5 ML SYRINGE ONE (10:57)
[2023-09-27] MEDS ORDERED: LIDOCAINE 1% INJ 10MG/ML (20 ML MDV) ONE (10:57)
[2023-09-27] MEDS ORDERED: fentaNYL (PF) 50 MCG/ML 2 ML AMP ONE (10:57)
[2023-09-27] MEDS ORDERED: OFLOXACIN 0.3% OPHTH DROPS 5 ML BOTTLE BOTH EARS ONE ×3 (11:02→11:18)
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
[2023-09-27 11:50] LABS: Glucose,Whole Blood 71 mg/dL (70-110)
[2023-09-27 12:44] LABS: Glucose,Whole Blood 65 mg/dL (70-110)
[2023-09-27 12:44] LABS: Glucose,Whole Blood 66 mg/dL (70-110)
[2023-09-27 12:59] LABS: Glucose,Whole Blood 116 mg/dL (70-110)
[2023-09-27 13:02] VITALS: PULSE 76
[2023-09-27 13:26] VITALS: BP 152/63
== END 2023-09-27 13:23 | disposition home or self-care (01) ==
LOC: OR 09:33
PROVIDERS: ATTEND Otolaryngology
DX: H65.93 Unspecified nonsuppurative otitis media, bilateral (principal); Z79.899 Other long term (current) drug therapy
CPT/HCPCS: 85610; 85730; 69436; J2250; J2405; J2001; J3010; J3490; J2704

== ENCOUNTER 2023-11-10 11:26 | Inpatient (IN) | payer MEDICARE ==
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
[2023-11-10 12:32] LABS: Glucose,Whole Blood 58 mg/dL (70-110)
[2023-11-10 12:50] LABS: Basophils % (A) 1 %; Eosinophils # (A) 0.3 k/uL (0-0.7); Eosinophils % (A) 4 %; HCT 44.7 % (39.0-53.0); HGB 14.6 gm/dL (13.0-17.5); Lymphocytes # (A) 1.9 k/uL (1.0-4.8); Lymphocytes % (A) 25 %; MCH 31.4 pg (25.0-35.0); MCHC 32.7 g/dL (31.0-37.0); Mean Platelet Volume 7.9; Monocytes # (A) 0.7 k/uL (0-1.0); Monocytes % (A) 8 %; Neutrophils # (A) 4.7 k/uL (1.3-7.7); Neutrophils % (A) 59 %; Platelet Count 124 k/uL (150-450); RBC 4.66 m/uL (4.30-5.90); RDW 14.9 % (11.5-15.5); WBC 7.8 k/uL (3.8-10.6)
[2023-11-10 13:06] LABS: ALT 24 U/L (4-49); AST 37 U/L (17-59); African American GFR (CKD) >90 (>60 ml/min/1.73 sqM); Albumin 3.7 g/dL (3.5-5.0); Alkaline Phosphatase 100 U/L (38-126); Anion Gap 4 mmol/L; Blood Urea Nitrogen 25 mg/dL (9-20); Calcium 8.5 mg/dL (8.4-10.2); Carbon Dioxide 30 mmol/L (22-30); Chloride 104 mmol/L (98-107); Glucose 59 mg/dL (74-99); Magnesium 1.9 mg/dL (1.6-2.3); Non-African American GFR(CKD) >90 (>60 ml/min/1.73 sqM); Partial Thromboplastin Time 42.8 sec (22.0-30.0); Potassium 4.7 mmol/L (3.5-5.1); Prothrombin Time 39.3 sec (10.0-12.5); Sodium 138 mmol/L (137-145); Total Protein 6.7 g/dL (6.3-8.2)
[2023-11-10 13:14] LABS: NT-Pro-B-Type Natriuretic Pept 237 pg/mL
[2023-11-10] MEDS: ALBUTEROL NEBULIZED 2.5 MG/3 ML INHALATION STA (13:49)
[2023-11-10] MEDS: IPRATROPIUM 0.5 MG/2.5 ML NEBU INHALATION STA (13:49)
--- NOTE | 2023-11-10 13:55 | XR ---
EXAMINATION TYPE: XR chest 2V DATE OF EXAM: 11/10/2023 COMPARISON: 12/20/2022 TECHNIQUE: PA and lateral views submitted. HISTORY: Difficulty breathing FINDINGS: A bilateral subsegmental consolidation. Underlying COPD. Heart size normal with no overt failure. Pro minent right-sided pericardial fat pad. Hypertrophic and degenerative change of the spine. Atheroscle rotic change aorta. Heart size normal and no overt failure. Osseous structures demonstrate hypertroph ic and degenerative changes of the spine. IMPRESSION: 1. COPD. Basilar atelectasis, more pronounced on the left. Correlate clinically to exclude early infi ltrate.
[2023-11-10] MEDS ORDERED: NALOXONE 0.4 MG/ML 1 ML VIAL IVP PRN (14:08)
[2023-11-10 14:17] LABS: Glucose,Whole Blood 153 mg/dL (70-110)
[2023-11-10] MEDS: IPRATROPIUM-ALBUTEROL 3 ML NEB INHALATION SCH (14:35)
[2023-11-10] MEDS: methylPREDNISolone SOD SUCCI 125 MG/2 ML VIAL IV STA (17:48)
[2023-11-10] MEDS: methylPREDNISolone SOD SUCCI 125 MG/2 ML VIAL IV SCH (18:00)
[2023-11-10] MEDS: AZITHROMYCIN 500 MG in SODIUM CHLORIDE 0.9% 250 ML IVPB STA (18:01)
[2023-11-10 20:09] LABS: Glucose,Whole Blood 292 mg/dL (70-110)
[2023-11-10] MEDS: MONTELUKAST 10 MG TAB PO SCH (20:49)
[2023-11-10] MEDS: INSULIN ASPART (NovoLOG) 100 UNIT/ML VIAL SQ SCH (20:49)
[2023-11-10] MEDS: GABAPENTIN 400 MG CAP PO SCH (20:49)
[2023-11-10] MEDS: TAMSULOSIN 0.4 MG CAP.ER.24H PO SCH (20:49)
[2023-11-10] MEDS: carvediloL 12.5 MG TAB PO SCH (20:49)
[2023-11-10] MEDS: INSULIN DETEMIR (LEVEMIR) 100 UNIT/ML SYR SQ SCH (20:49)
[2023-11-10] MEDS: ATORVASTATIN 40 MG TAB PO SCH (20:49)
[2023-11-10] MEDS: BUMETANIDE 1 MG TAB PO SCH (20:49)
[2023-11-10] MEDS: traMADol 50 MG TAB PO PRN (20:51)
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
[2023-11-11] MEDS: IPRATROPIUM-ALBUTEROL 3 ML NEB INHALATION PRN (03:41)
[2023-11-11 06:20] LABS: Glucose,Whole Blood 326 mg/dL (70-110)
[2023-11-11 08:20] LABS: African American GFR (CKD) >90 (>60 ml/min/1.73 sqM); Anion Gap 6 mmol/L; Blood Urea Nitrogen 27 mg/dL (9-20); Carbon Dioxide 29 mmol/L (22-30); Chloride 100 mmol/L (98-107); Glucose 353 mg/dL (74-99); Non-African American GFR(CKD) 89 (>60 ml/min/1.73 sqM); Potassium 4.7 mmol/L (3.5-5.1); Sodium 135 mmol/L (137-145)
[2023-11-11] MEDS: SYMBICORT 80-4.5 MCG INHALER INHALATION SCH (08:21)
[2023-11-11 08:35] LABS: Basophils % (A) 0 %; Eosinophils % (A) 0 %; HCT 43.9 % (39.0-53.0); HGB 13.9 gm/dL (13.0-17.5); Lymphocytes # (A) 0.7 k/uL (1.0-4.8); Lymphocytes % (A) 9 %; MCH 31.1 pg (25.0-35.0); MCHC 31.7 g/dL (31.0-37.0); MCV 98.2 fL (80.0-100.0); Mean Platelet Volume 8.2; Monocytes # (A) 0.2 k/uL (0-1.0); Monocytes % (A) 3 %; Neutrophils # (A) 6.8 k/uL (1.3-7.7); Neutrophils % (A) 87 %; Platelet Count 115 k/uL (150-450); RBC 4.48 m/uL (4.30-5.90); RDW 15.1 % (11.5-15.5); WBC 7.8 k/uL (3.8-10.6)
[2023-11-11] MEDS: CLOPIDOGREL 75 MG TAB PO SCH (08:43)
[2023-11-11] MEDS: ASPIRIN 81 MG PO SCH (08:43)
[2023-11-11] MEDS: SPIRONOLACTONE 25 MG TAB PO SCH (08:43)
[2023-11-11] MEDS: PIOGLITAZONE 15 MG TAB PO SCH (08:44)
[2023-11-11] MEDS: DOXYCYCLINE 100 MG CAP PO SCH (08:44)
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
[2023-11-11 12:28] LABS: Glucose,Whole Blood 379 mg/dL (70-110)
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
[2023-11-11 16:16] LABS: Glucose,Whole Blood 511 mg/dL (70-110)
[2023-11-11] MEDS: INSULN ASP PRT/INSULIN ASPART 100 UNIT/ML 10 ML VIAL SQ SCH (16:57)
[2023-11-11 17:04] LABS: INR 1.9 (<1.2); Prothrombin Time 19.5 sec (10.0-12.5)
[2023-11-11] MEDS: WARFARIN 7.5 MG TAB PO ONE (18:38)
[2023-11-11 19:54] LABS: Glucose,Whole Blood 490 mg/dL (70-110)
[2023-11-11] MEDS: FORMOTEROL FUMARATE 20 MCG/2 ML NEBU INHALATION SCH (19:55)
[2023-11-11] MEDS: BUDESONIDE 1 MG/2 ML NEBU INHALATION SCH (19:55)
[2023-11-12 05:09] LABS: Glucose,Whole Blood 451 mg/dL (70-110)
[2023-11-12 06:41] LABS: INR 1.5 (<1.2); Prothrombin Time 15.9 sec (10.0-12.5)
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
[2023-11-12 11:54] LABS: Glucose,Whole Blood 383 mg/dL (70-110)
[2023-11-12] MEDS: NICOTINE 21MG/24HR PATCH TRANSDERM SCH (11:54)
[2023-11-12] MEDS: guaiFENesin SYRUP 100MG/5ML 200 MG/10 ML CUP PO PRN (12:04)
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
--- NOTE | 2023-11-12 12:52 | P.PN ---
Subjective Progress Note Date: 11/12/23 This is Rafiq Lezama NP, I'm dictating on behalf of Dr. Guzman's H&P and A&P. Patient was interviewed and examined. Patient is a pleasant 67-year-old male who presented to the hospital with a COPD exacerbation with underlying mild heart failure. Patient reports that he is feeling much better today, and states that he is overall breathing better. The fluid in his lower extremities appears to be decreased, patient reports that the swelling has gotten better. Patient reports that he is diuresing well. He is denying chest pain, heart palpitations, dizziness, near syncope. GENERAL: Well-appearing, well-nourished and in no acute distress. NECK: Supple without JVD or thyromegaly. LUNGS: Breath sounds demonstrate expiratory wheezing bilaterally. Respiration equal and unlabored. No wheezes, rales or rhonchi. HEART: Regular rate and irregular rhythm without murmurs, rubs or gallops. S1 and S2 heard. EXTREMITIES: Normal range of motion, mild 1+ pitting edema in the right lower extremity. No clubbing or cyanosis. Peripheral pulses intact and strong. VITALS: Temp 97.8, pulse 83, respirations 17, blood pressure 133/75, O2 saturation 95% on room air TELEMETRY: Atrial fibrillation with controlled ventricular response LABS: No new labs since 11/11/2023 IMPRESSION: 1. Acute exacerbation of COPD 2. Intermittent chest tightness with history of stent placement 3. A-fib, controlled 4. Current everyday smoker PLAN: Continue meds as currently prescribed including Bumex and spironolactone. No further recommendations from a cardiology standpoint. Patient appears to be diuresing well, as his shortness of breath is significantly improved. Thank you for allowing us to participate in the care of this patient. Objective - Vital Signs Vital signs: Vital Signs Temp 97.8 F 11/12/23 08:00 Pulse 90 11/12/23 11:13 Resp 17 11/12/23 08:00 BP 133/75 11/12/23 08:00 Pulse Ox 95 11/12/23 08:00 FiO2 Intake & Output 11/11/23 11/12/23 11/12/23 18:59 06:59 18:59 Intake Total 1314 Balance 1314 Intake: Oral 1314 Other: # Voids 2 4 - Labs CBC & Chem 7: 11/11/23 07:27 11/11/23 07:27 Labs: Abnormal Lab Results - Last 24 Hours (Table) 11/11/23 11/11/23 11/11/23 Range/Units 16:15 16:15 19:52 PT 19.5 H (10.0-12.5) sec INR 1.9 H (<1.2) POC Glucose (mg/dL) 511 H 490 H (70-110) mg/dL 11/12/23 11/12/23 11/12/23 Range/Units 05:07 05:17 11:52 PT 15.9 H (10.0-12.5) sec INR 1.5 H (<1.2) POC Glucose (mg/dL) 451 H 383 H (70-110) mg/dL Microbiology - Last 24 Hours (Table) 11/10/23 17:45 Blood Culture Gram Stain - Preliminary Blood Blood Culture - Preliminary Coagulase Negative Staph 11/10/23 17:30 Blood Culture Gram Stain - Preliminary Blood Blood Culture - Preliminary Coagulase Negative Staph
[2023-11-12] MEDS: BENZONATATE 100 MG CAP PO PRN (13:26)
[2023-11-12 17:01] LABS: Glucose,Whole Blood 460 mg/dL (70-110)
[2023-11-12] MEDS: WARFARIN 7.5 MG TAB PO ONE (17:42)
[2023-11-12 20:58] LABS: Glucose,Whole Blood 345 mg/dL (70-110)
[2023-11-12] MEDS ORDERED: methylPREDNISolone SOD SUCCI 40 MG/ML 1 ML VIAL IV SCH (21:00)
[2023-11-12] MEDS: BENZOCAINE/MENTHOL LOZENG 1 EACH LOZENGE MUCOUS MEM PRN (21:03)
[2023-11-13 05:44] LABS: Glucose,Whole Blood 186 mg/dL (70-110)
[2023-11-13 05:58] LABS: INR 1.8 (<1.2); Prothrombin Time 18.2 sec (10.0-12.5)
[2023-11-13 09:07] LABS: Glucose,Whole Blood 275 mg/dL (70-110)
[2023-11-13] MEDS: predniSONE 20 MG TAB PO SCH (09:08)
--- NOTE | 2023-11-13 11:46 | CA ---
Transthoracic Echo Report Name: Dennis Rubio Age: 67 Gender: M : 1955 Exam Date: 11/13/2023 08:13 Exam Location: [facility] Ht (in): 77 Wt (lb): 275 Ordering Physician: Rafiq Lezama Attending/Referring Phys: Tile Inspector Vanesa Menchaca RCS Procedure CPT: Indications: sob Cardiac Hx: History of a-fib Technical Quality: Technically difficult study Contrast 1: Definity Total Dose (mL): 2 Contrast 2: Definity Total Dose (mL): 10 MEASUREMENTS (Male / Female) Normal Values 2D ECHO LVOT Diameter 2.5 cm Aortic Root Diameter 3.2 cm LA Volume 58.4 cm??? 18 - 58 / 22 - 52 cm??? LA Volume Index 22.2 cm???/m??? 16 - 28 cm???/m??? Ascending Aorta Diameter 3.6 cm DOPPLER AV Peak Velocity 154.4 cm/s AV Peak Gradient 9.5 mmHg AV Mean Velocity 120.6 cm/s AV Mean Gradient 6.2 mmHg AV Velocity Time Integral 31.0 cm LVOT Peak Velocity 85.0 cm/s LVOT Peak Gradient 2.9 mmHg LVOT Velocity Time Integral 18.2 cm LVOT Stroke Volume 87.9 cm??? LVOT Stroke Volume Index 34.3 ml/m??? LVOT Cardiac Index 2636.4 cm???/min???m??? AV Area Cont Eq vti 2.8 cm??? AV Area Cont Eq pk 2.7 cm??? PV Peak Velocity 67.8 cm/s PV Peak Gradient 1.8 mmHg FINDINGS Left Ventricle Left ventricular ejection fraction is estimated at 50-55 %. Left ventricular cavity size normal. No obvious regional wall motion abnormalities. Right Ventricle Right ventricular dilatation. Unable to determine right ventricular systolic pressure. Right Atrium Mild right atrial dilatation. Left Atrium Mild left atrial dilatation. Mitral Valve Structurally normal mitral valve. No mitral stenosis, regurgitation or prolapse. Aortic Valve Trileaflet aortic valve. No aortic valve stenosis or regurgitation. Tricuspid Valve Structurally normal tricuspid valve. No tricuspid stenosis, regurgitation or prolapse. Pulmonic Valve Pulmonic valve not well visualized. No pulmonic stenosis. No pulmonic regurgitation. Pericardium No pericardial effusion. Aorta Normal size aortic root and proximal ascending aorta. CONCLUSIONS Technically suboptimal study LV systolic function is normal Previewed by: Dr. Francois Danielson MD (Electronically Signed) Final Date: 13 November 2023 11:45
[2023-11-13 11:48] LABS: Glucose,Whole Blood 189 mg/dL (70-110)
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
[2023-11-13 15:30] LABS: Glucose,Whole Blood 129 mg/dL (70-110)
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
[2023-11-13 16:08] LABS: Glucose,Whole Blood 129 mg/dL (70-110)
[2023-11-13 16:31] LABS: ABG Base Excess 7.9 mmol/L; ABG HCO3 31 mmol/L (21-25); ABG Oxygen Saturation 93.2 % (94-97); ABG PCO2 39 mmHg (35-45); ABG PH 7.51 (7.35-7.45); ABG PO2 61 mmHg (83-108); ABG TCO2 32 mmol/L (19-24); Allen Test Performed? Yes
[2023-11-13] MEDS: FUROSEMIDE 10 MG/ML 4 ML VIAL IV STA (16:40)
[2023-11-13 16:58] LABS: ALT 35 U/L (4-49); AST 32 U/L (17-59); African American GFR (CKD) >90 (>60 ml/min/1.73 sqM); Albumin 4.2 g/dL (3.5-5.0); Alkaline Phosphatase 84 U/L (38-126); Anion Gap 7 mmol/L; Blood Urea Nitrogen 40 mg/dL (9-20); Calcium 8.6 mg/dL (8.4-10.2); Carbon Dioxide 29 mmol/L (22-30); Chloride 101 mmol/L (98-107); Glucose 132 mg/dL (74-99); Non-African American GFR(CKD) 84 (>60 ml/min/1.73 sqM); Potassium 4.4 mmol/L (3.5-5.1); Sodium 137 mmol/L (137-145); Total Bilirubin 1.2 mg/dL (0.2-1.3)
[2023-11-13 17:00] LABS: Albumin/Globulin Ratio 1.4; Total Protein 7.2 g/dL (6.3-8.2)
[2023-11-13 17:08] LABS: HCT 43.9 % (39.0-53.0); HGB 14.3 gm/dL (13.0-17.5); MCHC 32.6 g/dL (31.0-37.0); Mean Platelet Volume 8.4; Platelet Count 130 k/uL (150-450); RBC 4.62 m/uL (4.30-5.90); RDW 15.3 % (11.5-15.5); WBC 11.6 k/uL (3.8-10.6)
[2023-11-13 17:36] LABS: Lactic Acid, Venous 2.4 mmol/L (0.7-2.0)
[2023-11-13 17:37] LABS: Band Neutrophils % 7 %; Eosinophils # (M) 0.12 k/uL (0-0.7); Lymphocytes # (M) 0.58 k/uL (1.0-4.8); Metamyelocytes # (M) 0.12 k/uL (0); Metamyelocytes % 1 %; Monocytes # (M) 0.93 k/uL (0-1.0); Neutrophils % (M) 80 %; Nucleated Red Blood Cells 0 /100 WBC (0-0); Total Cells Counted 200; Toxic Vacuolation Present
[2023-11-13 17:38] LABS: Large Platelets Present; Toxic Granulation Present
[2023-11-13] MEDS: WARFARIN 7.5 MG TAB PO ONE (18:38)
[2023-11-13 21:34] LABS: Glucose,Whole Blood 112 mg/dL (70-110)
[2023-11-14 04:59] VITALS: RESP 20
[2023-11-14 06:00] LABS: Glucose,Whole Blood 222 mg/dL (70-110)
[2023-11-14 11:18] LABS: INR 1.9 (<1.2); Prothrombin Time 19.2 sec (10.0-12.5)
[2023-11-14 11:42] LABS: Glucose,Whole Blood 110 mg/dL (70-110)
[2023-11-14] MEDS: guaiFENesin 600 MG TABLET.ER PO SCH (12:40)
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
[2023-11-14 16:27] LABS: Glucose,Whole Blood 330 mg/dL (70-110)
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
[2023-11-14] MEDS: WARFARIN 7.5 MG TAB PO ONE (17:44)
--- NOTE | 2023-11-14 17:59 | CT ---
EXAMINATION TYPE: CT brain wo con CT DLP: 1134.4 mGycm, Automated exposure control for dose reduction was used. DATE OF EXAM: 11/14/2023 5:24 PM COMPARISON: None CLINICAL INDICATION:Male, 67 years old with history of confusion, confusion TECHNIQUE: Brain: Axial CT images of the brain were obtained with coronal and sagittal reformats created and rev iewed. Contrast used: None. Oral contrast used: None. FINDINGS: Brain: Extra-axial spaces: No abnormal extra-axial fluid collections. Ventricular system: Dilatation in proportion to cerebral atrophy. Cerebral parenchyma: Cerebral atrophy. No acute intraparenchymal hemorrhage or mass effect. The do -white junction is well differentiated. Scattered hypoattenuating areas are seen within the white mat ter. Cerebellum: Unremarkable. Mass effect: No evidence of midline shift. Intracranial vasculature: Atherosclerotic calcifications of the intracranial vessels. Soft tissues: Normal. Calvarium/osseous structures: No depressed skull fracture. Paranasal sinuses and mastoid air cells: Mild scattered paranasal sinus disease. Visualized orbits: Bilateral aphakia IMPRESSION: No acute intracranial process.
[2023-11-14 19:43] LABS: Glucose,Whole Blood 291 mg/dL (70-110)
[2023-11-15 05:58] LABS: Glucose,Whole Blood 92 mg/dL (70-110)
[2023-11-15 07:04] LABS: Glucose,Whole Blood 122 mg/dL (70-110)
[2023-11-15 07:38] LABS: Vitamin B12 >1800.0 pg/mL (200.0-944.0)
--- NOTE | 2023-11-15 08:14 | XR ---
EXAMINATION TYPE: XR chest 1V DATE OF EXAM: 11/15/2023 COMPARISON: 11/10/2023 INDICATION: Short of breath COPD TECHNIQUE: Single frontal view of the chest is obtained. FINDINGS: The heart size is normal. The pulmonary vasculature is normal. Linear opacities at the lung bases compatible with atelectasis. Follow-up is recommended. Very subtle right pleural effusion may be present. Lungs otherwise appear clear. IMPRESSION: 1. Bibasilar platelike atelectasis. Follow-up recommended.
[2023-11-15 09:04] LABS: Glucose,Whole Blood 206 mg/dL (70-110)
[2023-11-15 11:03] VITALS: TEMP 97.9
[2023-11-15 11:54] LABS: Glucose,Whole Blood 83 mg/dL (70-110)
[2023-11-15 12:02] LABS: INR 1.6 (<1.2); Prothrombin Time 16.7 sec (10.0-12.5)
[2023-11-15 12:40] VITALS: BP 115/73; PULSE 98
[2023-11-15 13:04] LABS: Glucose,Whole Blood 165 mg/dL (70-110)
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
[2023-11-15] MEDS ORDERED: WARFARIN 7.5 MG TAB PO ONE (18:00)
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
== END 2023-11-15 14:02 | disposition home or self-care (01) | DRG 190 ==
LOC: EC 11:26 → 4SSUR 14:08 → 3SCARD 11-13 20:37
PROVIDERS: ADMIT Family Medicine; ATTEND Family Medicine
DX: J44.1 Chronic obstructive pulmonary disease with (acute) exacerbation (principal); G93.41 Metabolic encephalopathy; J96.21 Acute and chronic respiratory failure with hypoxia; J98.11 Atelectasis; G93.1 Anoxic brain damage, not elsewhere classified; I48.20 Chronic atrial fibrillation, unspecified; T45.515A Adverse effect of anticoagulants, initial encounter; T38.0X5A Adverse effect of glucocorticoids and synthetic analogues, initial encounter; R79.1 Abnormal coagulation profile; M19.90 Unspecified osteoarthritis, unspecified site; I87.8 Other specified disorders of veins; L97.519 Non-pressure chronic ulcer of other part of right foot with unspecified severity; I50.9 Heart failure, unspecified; I25.10 Atherosclerotic heart disease of native coronary artery without angina pectoris; I11.0 Hypertensive heart disease with heart failure; F17.210 Nicotine dependence, cigarettes, uncomplicated; E78.5 Hyperlipidemia, unspecified; E11.649 Type 2 diabetes mellitus with hypoglycemia without coma; E11.65 Type 2 diabetes mellitus with hyperglycemia; E11.621 Type 2 diabetes mellitus with foot ulcer; E11.51 Type 2 diabetes mellitus with diabetic peripheral angiopathy without gangrene; E03.9 Hypothyroidism, unspecified; B18.2 Chronic viral hepatitis C; Z95.5 Presence of coronary angioplasty implant and graft; Z87.828 Personal history of other (healed) physical injury and trauma; Z79.899 Other long term (current) drug therapy; Z79.84 Long term (current) use of oral hypoglycemic drugs; Z79.82 Long term (current) use of aspirin; Z71.6 Tobacco abuse counseling; Z79.52 Long term (current) use of systemic steroids; Z79.4 Long term (current) use of insulin; Z79.02 Long term (current) use of antithrombotics/antiplatelets; Z79.01 Long term (current) use of anticoagulants
CPT/HCPCS: 36415; 36600; 70450; 71045; 71046; 80048; 80053; 82140; 82607; 82805; 83036; 83605; 83735; 83880; 84145; 84443; 84484; 85025; 85610; 85730; 86140; 87040; 87070; 87077; 87186; 87205; 93005; 93306; 94640; 94760; 96374; 96375; 99291

== ENCOUNTER 2023-11-17 19:43 | Inpatient (IN) | payer MEDICARE ==
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
--- NOTE | 2023-11-17 21:20 | XR ---
EXAMINATION TYPE: XR chest 2V DATE OF EXAM: 11/17/2023 9:06 PM CLINICAL INDICATION:Male, 67 years old with history of difficulty breathing; [facility] COMPARISON: Chest radiographs from 11/15/2023. TECHNIQUE: XR chest 2V Frontal and lateral views of the chest. FINDINGS: Lungs/Pleura: Increased airspace opacities in the right lung base. There is no evidence of pleural ef fusion, focal consolidation, or pneumothorax. Pulmonary vascularity: Unremarkable. Heart/mediastinum: Cardiomediastinal silhouette is unremarkable. Musculoskeletal: No acute osseous pathology. IMPRESSION: Right basilar airspace opacities. Correlate for pneumonia.
[2023-11-17 21:26] LABS: Glucose,Whole Blood 192 mg/dL (70-110)
[2023-11-17 23:05] LABS: Glucose,Whole Blood 99 mg/dL (70-110)
[2023-11-17 23:14] LABS: Appearance,Urine Clear (Clear); Bilirubin,Urine Negative (Negative); Blood,Urine Negative (Negative); Color,Urine Colorless; Glucose,Urine (UA) Negative (Negative); Ketones,Urine Negative (Negative); Leukocyte Esterase,Urine Negative (Negative); Nitrite,Urine Negative (Negative); Protein,Urine Negative (Negative); Specific Gravity,Urine 1.006 (1.001-1.035); Urobilinogen,Urine <2.0 mg/dL (<2.0)
[2023-11-17 23:17] LABS: HCT 42.6 % (39.0-53.0); HGB 14.9 gm/dL (13.0-17.5); MCH 32.8 pg (25.0-35.0); MCHC 34.9 g/dL (31.0-37.0); Mean Platelet Volume 8.4; Platelet Count 203 k/uL (150-450); RBC 4.54 m/uL (4.30-5.90); RDW 14.8 % (11.5-15.5); WBC 12.9 k/uL (3.8-10.6)
[2023-11-17 23:23] LABS: ALT 33 U/L (4-49); AST 32 U/L (17-59); African American GFR (CKD) 86 (>60 ml/min/1.73 sqM); Albumin 3.9 g/dL (3.5-5.0); Alkaline Phosphatase 133 U/L (38-126); Anion Gap 8 mmol/L; Blood Urea Nitrogen 38 mg/dL (9-20); Carbon Dioxide 29 mmol/L (22-30); Chloride 97 mmol/L (98-107); Glucose 103 mg/dL (74-99); INR 1.9 (<1.2); Magnesium 1.6 mg/dL (1.6-2.3); Non-African American GFR(CKD) 75 (>60 ml/min/1.73 sqM); Partial Thromboplastin Time 25.6 sec (22.0-30.0); Prothrombin Time 19.3 sec (10.0-12.5); Sodium 134 mmol/L (137-145); Total Bilirubin 1.2 mg/dL (0.2-1.3); Total Protein 7.1 g/dL (6.3-8.2)
[2023-11-17] MEDS: LORazepam 2 MG/ML INJ IV STA (23:24)
[2023-11-17] MEDS: SODIUM CHLORIDE 0.9% 1,000 ML IV STA (23:26)
[2023-11-17 23:43] LABS: Band Neutrophils % 40 %; Lymphocytes # (M) 1.03 k/uL (1.0-4.8); Monocytes # (M) 1.16 k/uL (0-1.0); Neutrophils % (M) 43 %; Nucleated Red Blood Cells 0 /100 WBC (0-0); Total Cells Counted 200
--- NOTE | 2023-11-18 00:08 | CT ---
EXAM: CT Head Without Intravenous Contrast CLINICAL HISTORY: ITS.REASON CT Reason: fall TECHNIQUE: Axial computed tomography images of the head/brain without intravenous contrast. CTDI is 45.2 mGy and DLP is 1140 mGy-cm. This CT exam was performed using one or more of the following dose reduction techniques: automated exposure control, adjustment of the mA and/or kV according to patient size, and/or use of iterative reconstruction technique. COMPARISON: No relevant prior studies available. FINDINGS: Brain: No hemorrhage, extra-axial fluid collection, mass effect, or edema. Ventricles: Unremarkable. Bones/joints: Unremarkable. No fracture. Soft tissues: Unremarkable. Sinuses: No acute sinusitis. Mastoid air cells: Unremarkable as visualized. IMPRESSION: 1. No acute intracranial abnormality. EXAM: CT Cervical Spine Without Intravenous Contrast CLINICAL HISTORY: ITS.REASON CT Reason: fall TECHNIQUE: Axial computed tomography images of the cervical spine without intravenous contrast. CTDI is 42.4 mGy and DLP is 1141.4 mGy-cm. This CT exam was performed using one or more of the following dose reduction techniques: automated exposure control, adjustment of the mA and/or kV according to patient size, and/or use of iterative reconstruction technique. COMPARISON: No relevant prior studies available. FINDINGS: Vertebrae: No acute fracture in the cervical spine. Multilevel degenerative disc disease with uncovertebral and facet hypertrophy. Other bones/joints: Fracture of the proximal clavicle on the right. Soft tissues: Unremarkable. IMPRESSION: 1. No acute fracture in the cervical spine. 2. Fracture of the proximal clavicle on the right.
--- NOTE | 2023-11-18 00:22 | CT ---
EXAM: CT Abdomen and Pelvis With Intravenous Contrast CLINICAL HISTORY: ITS.REASON CT Reason: left abd pain TECHNIQUE: Axial computed tomography images of the abdomen and pelvis with intravenous contrast. CTDI is 42.7 mGy and DLP is 2136 mGy-cm. This CT exam was performed using one or more of the following dose reduction techniques: automated exposure control, adjustment of the mA and/or kV according to patient size, and/or use of iterative reconstruction technique. COMPARISON: No relevant prior studies available. FINDINGS: Lung bases: Airspace opacities at the right lung base favored infectious. ABDOMEN: Liver: Cirrhotic liver. Gallbladder and bile ducts: Cholelithiasis without cholecystitis. Pancreas: Unremarkable. Spleen: Spleen measures 15 cm. Adrenals: Unremarkable. Kidneys and ureters: Unremarkable. No obstructing stones. No hydronephrosis. Stomach and bowel: Unremarkable. PELVIS: Appendix: No findings to suggest acute appendicitis. Bladder: Unremarkable. Reproductive: Unremarkable as visualized. ABDOMEN and PELVIS: Intraperitoneal space: Unremarkable. No free air. No significant fluid collection. Bones/joints: No acute fracture. Soft tissues: Unremarkable. Vasculature: Unremarkable. Lymph nodes: Unremarkable. IMPRESSION: 1. Airspace opacities at the right lung base favored infectious. 2. Cirrhotic liver. 3. Cholelithiasis without cholecystitis. 4. Mild splenomegaly.
[2023-11-18] MEDS: METOPROLOL TARTRATE 5 MG/5 ML VIAL IVP STA ×2 (01:13→06:15)
[2023-11-18] MEDS ORDERED: PNEUMONIA PROTOCOL UTILIZED 1 EACH MISC PO PRN (02:13)
[2023-11-18] MEDS: AZITHROMYCIN 500 MG in SODIUM CHLORIDE 0.9% 250 ML IVPB STA (02:47)
[2023-11-18] MEDS: LORazepam 2 MG/ML INJ IV STA (04:08)
--- NOTE | 2023-11-18 06:02 | XR ---
EXAMINATION TYPE: XR chest 1V portable DATE OF EXAM: 11/18/2023 CLINICAL HISTORY: Difficulty breathing progress study. TECHNIQUE: 2 portable frontal views of the chest are obtained. COMPARISON: Chest x-ray from one day earlier and older studies. FINDINGS: Worsening right basilar opacity. Left lung remains clear. Cardiac silhouette size is stabl e and within normal limits. Osseous structures are intact. IMPRESSION: Worsening right basilar acute infiltrate and/or atelectasis.
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
[2023-11-18] MEDS ORDERED: BUDESONIDE 1 MG/2 ML NEBU INHALATION SCH (08:00)
[2023-11-18] MEDS ORDERED: IPRATROPIUM 0.5 MG/2.5 ML NEBU INHALATION SCH (08:00)
[2023-11-18] MEDS: IPRATROPIUM-ALBUTEROL 3 ML NEB INHALATION SCH (08:13)
[2023-11-18] MEDS: SYMBICORT 80-4.5 MCG INHALER INHALATION SCH (08:18)
[2023-11-18] MEDS ORDERED: FLUTICASONE 50MCG/SPRAY NASAL 16GM EA NOSTRIL PRN (09:00)
--- NOTE | 2023-11-18 09:12 | US ---
EXAMINATION TYPE: US liver DATE OF EXAM: 11/18/2023 COMPARISON: CT abdomen and pelvis one day earlier CLINICAL INDICATION: Male, 67 years old with history of tenderness; Poor historian. CT showed gallst ones. TECHNIQUE: Multiple sonographic images of the right upper quadrant are obtained. FINDINGS: EXAM MEASUREMENTS: Liver Length: 18.1 cm Gallbladder Wall: 0.2 cm CBD: 0.8 cm Right Kidney: 10.8 x 4.5 x 5.4 cm Pancreas: Echogenic. Main pancreatic duct = 1.7 mm Liver: There appears coarse and slightly nodular. Gallbladder: Echogenic foci with shadowing, largest - 2.2 cm. Unable to obtain LLD images. Evidence for sonographic Kim's sign: Neg CBD: wnl Right Kidney: No hydronephrosis or masses seen Visualized pancreas within normal limits. Visualized liver is heterogeneous. No adjacent ascites. Int raluminal gallstones are seen. No abnormal wall thickening or adjacent fluid. No right-sided hydronep hrosis. IMPRESSION: Heterogeneous appearance to the liver corresponds to suspected cirrhosis seen better on r ecent CT. Gallstones are present without secondary ultrasound evidence for acute cholecystitis.
[2023-11-18] MEDS: CEFEPIME 2 GM in SODIUM CHLORIDE 0.9% 100 ML IVPB SCH (09:26)
[2023-11-18 09:48] LABS: Glucose,Whole Blood 147 mg/dL (70-110)
[2023-11-18 10:07] LABS: INR 2.1 (<1.2); Prothrombin Time 21.1 sec (10.0-12.5)
[2023-11-18] MEDS ORDERED: VANCOMYCIN IV PER PHARMACY 1 EACH MISC MISCELLANE PRN (11:17)
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
[2023-11-18] MEDS: traMADol 50 MG TAB PO PRN (13:06)
[2023-11-18] MEDS: carvediloL 12.5 MG TAB PO SCH (13:06)
[2023-11-18] MEDS: CLOPIDOGREL 75 MG TAB PO SCH (13:07)
[2023-11-18] MEDS: TAMSULOSIN 0.4 MG CAP.ER.24H PO SCH (13:07)
[2023-11-18] MEDS: ASPIRIN 81 MG PO SCH (13:07)
[2023-11-18] MEDS: SPIRONOLACTONE 25 MG TAB PO SCH (13:07)
[2023-11-18] MEDS: BUMETANIDE 0.5 MG TABLET PO SCH (13:08)
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
[2023-11-18] MEDS: VANCOMYCIN 1,750 MG in SODIUM CHLORIDE 0.9% 500 ML 500 ML IVPB SCH (13:44)
[2023-11-18] MEDS: WARFARIN 7.5 MG TAB PO SCH (17:15)
[2023-11-18] MEDS: ATORVASTATIN 40 MG TAB PO SCH (21:10)
[2023-11-18 22:04] LABS: Glucose,Whole Blood 211 mg/dL (70-110)
[2023-11-19] MEDS: BENZONATATE 100 MG CAP PO PRN (01:26)
[2023-11-19] MEDS: ALBUTEROL NEBULIZED 2.5 MG/3 ML INHALATION PRN (01:39)
[2023-11-19 06:29] LABS: Glucose,Whole Blood 361 mg/dL (70-110)
[2023-11-19 07:53] LABS: Basophils % (A) 0 %; Eosinophils # (A) 0.1 k/uL (0-0.7); Eosinophils % (A) 0 %; HCT 37.1 % (39.0-53.0); Lymphocytes # (A) 1.1 k/uL (1.0-4.8); Lymphocytes % (A) 6 %; MCH 31.8 pg (25.0-35.0); MCHC 32.3 g/dL (31.0-37.0); MCV 98.3 fL (80.0-100.0); Mean Platelet Volume 8.4; Monocytes # (A) 1.1 k/uL (0-1.0); Monocytes % (A) 6 %; Neutrophils # (A) 15.3 k/uL (1.3-7.7); Neutrophils % (A) 86 %; Platelet Count 169 k/uL (150-450); RBC 3.78 m/uL (4.30-5.90); RDW 14.8 % (11.5-15.5); WBC 17.7 k/uL (3.8-10.6)
[2023-11-19 07:57] LABS: INR 2.3 (<1.2); Prothrombin Time 22.6 sec (10.0-12.5)
[2023-11-19 08:00] LABS: African American GFR (CKD) >90 (>60 ml/min/1.73 sqM); Anion Gap 6 mmol/L; Blood Urea Nitrogen 30 mg/dL (9-20); Calcium 7.5 mg/dL (8.4-10.2); Carbon Dioxide 27 mmol/L (22-30); Chloride 99 mmol/L (98-107); Glucose 329 mg/dL (74-99); Non-African American GFR(CKD) 90 (>60 ml/min/1.73 sqM); Potassium 3.6 mmol/L (3.5-5.1); Sodium 132 mmol/L (137-145)
[2023-11-19] MEDS: AZITHROMYCIN 500 MG TAB PO SCH (08:00)
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
[2023-11-19 12:13] LABS: Glucose,Whole Blood 345 mg/dL (70-110)
[2023-11-19] MEDS: PIOGLITAZONE 15 MG TAB PO SCH (13:11)
[2023-11-19] MEDS: NICOTINE 21MG/24HR PATCH TRANSDERM SCH (13:11)
[2023-11-19] MEDS: INSULIN DETEMIR (LEVEMIR) 100 UNIT/ML SYR SQ SCH (13:11)
[2023-11-19 16:59] LABS: Glucose,Whole Blood 309 mg/dL (70-110)
[2023-11-19] MEDS: GABAPENTIN 400 MG CAP PO SCH (17:34)
[2023-11-19] MEDS: WARFARIN 3 MG TAB PO SCH (17:35)
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
[2023-11-19] MEDS: MONTELUKAST 10 MG TAB PO SCH (20:15)
[2023-11-19 21:04] LABS: Glucose,Whole Blood 284 mg/dL (70-110)
[2023-11-19] MEDS: FAMOTIDINE 20 MG/2 ML VIAL IV SCH (22:14)
[2023-11-20 05:50] LABS: Glucose,Whole Blood 222 mg/dL (70-110)
[2023-11-20 07:48] LABS: INR 2.6 (<1.2); Prothrombin Time 25.8 sec (10.0-12.5)
[2023-11-20 07:59] LABS: African American GFR (CKD) >90 (>60 ml/min/1.73 sqM); Non-African American GFR(CKD) >90 (>60 ml/min/1.73 sqM)
[2023-11-20] MEDS: guaiFENesin SYRUP 100MG/5ML 200 MG/10 ML CUP PO PRN (11:36)
[2023-11-20 12:19] LABS: Glucose,Whole Blood 295 mg/dL (70-110)
[2023-11-20] MEDS: VANCOMYCIN TROUGH DUE 1 EACH MISC MISCELLANE ONE (13:19)
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
--- NOTE | 2023-11-20 17:43 | MR ---
EXAMINATION TYPE: MR brain wo con DATE OF EXAM: 11/20/2023 4:59 PM CLINICAL INDICATION:Male, 67 years old with history of confusion, Unknown Etiology COMPARISON: 11/17/2023. TECHNIQUE: Multi planar, multi sequence imaging was performed through the brain including: T1, T2, In version recovery, Diffusion weighted imaging, and gradient echo imaging. No gadolinium was given. FINDINGS: The do-white junctions, ventricular system, basal cisterns appear unremarkable. Scattered foci of high T2 signal intensity are seen within the periventricular white matter. Midline structures show n o abnormality. Diffusion-weighted imaging shows no evidence of restricted diffusion. The susceptibili ty weighted images do not reveal any evidence for micro-hemorrhage. The bone marrow signal is within normal limits. Paranasal sinuses and mastoid air cells: No significant paranasal sinus disease. Bilateral high T2 si gnal in the mastoid air cells Visualized orbits: Orbital contents are intact. IMPRESSION: 1. No evidence of intracranial mass or acute/subacute infarct. 2. Nonspecific white matter changes, likely secondary to small vessel ischemic disease. 3. Trace bilateral mastoid air cell effusions.
[2023-11-20 17:56] LABS: Glucose,Whole Blood 382 mg/dL (70-110)
[2023-11-20] MEDS ORDERED: DEXTROSE 50% SYRINGE 50 ML IVP PRN ×2 (18:13)
[2023-11-20 19:59] LABS: Glucose,Whole Blood 330 mg/dL (70-110)
[2023-11-20] MEDS: INSULIN ASPART (NovoLOG) 100 UNIT/ML VIAL SQ SCH (20:47)
[2023-11-20] MEDS: INSULIN DETEMIR (LEVEMIR) 100 UNIT/ML SYR SQ SCH (20:47)
[2023-11-21] MEDS: ACETAMINOPHEN TAB 500 MG TAB PO PRN (05:15)
--- NOTE | 2023-11-21 05:41 | EEG ---
ELECTROENCEPHALOGRAM REPORT PREAMBLE: This is a 67-year-old male who has been sick for about 5 weeks with pneumonia and came to the hospital with agitation. When he was in the waiting room, he fell in the bathroom. CURRENT MEDICATIONS: 1. Ventolin. 2. Albuterol. 3. Aspirin. 4. Lipitor. 5. Symbicort. 6. Coreg. 7. Cefepime. 8. Plavix. 9. Pepcid. 10.Flonase. 11.Neurontin. 12.Levemir. 13.Coumadin. 14.Vancomycin. 15.Singulair. EEG FINDINGS: This is a 21-channel digital EEG recorded with video component, utilizing 10/20 international system with referential and bipolar montages. Background consists of well-developed, moderately well-regulated, mixed frequencies of 8 to 9 hertz alpha, intermixed with some theta, and occasional delta activity seen in bihemispheric region. Background seems to be slightly reactive to eye opening or closing. Photic driving response was not clearly seen. Drowsiness was seen with appearance of bilaterally symmetric theta frequency rhythm. Some stage 2 sleep was seen with presence of sleep spindles. No focal or generalized epileptiform activity was seen. EKG channel showed no obvious arrhythmia. IMPRESSION: This is an abnormal EEG due to intermittent background slowing, suggestive of mild encephalopathy. No focal, lateralized, or epileptiform activity was seen. MMODL / IJN: [id number] / MTDD
[2023-11-21 06:12] LABS: Glucose,Whole Blood 253 mg/dL (70-110)
[2023-11-21 09:04] LABS: INR 3.9 (<1.2)
[2023-11-21 09:08] LABS: Potassium 3.3 mmol/L (3.5-5.1)
[2023-11-21 09:10] LABS: African American GFR (CKD) >90 (>60 ml/min/1.73 sqM); Anion Gap 1 mmol/L; Blood Urea Nitrogen 22 mg/dL (9-20); Calcium 7.4 mg/dL (8.4-10.2); Carbon Dioxide 30 mmol/L (22-30); Chloride 101 mmol/L (98-107); Glucose 240 mg/dL (74-99); Non-African American GFR(CKD) 84 (>60 ml/min/1.73 sqM); Sodium 132 mmol/L (137-145)
[2023-11-21] MEDS ORDERED: ALBUTEROL NEBULIZED 2.5 MG/3 ML INHALATION PRN (10:11)
[2023-11-21 11:30] LABS: Basophils # (A) 0.08 X 10*3/uL (0.00-0.10); Basophils % (A) 0.7 %; Eosinophils # (A) 0.07 X 10*3/uL (0.04-0.35); Eosinophils % (A) 0.6 %; HCT 35.7 % (39.6-50.0); HGB 11.8 g/dL (13.0-17.0); Lymphocytes # (A) 0.93 X 10*3/uL (0.90-5.00); Lymphocytes % (A) 7.9 %; MCH 31.4 pg (27.0-32.0); MCHC 33.1 g/dL (32.0-37.0); MCV 94.9 FL (80.0-97.0); Mean Platelet Volume 9.9 FL (9.5-12.2); Monocytes # (A) 1.24 X 10*3/uL (0.20-1.00); Monocytes % (A) 10.6 %; NRBC Per 100 WBC 0 X 10*3/uL (0.00-0.01); Neutrophils % (A) 78.6 %; Platelet Count 158 X 10*3/uL (140-440); RBC 3.76 X 10*6/uL (4.40-5.60); RDW 14.7 % (11.5-14.5); WBC 11.71 X 10*3/uL (4.50-10.00)
[2023-11-21 11:34] LABS: Glucose,Whole Blood 236 mg/dL (70-110)
[2023-11-21] MEDS: IPRATROPIUM-ALBUTEROL 3 ML NEB INHALATION SCH (12:15)
[2023-11-21] MEDS: SIMETHICONE 80 MG CHEWABLE PO SCH (12:35)
--- NOTE | 2023-11-21 14:16 | XR ---
EXAMINATION TYPE: XR clavicle RT DATE OF EXAM: 11/21/2023 CLINICAL HISTORY: pain TECHNIQUE: 2 views of the right clavicle are submitted. COMPARISON: None FINDINGS: There is no acute fracture/dislocation evident. The acromioclavicular and glenohumeral juan c int spaces appear within normal limits. The visualized ribs are intact and unremarkable. IMPRESSION: 1. There is no acute fracture or dislocation. ICD 10 NO FRACTURE, INITIAL EVALUATION
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
[2023-11-21] MEDS: methylPREDNISolone SOD SUCCI 40 MG/ML 1 ML VIAL IV SCH (16:13)
[2023-11-21 16:22] LABS: Glucose,Whole Blood 252 mg/dL (70-110)
[2023-11-21] MEDS: WARFARIN 0.5 MG TAB PO ONE (17:12)
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
[2023-11-21] MEDS ORDERED: SYMBICORT 80-4.5 MCG INHALER INHALATION SCH (20:00)
[2023-11-21 20:28] LABS: Glucose,Whole Blood 461 mg/dL (70-110)
[2023-11-21] MEDS: SYMBICORT 160-4.5 MCG INHALER INHALATION SCH (20:45)
[2023-11-21] MEDS ORDERED: INSULIN DETEMIR (LEVEMIR) 100 UNIT/ML SYR SQ SCH (21:00)
[2023-11-21] MEDS: POTASSIUM CHLORIDE ER 20 MEQ TAB.ER PO STA (21:52)
[2023-11-21] MEDS: INSULIN ASPART (NovoLOG) 100 UNIT/ML VIAL SQ ONE (21:53)
[2023-11-21] MEDS: INSULIN DETEMIR (LEVEMIR) 100 UNIT/ML SYR SQ SCH (21:53)
[2023-11-22 05:57] LABS: Glucose,Whole Blood 504 mg/dL (70-110)
[2023-11-22] MEDS: INSULIN ASPART (NovoLOG) 100 UNIT/ML VIAL SQ ONE ×2 (06:59→13:13)
[2023-11-22 10:36] LABS: Glucose,Whole Blood >600 mg/dL (70-110)
[2023-11-22 11:44] LABS: Appearance,Urine Clear (Clear); Bilirubin,Urine Negative (Negative); Blood,Urine Negative (Negative); Color,Urine Colorless; Glucose,Urine (UA) 4+ (Negative); Ketones,Urine Negative (Negative); Leukocyte Esterase,Urine Negative (Negative); Nitrite,Urine Negative (Negative); PH, Urine 5.5 (5.0-8.0); Protein,Urine Negative (Negative); Specific Gravity,Urine 1.014 (1.001-1.035); Urobilinogen,Urine <2.0 mg/dL (<2.0)
[2023-11-22 11:46] LABS: Glucose,Whole Blood >600 mg/dL (70-110)
[2023-11-22 11:56] LABS: INR 3.4 (<1.2); Prothrombin Time 33.5 sec (10.0-12.5)
[2023-11-22 12:03] LABS: African American GFR (CKD) >90 (>60 ml/min/1.73 sqM); Anion Gap 9 mmol/L; Blood Urea Nitrogen 33 mg/dL (9-20); Calcium 7.8 mg/dL (8.4-10.2); Carbon Dioxide 22 mmol/L (22-30); Chloride 99 mmol/L (98-107); Non-African American GFR(CKD) >90 (>60 ml/min/1.73 sqM); Potassium 4.5 mmol/L (3.5-5.1); Sodium 130 mmol/L (137-145)
[2023-11-22] MEDS: VANCOMYCIN TROUGH DUE 1 EACH MISC MISCELLANE ONE (12:15)
[2023-11-22 12:17] LABS: Glucose 638 mg/dL (74-99)
[2023-11-22] MEDS: INSULIN DETEMIR (LEVEMIR) 100 UNIT/ML SYR SQ ONE (13:14)
[2023-11-22] MEDS: INSULIN ASPART (NovoLOG) 100 UNIT/ML VIAL SQ SCH (13:14)
[2023-11-22 13:56] VITALS: BMI 29.9
[2023-11-22 14:08] LABS: Glucose,Whole Blood 558 mg/dL (70-110)
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
[2023-11-22 15:26] LABS: Glucose,Whole Blood 366 mg/dL (70-110)
[2023-11-22 17:04] LABS: Glucose,Whole Blood 285 mg/dL (70-110)
[2023-11-22] MEDS: WARFARIN 0.5 MG TAB PO ONE (17:13)
--- NOTE | 2023-11-22 19:26 | P.PN ---
Subjective Progress Note Date: 11/22/23 Patient initially seen by Dr. Adriano Goodson. Please refer to his note for details. Patient is a 67-year-old male with altered mental status, that is recurrent. Seems like hypoxic. Some of the workup during his hospital visit consisted of: Patient is afebrile. White blood cells 12.9 thousand minimally neutrophilic The plasma lactic acid venous 2.3. Sodium is 134, the glucose is 103 serum, ammonia is 10 Serum alcohol level <10 CT of the head is reported as no acute intracranial abnormality. I personally reviewed the CT and I felt there is some motion artifact but I agree there is no acute intracranial process. CT cervical spine is reported as no acute fracture in the cervical spine. Fracture of the proximal clavicle on the right. I personally reviewed that a CT cervical and on sagittal that there is a small circular bone between the C3-C4 region not in the spinal cord but the between the vertebrals. Objective - Vital Signs Vital signs: Vital Signs Temp 97.9 F 11/22/23 13:20 Pulse 76 11/22/23 17:20 Resp 20 11/22/23 13:20 BP 120/66 11/22/23 17:20 Pulse Ox 95 11/22/23 13:20 FiO2 Intake & Output 11/22/23 11/22/23 11/23/23 06:59 18:59 06:59 Intake Total 600 Output Total 600 1250 Balance -600 -650 Weight 114.305 kg Intake: Intake, IV Titration 600 Amount Cefepime 2 gm In Sodium 100 Chloride 0.9% 100 ml @ 25 mls/hr IVPB Q8HR EAN Rx# :[id number] Vancomycin 1,750 mg In 500 Sodium Chloride 0.9% 500 ml 500 ml @ 167 mls/hr IVPB Q12H EAN Rx#: [id number] Output: Urine 600 1250 Other: Voiding Method Urinal Urinal # Voids 3 - Exam Patient is an elderly male, very pleasant, in no acute distress. Patient is alert awake oriented to time place and person. Patient knows it is November 2023 and that he is in [place] in [facility] in [place]. He knows name of the current president Mr. Jay. Speech and language functions are normal. Patient can name and repeat very well. No aphasia or dysarthria. Attention, concentration and fund of knowledge is adequate. On cranial nerve examination, pupils are equal, round and reacting to light, visual nye are full on confrontation, with no neglect on double simultaneous stimulation. Extraocular muscles are intact with no nystagmus. Face is symmetric, tongue protrudes to the midline. Palatal elevation and sensation normal, hearing is slightly decreased and shoulder shrug normal, facial sensation normal. On muscle strength testing, there is no pronator drift and the strength is normal in arms and legs distally and proximally. Sensory to touch is equal with no neglect on double simultaneous stimulation. Cerebellar function showed no ataxia for [id number] testing. Tone and bulk of muscles normal. Gait deferred.. On general examination, there is no carotid bruit or murmur, S1-S2 audible. Chest is clear on consultation. Abdomen is soft nontender. No organomegaly, bowel sounds present. Patient has hyperpigmentation and some skin changes in his legs. - Labs CBC & Chem 7: 11/21/23 08:20 11/22/23 11:02 Labs: Abnormal Lab Results - Last 24 Hours (Table) 11/21/23 11/22/23 11/22/23 Range/Units 20:25 05:55 10:34 PT (10.0-12.5) sec INR (<1.2) Sodium (137-145) mmol/L BUN (9-20) mg/dL Glucose (74-99) mg/dL POC Glucose (mg/dL) 461 H 504 H >600 H (70-110) mg/dL Calcium (8.4-10.2) mg/dL Urine Glucose (UA) (Negative) 11/22/23 11/22/23 11/22/23 Range/Units 10:54 11:02 11:03 PT 33.5 H (10.0-12.5) sec INR 3.4 H (<1.2) Sodium 130 L (137-145) mmol/L BUN 33 H (9-20) mg/dL Glucose 638 H* (74-99) mg/dL POC Glucose (mg/dL) (70-110) mg/dL Calcium 7.8 L (8.4-10.2) mg/dL Urine Glucose (UA) 4+ H (Negative) 11/22/23 11/22/23 11/22/23 Range/Units 11:41 14:07 15:25 PT (10.0-12.5) sec INR (<1.2) Sodium (137-145) mmol/L BUN (9-20) mg/dL Glucose (74-99) mg/dL POC Glucose (mg/dL) >600 H 558 H 366 H (70-110) mg/dL Calcium (8.4-10.2) mg/dL Urine Glucose (UA) (Negative) 11/22/23 Range/Units 17:02 PT (10.0-12.5) sec INR (<1.2) Sodium (137-145) mmol/L BUN (9-20) mg/dL Glucose (74-99) mg/dL POC Glucose (mg/dL) 285 H (70-110) mg/dL Calcium (8.4-10.2) mg/dL Urine Glucose (UA) (Negative) Microbiology - Last 24 Hours (Table) 11/18/23 02:30 Blood Culture - Preliminary Blood 11/18/23 02:15 Blood Culture - Preliminary Blood Assessment and Plan Assessment: This is a 67-year-old gentleman who presents the emergency department because of shortness of breath and left-sided chest pain on 11/17/2023. Patient was discharged from our facility on 11-15 for shortness of breath. During this hospital visit while he was in the ED the patient was agitated somewhat confused and fell in the bathroom. His pO2 was as low as 88% at room air. Altered mental status appears due to hypoxic encephalopathy. Also on chest x- ray is reported as worsening right basilar acute infiltrates and or atelectasis rule out pneumonia. CT head is negative for acute process and had multiple CT head during recent hospital visit and negative. Recent fall due to above. On CT cervical spine Dr. Goodson has felt there is a bone fragment between C3-C4 rule out fracture Acute exacerbation of COPD Atrial fibrillation on Coumadin MRSA in sputum and nasal secretion. Diabetes mellitus and patient on presentation had hypoglycemia and currently is sugars was as high as 500 during his stay and was steroid-induced hyperglycemia. Closed head injury in 2007 Hypertension Hyperlipidemia Nonhealing ulcer of the right foot History Hepatitis C with chronic liver disease Chronic ongoing tobacco use Plan: Patient's mentation is back to normal. Patient's examination is nonfocal. All workup performed as mentioned below is normal. MRI the brain revealed no acute ischemic process, no acute/subacute CVA or mass. Nonspecific white matter change, likely from small vessel disease. Trace bilateral mastoid effusion. EEG revealed intermittent background slowing, consistent with mild encephalopathy. No epileptiform activity was seen. Dr. Goodson has consulted the orthopedic team, Dr. Disla for questionable suspicious bone fragment C3 and C4. He was evaluated by Dr. Disla and does not feel acute process for cervical spine and no new fracture or dislocation. Pulmonology is consulted We'll defer the rest of the medical measure the primary and other specialists. Neurologically no other workup indicated. Please call neurology service if any other concerns.
[2023-11-22 20:21] LABS: Glucose,Whole Blood 335 mg/dL (70-110)
[2023-11-22] MEDS: INSULIN DETEMIR (LEVEMIR) 100 UNIT/ML SYR SQ SCH (20:35)
[2023-11-22] MEDS: traMADol 50 MG TAB PO PRN (20:43)
[2023-11-22] MEDS ORDERED: INSULIN DETEMIR (LEVEMIR) 100 UNIT/ML SYR SQ SCH ×2 (21:00)
[2023-11-23 03:04] VITALS: RESP 18
[2023-11-23 06:02] LABS: Glucose,Whole Blood 518 mg/dL (70-110)
[2023-11-23 06:39] LABS: INR 2.4 (<1.2); Prothrombin Time 24.1 sec (10.0-12.5)
[2023-11-23] MEDS: methylPREDNISolone 4 MG TAB TAPER PO SCH (08:01)
[2023-11-23] MEDS: INSULIN DETEMIR (LEVEMIR) 100 UNIT/ML SYR SQ SCH (08:21)
[2023-11-23 08:45] LABS: BUN/Creat Ratio 29.08 Ratio (12.00-20.00); Blood Urea Nitrogen 34.9 mg/dL (9.0-27.0); Calcium 8.2 mg/dL (8.7-10.3); Carbon Dioxide 22.7 mmol/L (21.6-31.8); Chloride 97 mmol/L (96-109); Glucose 498 mg/dL (70-110); Potassium 4.4 mmol/L (3.5-5.5); Sodium 132 mmol/L (135-145)
[2023-11-23 08:55] LABS: Basophils # (A) 0.03 X 10*3/uL (0.00-0.10); Basophils % (A) 0.2 %; Eosinophils # (A) 0 X 10*3/uL (0.04-0.35); Eosinophils % (A) 0 %; HCT 35.5 % (39.6-50.0); HGB 11.7 g/dL (13.0-17.0); Lymphocytes # (A) 0.74 X 10*3/uL (0.90-5.00); Lymphocytes % (A) 4.4 %; MCH 31.2 pg (27.0-32.0); MCV 94.7 FL (80.0-97.0); Mean Platelet Volume 10.1 FL (9.5-12.2); Monocytes # (A) 0.93 X 10*3/uL (0.20-1.00); Monocytes % (A) 5.6 %; NRBC Per 100 WBC 0 X 10*3/uL (0.00-0.01); Neutrophils # (A) 14.76 X 10*3/uL (1.80-7.70); Neutrophils % (A) 88.5 %; Platelet Count 201 X 10*3/uL (140-440); RBC 3.75 X 10*6/uL (4.40-5.60); RDW 14.5 % (11.5-14.5); WBC 16.67 X 10*3/uL (4.50-10.00)
[2023-11-23 10:14] LABS: Glucose,Whole Blood 378 mg/dL (70-110)
[2023-11-23 11:43] LABS: Glucose,Whole Blood 230 mg/dL (70-110)
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
--- NOTE | 2023-11-23 16:10 | CDI ---
Documentation Clarification Form Date: 11/23/2023 03:42:22 PM From: Claudia Owusu RN, CCDS Email: [email or web address] Admit Date: 11/18/2023 02:14:00 AM Patient Name: Dennis Rubio Visit Number: [id number] Discharge Date: ATTENTION: The Clinical Documentation Specialists (CDI) and [facility] Coding Staff appreciate your assistance in clarifying documentation. Please respond to the clarification below the line at the bottom and electronically sign. The CDI & [facility] Coding staff will review the response and follow-up if needed. Please note: Queries are made part of the Legal Health Record. If you have any questions, please contact the author of this message via ITS. Dr. Aguirre E Sheet The patient has pneumonia, leukocytosis and tachycardia. Based on this information and the findings below, is there an additional diagnosis that is clinically appropriate for this patient? History/Risk Factors: COPD, CAD with stents, A fib on anticoagulation and hepatitis C. Presented with SOB, confusion and chest pain. Admitted with pneumonia and acute metabolic encephalopathy. Clinical Indicators: 11/16-11/22 WBC: 12.9-17.7-11.71-16.67 11/16-11/17 Lactic acid: 2.3-2.0 11/16 CXR: Right basilar airspace opacities. Correlate for pneumonia. 11/17 Sputum culture: MRSA and pseudomonas 11/16 HR 121, 22 11/17 HR 131, RR 32, pox 88% 11/17 H&P: "On admission patient is afebrile but he is tachycardic, tachypneic with heart rate 118 and the respiratory rate 22 breaths per minute. He is saturating 92% on 2 L oxygen nasal cannula. He has mild leukocytosis." 11/18 Pulmonary: "He has extensive pneumonia and the sputum is grown a combination of MRSA and Pseudomonas aeruginosa." Treatment: Antibiotics: IV Vancomycin 1750mg Q12H 11/17-current; IV Azithromycin 500mg x1 on 11/17; IV Cefepime 2gm Q8H 11/17-current; IV Rocephin 2gm x1 on 11/17 IV Bolus: 1L 0.9 NS IV bolus on 11/16 Is there an additional diagnosis that is clinically appropriate for this patient? [x ] Sepsis, present on admission [ ] No additional diagnosis [ ] Other, please specify [ ] Unable to determine SIRS Criteria: 2 or more of the following may indicate SIRS Temperature < 96.8F (36C) or > 101.0F (38.3C) Heart Rate > 90 bpm Respiratory Rate > 20 breaths/min or PaCO2 < 32 mmHg White Blood Cell Count > 12,000 or < 4,000 cells/mm3 or > 10% bands MTDD
[2023-11-23 16:44] LABS: Glucose,Whole Blood 209 mg/dL (70-110)
[2023-11-23] MEDS: WARFARIN 3 MG TAB PO ONE (17:19)
[2023-11-23] MEDS: PHENAZOPYRIDINE 100 MG TAB PO SCH (18:38)
[2023-11-23 19:54] LABS: Glucose,Whole Blood 245 mg/dL (70-110)
[2023-11-23 20:38] LABS: Appearance,Urine Clear (Clear); Bilirubin,Urine Negative (Negative); Blood,Urine Moderate (Negative); Color,Urine Yellow; Glucose,Urine (UA) 3+ (Negative); Ketones,Urine Negative (Negative); Leukocyte Esterase,Urine Negative (Negative); Mucus,Urine Rare /hpf; Nitrite,Urine Negative (Negative); Protein,Urine Trace (Negative); RBC,Urine 41 /hpf (0-5); Specific Gravity,Urine 1.021 (1.001-1.035); Squamous Epithelial Cell,Urine <1 /hpf (0-4); Urobilinogen,Urine <2.0 mg/dL (<2.0); WBC,Urine 3 /hpf (0-5)
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
[2023-11-24 06:00] LABS: Glucose,Whole Blood 376 mg/dL (70-110)
[2023-11-24 06:51] LABS: INR 1.8 (<1.2); Prothrombin Time 18.6 sec (10.0-12.5)
[2023-11-24 07:00] LABS: African American GFR (CKD) 66 (>60 ml/min/1.73 sqM); Anion Gap 6 mmol/L; Blood Urea Nitrogen 42 mg/dL (9-20); Calcium 8.5 mg/dL (8.4-10.2); Carbon Dioxide 29 mmol/L (22-30); Chloride 98 mmol/L (98-107); Glucose 364 mg/dL (74-99); Non-African American GFR(CKD) 57 (>60 ml/min/1.73 sqM); Potassium 4.6 mmol/L (3.5-5.1); Sodium 133 mmol/L (137-145)
--- NOTE | 2023-11-24 07:52 | XR ---
EXAMINATION TYPE: XR chest 1V portable DATE OF EXAM: 11/24/2023 HISTORY: Shortness of breath. COMPARISON: 11/19/2023 TECHNIQUE: Single view of the chest is submitted. FINDINGS: Demonstrated are scattered senescent parenchymal change. Basilar infiltrates and/or atelectasis persists with small effusions suspected. Slight interval impro vement suggested. The heart is stable. Hilar and mediastinal structures are within normal limits. Degenerative changes are seen of the dorsal spine. IMPRESSION: 1. Basilar infiltrates and/or atelectasis persists with small effusions suspected. Slight interval i mprovement suggested.
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
[2023-11-24 11:11] LABS: Basophils # (A) 0.03 X 10*3/uL (0.00-0.10); Basophils % (A) 0.3 %; Eosinophils # (A) 0.02 X 10*3/uL (0.04-0.35); Eosinophils % (A) 0.2 %; HCT 37.7 % (39.6-50.0); Lymphocytes # (A) 1.11 X 10*3/uL (0.90-5.00); Lymphocytes % (A) 10.1 %; MCH 30.8 pg (27.0-32.0); MCHC 31.8 g/dL (32.0-37.0); MCV 96.7 FL (80.0-97.0); Mean Platelet Volume 10.2 FL (9.5-12.2); Monocytes # (A) 1.01 X 10*3/uL (0.20-1.00); Monocytes % (A) 9.2 %; NRBC Per 100 WBC 0 X 10*3/uL (0.00-0.01); Neutrophils # (A) 8.65 X 10*3/uL (1.80-7.70); Neutrophils % (A) 78.8 %; Platelet Count 244 X 10*3/uL (140-440); RDW 14.6 % (11.5-14.5); WBC 10.97 X 10*3/uL (4.50-10.00)
[2023-11-24 11:42] LABS: Glucose,Whole Blood 291 mg/dL (70-110)
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
[2023-11-24 15:08] VITALS: BP 119/73; PULSE 75; TEMP 97.5
[2023-11-24] MEDS ORDERED: WARFARIN 7.5 MG TAB PO ONE (18:00)
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
[2023-11-25] MEDS ORDERED: VANCOMYCIN TROUGH DUE 1 EACH MISC MISCELLANE ONE (11:00)
== END 2023-11-24 17:24 | disposition home or self-care (01) | DRG 871 ==
LOC: EC 19:43 → 4SSUR 11-18 02:14
PROVIDERS: ADMIT Family Medicine; ATTEND Family Medicine
DX: A41.52 Sepsis due to Pseudomonas (principal); G92.8 Other toxic encephalopathy; J15.1 Pneumonia due to Pseudomonas; J96.21 Acute and chronic respiratory failure with hypoxia; J15.212 Pneumonia due to Methicillin resistant Staphylococcus aureus; G93.1 Anoxic brain damage, not elsewhere classified; J98.11 Atelectasis; J44.0 Chronic obstructive pulmonary disease with (acute) lower respiratory infection; M86.671 Other chronic osteomyelitis, right ankle and foot; J44.1 Chronic obstructive pulmonary disease with (acute) exacerbation; I48.20 Chronic atrial fibrillation, unspecified; R65.20 Severe sepsis without septic shock; F17.200 Nicotine dependence, unspecified, uncomplicated; B19.20 Unspecified viral hepatitis C without hepatic coma; E03.9 Hypothyroidism, unspecified; E11.65 Type 2 diabetes mellitus with hyperglycemia; E11.51 Type 2 diabetes mellitus with diabetic peripheral angiopathy without gangrene; K74.60 Unspecified cirrhosis of liver; L97.512 Non-pressure chronic ulcer of other part of right foot with fat layer exposed; E11.621 Type 2 diabetes mellitus with foot ulcer; I10 Essential (primary) hypertension; E11.69 Type 2 diabetes mellitus with other specified complication; Z99.81 Dependence on supplemental oxygen; G40.909 Epilepsy, unspecified, not intractable, without status epilepticus; E11.628 Type 2 diabetes mellitus with other skin complications; E78.5 Hyperlipidemia, unspecified; H91.90 Unspecified hearing loss, unspecified ear; I25.10 Atherosclerotic heart disease of native coronary artery without angina pectoris; Z11.52 Encounter for screening for COVID-19; Z71.3 Dietary counseling and surveillance; R45.1 Restlessness and agitation; S09.90XS Unspecified injury of head, sequela; M19.90 Unspecified osteoarthritis, unspecified site; V29.99XS Rider (driver) (passenger) of other motorcycle injured in unspecified traffic accident, sequela; R41.3 Other amnesia; L03.031 Cellulitis of right toe; M25.511 Pain in right shoulder; W01.0XXA Fall on same level from slipping, tripping and stumbling without subsequent striking against object, initial encounter; R16.1 Splenomegaly, not elsewhere classified; K80.20 Calculus of gallbladder without cholecystitis without obstruction; M50.30 Other cervical disc degeneration, unspecified cervical region; M51.36 Other intervertebral disc degeneration, lumbar region; R79.1 Abnormal coagulation profile; T38.0X5A Adverse effect of glucocorticoids and synthetic analogues, initial encounter; T45.515A Adverse effect of anticoagulants, initial encounter; Z79.82 Long term (current) use of aspirin; Z79.01 Long term (current) use of anticoagulants; Z79.4 Long term (current) use of insulin; Z87.81 Personal history of (healed) traumatic fracture; Z79.899 Other long term (current) drug therapy; Z79.02 Long term (current) use of antithrombotics/antiplatelets; Z79.52 Long term (current) use of systemic steroids; Z88.1 Allergy status to other antibiotic agents; Z86.010 Personal history of colon polyps; Z86.19 Personal history of other infectious and parasitic diseases; Z53.20 Procedure and treatment not carried out because of patient's decision for unspecified reasons; Z78.1 Physical restraint status; Z79.84 Long term (current) use of oral hypoglycemic drugs; Z95.5 Presence of coronary angioplasty implant and graft
CPT/HCPCS: 36415; 70450; 70551; 71045; 71046; 72125; 74177; 76705; 80048; 80053; 80202; 80320; 81001; 81003; 82140; 82565; 83036; 83605; 83735; 84145; 84484; 85025; 85610; 85730; 87040; 87070; 87077; 87186; 87205; 87449; 87636; 93005; 94640; 94760; 95816; 96361; 96365; 96375; 96376; 99291

== ENCOUNTER 2023-12-07 12:20 | Emergency (ER) | payer MEDICARE ==
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
[2023-12-07 13:43] LABS: Glucose,Whole Blood 231 mg/dL (70-110)
[2023-12-07 13:43] LABS: Basophils # (A) 0.1 k/uL (0-0.2); Basophils % (A) 1 %; Eosinophils # (A) 0.2 k/uL (0-0.7); Eosinophils % (A) 1 %; HCT 36.3 % (39.0-53.0); HGB 12.1 gm/dL (13.0-17.5); Lymphocytes # (A) 1.3 k/uL (1.0-4.8); Lymphocytes % (A) 11 %; MCH 31.1 pg (25.0-35.0); MCHC 33.2 g/dL (31.0-37.0); MCV 93.7 fL (80.0-100.0); Mean Platelet Volume 7.9; Monocytes # (A) 0.5 k/uL (0-1.0); Monocytes % (A) 4 %; Neutrophils # (A) 9.8 k/uL (1.3-7.7); Neutrophils % (A) 83 %; Platelet Count 192 k/uL (150-450); RBC 3.87 m/uL (4.30-5.90); RDW 14.6 % (11.5-15.5); WBC 11.8 k/uL (3.8-10.6)
[2023-12-07 14:02] LABS: ALT 47 U/L (4-49); AST 65 U/L (17-59); African American GFR (CKD) >90 (>60 ml/min/1.73 sqM); Albumin 3.9 g/dL (3.5-5.0); Alkaline Phosphatase 112 U/L (38-126); Anion Gap 9 mmol/L; Blood Urea Nitrogen 38 mg/dL (9-20); Calcium 8.7 mg/dL (8.4-10.2); Carbon Dioxide 26 mmol/L (22-30); Chloride 96 mmol/L (98-107); Glucose 206 mg/dL (74-99); Non-African American GFR(CKD) >90 (>60 ml/min/1.73 sqM); Sodium 131 mmol/L (137-145); Total Protein 7.9 g/dL (6.3-8.2)
[2023-12-07 14:06] LABS: Potassium 4.9 mmol/L (3.5-5.1)
[2023-12-07 14:36] LABS: Appearance,Urine Clear (Clear); Bilirubin,Urine Negative (Negative); Blood,Urine Negative (Negative); Color,Urine Light Yellow; Glucose,Urine (UA) 1+ (Negative); Ketones,Urine Negative (Negative); Leukocyte Esterase,Urine Negative (Negative); Nitrite,Urine Negative (Negative); PH, Urine 6.5 (5.0-8.0); Protein,Urine Negative (Negative); Specific Gravity,Urine 1.018 (1.001-1.035); Urobilinogen,Urine <2.0 mg/dL (<2.0)
[2023-12-07 14:58] LABS: Partial Thromboplastin Time 27.1 sec (22.0-30.0); Prothrombin Time 29.1 sec (10.0-12.5)
--- NOTE | 2023-12-07 15:22 | XR ---
EXAMINATION TYPE: XR chest 2V DATE OF EXAM: 12/07/2023 3:17 PM CLINICAL INDICATION:Male, 67 years old with history of Weakness; [facility] COMPARISON: Chest radiographs from 11/24/2023. TECHNIQUE: XR chest 2V Frontal and lateral views of the chest. FINDINGS: Lungs/Pleura: There is flattening of the diaphragm with increased lucency of the lungs. No evidence o f pneumothorax, pleural effusion or focal consolidation. Pulmonary vascularity: Unremarkable. Heart/mediastinum: Cardiomediastinal silhouette is unremarkable. Musculoskeletal: No acute osseous pathology. Other findings: None Lines/Tubes: IMPRESSION: 1. No acute cardiopulmonary disease process. 2. COPD changes.
[2023-12-07] MEDS: SODIUM CHLORIDE 0.9% 1,000 ML IV ONE (15:42)
--- NOTE | 2023-12-07 15:42 | CT ---
EXAMINATION TYPE: CT brain wo con DATE OF EXAM: 12/07/2023 COMPARISON: 11/14/2023 HISTORY: general weakness CT DLP: 1452 mGycm Automated exposure control for dose reduction was used. FINDINGS: The ventricles, basal cisterns and sulci over convexities are mildly prominent consistent with mild a ge-appropriate atrophy. There is mild decreased density in the periventricular white matter consistent with mild chronic isch emic white matter demyelination. There is no mass effect or shift in midline structures. There is no acute intra or extra-axial hemorrhage. The posterior fossa is grossly normal. The intraorbital contents appear normal symmetric. There is mild chronic inflammatory change in the left maxillary sinus. The mastoid air cells are well aerated. IMPRESSION: 1. No acute bleed or mass effect. 2. Mild age-appropriate atrophy. 3. No significant interval change compared to previous IMPRESSION:
[2023-12-07 17:57] VITALS: BP 114/73; PULSE 77; RESP 20; TEMP 98.2
== END 2023-12-07 17:40 | disposition home or self-care (01) ==
LOC: EC 12:20
DX: E86.0 Dehydration (principal); R53.1 Weakness; R39.15 Urgency of urination; F12.90 Cannabis use, unspecified, uncomplicated
CPT/HCPCS: 36415; 51798; 70450; 71046; 80053; 81003; 83605; 83735; 84484; 85025; 85610; 85730; 93005; 96360; 96361; 99285

== ENCOUNTER 2024-01-05 10:35 | Day surgery (SDC) | payer MEDICARE ==
[2024-01-05] MEDS: SODIUM CHLORIDE 0.9% 500 ML 500 ML IV ONE (10:45)
[2024-01-05 11:28] VITALS: RESP 16; TEMP 98.4
[2024-01-05] MEDS ORDERED: fentaNYL (PF) 50 MCG/ML 2 ML AMP ONE (11:59)
[2024-01-05] MEDS: BENZOCAINE SPRAY 1 CAN TOPICAL ONE (12:11)
[2024-01-05] MEDS: MIDAZOLAM 2 MG/2 ML VIAL IVP ONE ×2 (12:14)
[2024-01-05] MEDS: fentaNYL (PF) 50 MCG/1 ML VIAL IVP ONE (12:27)
--- NOTE | 2024-01-05 12:48 | P.PCN ---
Date of Procedure: 01/05/24 Operative Findings: TRANSESOPHAGEAL ECHOCARDIOGRAM MANAGER CARDIOVASCULAR: NELLIE GRANADOS MD, RPVI INDICATION: Rule out cardiac source of embolization SEDATION: Conscious sedation COMPLICATION: None LEVEL OF SEDATION Moderate with sedation length of 16 minutes PROCEDURE DESCRIPTION: After obtaining an informed consent, the patient was brought to transesophageal echocardiogram room. Pulse oximetry and heart monitors were attached to the patient. The patient throat was sprayed using lidocaine. The patient was turned into left lateral position. After that a bite guard was placed. After an appropriate conscious sedation was initiated, the transesophageal echocardiogram was advanced through a bite guard into the mid esophagus. A 2-D echocardiogram images, color Doppler images, continuous wave images, pulse-wave images, of various cardiac structure were performed. After that the transesophageal echocardiogram probe was advanced into the stomach and fixed to obtain transgastric view was. The probe was brought into the mid esophagus. Inter-atrial septum was interrogated using 2D images, color Doppler images, and then contrast study. After that transesophageal echocardiogram was withdrawn out and upon withdrawing the descending thoracic aorta all the way up to the arch was evaluated. CONCLUSION: 1. Normal LV systolic function 2. Intact interatrial septum with no shunt 3. Intact left atrial appendage with no thrombus 4. Overall normal intracardiac valves 5. No evidence of pericardial effusion
[2024-01-05 15:03] VITALS: BP 130/68; PULSE 80
== END 2024-01-05 13:50 | disposition home or self-care (01) ==
LOC: CATHCVL 10:35
PROVIDERS: ATTEND Internal Medicine Interventional Cardiology
DX: I48.21 Permanent atrial fibrillation (principal); I10 Essential (primary) hypertension; E78.5 Hyperlipidemia, unspecified; E11.9 Type 2 diabetes mellitus without complications; F17.210 Nicotine dependence, cigarettes, uncomplicated; Z82.49 Family history of ischemic heart disease and other diseases of the circulatory system; Z79.82 Long term (current) use of aspirin; Z79.899 Other long term (current) drug therapy; Z79.01 Long term (current) use of anticoagulants; Z86.73 Personal history of transient ischemic attack (TIA), and cerebral infarction without residual deficits
CPT/HCPCS: 93312; 93320; 93325; J2250; J3010

== ENCOUNTER 2024-01-11 00:44 | Emergency (ER) | payer MEDICARE ==
[2024-01-11 01:47] LABS: Basophils # (A) 0.1 k/uL (0-0.2); Basophils % (A) 0 %; Eosinophils # (A) 0.1 k/uL (0-0.7); Eosinophils % (A) 1 %; HCT 28.8 % (39.0-53.0); Lymphocytes % (A) 27 %; MCHC 33.3 g/dL (31.0-37.0); MCV 96.3 fL (80.0-100.0); Mean Platelet Volume 8.3; Monocytes # (A) 0.8 k/uL (0-1.0); Monocytes % (A) 7 %; Neutrophils # (A) 6.7 k/uL (1.3-7.7); Neutrophils % (A) 61 %; Platelet Count 217 k/uL (150-450); Poikilocytosis Slight; RDW 15.9 % (11.5-15.5); WBC 10.9 k/uL (3.8-10.6)
[2024-01-11 01:48] VITALS: TEMP 96.5
[2024-01-11 01:52] LABS: HGB 9.6 gm/dL (13.0-17.5)
[2024-01-11 01:57] LABS: INR 1.1 (<1.2); Partial Thromboplastin Time 23.2 sec (22.0-30.0)
[2024-01-11 02:01] LABS: ALT 20 U/L (4-49); AST 26 U/L (17-59); African American GFR (CKD) >90 (>60 ml/min/1.73 sqM); Albumin 3.6 g/dL (3.5-5.0); Alkaline Phosphatase 68 U/L (38-126); Anion Gap 10 mmol/L; Blood Urea Nitrogen 61 mg/dL (9-20); Calcium 8.5 mg/dL (8.4-10.2); Carbon Dioxide 23 mmol/L (22-30); Chloride 101 mmol/L (98-107); Glucose 174 mg/dL (74-99); Magnesium 1.6 mg/dL (1.6-2.3); Non-African American GFR(CKD) 85 (>60 ml/min/1.73 sqM); Potassium 3.5 mmol/L (3.5-5.1); Sodium 134 mmol/L (137-145); Total Bilirubin 0.7 mg/dL (0.2-1.3); Total Protein 6.6 g/dL (6.3-8.2)
[2024-01-11] MEDS ORDERED: Kcentra PER PHARMACY 1 EACH MISC MISCELLANE PRN (02:59)
[2024-01-11] MEDS: ONDANSETRON 4 MG/2 ML VIAL IVP STA (03:28)
[2024-01-11] MEDS: MORPHINE SULFATE 4 MG/ML SYRINGE IV STA ×2 (03:32→04:51)
[2024-01-11] MEDS: PANTOPRAZOLE 40 MG/10 ML VIAL IVP ONE (03:38)
[2024-01-11] MEDS: HUMAN PROTHROMBIN COMPLX IV ONE (03:39)
[2024-01-11] MEDS ORDERED: HUMAN PROTHROMBIN COMPLX 500 UNIT/16 ML VIAL IV ONE (03:39)
[2024-01-11] MEDS: FAMOTIDINE 20 MG/2 ML VIAL IV STA (03:44)
--- NOTE | 2024-01-11 03:44 | XR ---
EXAM: XR Chest, 2 Views CLINICAL HISTORY: ITS.REASON XR Reason: Chest Pain TECHNIQUE: Frontal and lateral views of the chest. COMPARISON: No relevant prior studies available. FINDINGS: Lungs: No consolidation or mass. Pleural space: No effusion. Heart: No cardiomegaly. Bones/joints: No acute findings. IMPRESSION: No acute cardiopulmonary process.
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
[2024-01-11 05:04] VITALS: BP 104/73; PULSE 89; RESP 16
--- NOTE | 2024-01-11 05:54 | XR ---
EXAM: XR Left Hip 2 Views CLINICAL HISTORY: pain TECHNIQUE: Two views of the left hip COMPARISON: CT pelvis 11/17/2023. FINDINGS: Bones/joints: Degenerative changes lower lumbar spine. No acute fracture. No dislocation. Soft tissues: Unremarkable. IMPRESSION: No acute fracture or dislocation.
== END 2024-01-11 04:54 | disposition other institution (70) ==
LOC: EC 00:44
DX: K92.2 Gastrointestinal hemorrhage, unspecified (principal); M54.32 Sciatica, left side; D64.9 Anemia, unspecified; F17.200 Nicotine dependence, unspecified, uncomplicated
CPT/HCPCS: 36415; 93005; 80053; 83735; 84484; 85025; 85610; 85730; 73502; 71046; 99291; 96374; 96375 ×3; 96376; J2270; J2405; J7168; C9113

== ENCOUNTER 2024-01-27 11:22 | Observation (INO) | payer MEDICARE ==
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
[2024-01-27] MEDS: SODIUM CHLORIDE 0.9% 1,000 ML IV STA (12:11)
[2024-01-27 12:20] LABS: Anisocytosis Slight; Basophils # (A) 0.1 k/uL (0-0.2); Basophils % (A) 1 %; Eosinophils # (A) 0.3 k/uL (0-0.7); Eosinophils % (A) 3 %; HCT 33.4 % (39.0-53.0); HGB 10.8 gm/dL (13.0-17.5); Hypochromasia Moderate; Lymphocytes # (A) 1.8 k/uL (1.0-4.8); Lymphocytes % (A) 23 %; MCH 29.1 pg (25.0-35.0); MCHC 32.2 g/dL (31.0-37.0); Mean Platelet Volume 7.7; Monocytes # (A) 0.6 k/uL (0-1.0); Monocytes % (A) 8 %; Neutrophils # (A) 4.9 k/uL (1.3-7.7); Neutrophils % (A) 62 %; Platelet Count 306 k/uL (150-450); Poikilocytosis Moderate; RDW 16.9 % (11.5-15.5); WBC 7.8 k/uL (3.8-10.6)
[2024-01-27 12:28] LABS: MCV 90.3 fL (80.0-100.0)
[2024-01-27 12:30] LABS: ALT 19 U/L (4-49); AST 24 U/L (17-59); African American GFR (CKD) 83 (>60 ml/min/1.73 sqM); Albumin 4.3 g/dL (3.5-5.0); Alkaline Phosphatase 138 U/L (38-126); Anion Gap 6 mmol/L; Blood Urea Nitrogen 22 mg/dL (9-20); Carbon Dioxide 31 mmol/L (22-30); Chloride 97 mmol/L (98-107); Glucose 108 mg/dL (74-99); Magnesium 1.6 mg/dL (1.6-2.3); Non-African American GFR(CKD) 72 (>60 ml/min/1.73 sqM); Partial Thromboplastin Time 25.3 sec (22.0-30.0); Potassium 4.1 mmol/L (3.5-5.1); Prothrombin Time 11.3 sec (10.0-12.5); Sodium 134 mmol/L (137-145); Total Bilirubin 0.6 mg/dL (0.2-1.3); Total Protein 7.7 g/dL (6.3-8.2)
--- NOTE | 2024-01-27 12:57 | XR ---
EXAMINATION TYPE: XR chest 2V DATE OF EXAM: 01/27/2024 COMPARISON: 01/11/2024 HISTORY: 68-year-old male with weakness and dizziness TECHNIQUE: AP and lateral views FINDINGS: Heart upper limits of normal in size. Hyperinflation. Some strandy atelectasis in the lower lungs. Mo re patchy appearance at the right base. IMPRESSION: COPD. Strandy atelectasis at the lung bases. However, there is more focal patchy atelectasis versus e snehal infiltrate at the right base.
[2024-01-27] MEDS ORDERED: DEXTROSE 50% SYRINGE 50 ML IVP PRN ×2 (15:40)
[2024-01-27] MEDS: SODIUM CHLORIDE 0.9% 1,000 ML IV ONE (15:59)
[2024-01-27] MEDS: PANTOPRAZOLE 40 MG TABLET PO SCH (15:59)
[2024-01-27] MEDS: traMADol 50 MG TAB PO SCH (15:59)
[2024-01-27] MEDS: GABAPENTIN 400 MG CAP PO SCH (15:59)
[2024-01-27] MEDS: ASPIRIN 81 MG PO SCH (15:59)
[2024-01-27 17:33] LABS: Glucose,Whole Blood 250 mg/dL (70-110)
--- NOTE | 2024-01-27 17:40 | CT ---
EXAMINATION TYPE: CT brain wo con DATE OF EXAM: 01/27/2024 COMPARISON: 12/07/2023 HISTORY: 68-year-old male Generalized weakness, rule out stroke TECHNIQUE: Examination was done in axial plane without intravenous contrast. Coronal and sagittal r econstructions performed. CT DLP: 1110.8 mGycm Automated exposure control for dose reduction was used. FINDINGS: There is no evidence of acute intracranial hemorrhage, acute ischemic changes, mass, mass-effect, or extra-axial fluid collection. There is no effacement of cerebral sulci or basal subarachnoid cister ns. There is no hydrocephalus. There is no midline shift. Jones-white matter distinction is preserv ed. Mild patchy periventricular white matter hypodensity. Atherosclerotic calcifications are of the carotid siphons. Undulating nasal septum. Mild to moderate mucosal thickening ethmoid air cells. Lobulated mucosal thi ckening floors of the maxillary sinuses. Mastoid air cells are well pneumatized. Orbits and globes are intact. IMPRESSION: Mild patchy burden of chronic small vessel ischemic disease. No acute intracranial abnormality seen.
[2024-01-27] MEDS: INSULIN ASPART (NovoLOG) 100 UNIT/ML VIAL SQ SCH (18:16)
[2024-01-27] MEDS: INSULIN NPH 100 UNIT/ML 10 ML VIAL SQ SCH (18:17)
[2024-01-27] MEDS: IPRATROPIUM 0.5 MG/2.5 ML NEBU INHALATION PRN (18:20)
[2024-01-27] MEDS: SYMBICORT 80-4.5 MCG INHALER INHALATION SCH (18:28)
[2024-01-27] MEDS: MONTELUKAST 10 MG TAB PO SCH (20:09)
[2024-01-27] MEDS: ATORVASTATIN 40 MG TAB PO SCH (20:09)
[2024-01-27] MEDS: APIXABAN 5 MG TAB PO SCH (20:09)
[2024-01-27] MEDS: carvediloL 6.25 MG TAB PO SCH (20:10)
[2024-01-27] MEDS: TAMSULOSIN 0.4 MG CAP.ER.24H PO SCH (20:10)
[2024-01-27 20:15] LABS: Glucose,Whole Blood 278 mg/dL (70-110)
[2024-01-27] MEDS: BUMETANIDE 1 MG TAB PO SCH (20:22)
[2024-01-27] MEDS: INSULIN DETEMIR (LEVEMIR) 100 UNIT/ML SYR SQ SCH (20:23)
--- NOTE | 2024-01-28 01:38 | HP ---
HISTORY AND PHYSICAL CHIEF COMPLAINT: Dizziness and weakness. HISTORY OF PRESENT ILLNESS: This 68-year-old gentleman with a past history of multiple medical problems, was recently admitted to [facility] with GI bleed and possible stroke. The patient was transferred to [facility] and apparently a polypectomy was done. The patient was complaining of right-sided weakness in the beginning, but subsequently at the hospital, the patient also had left-sided weakness and apparently the patient was told that denied rehab in [facility] in [facility] according to the patient. But, however, later the patient called and now told the patient that the patient is approved. In any case, the patient is complaining increased weakness and dizziness. The patient came back to [facility] and admitted for evaluation. Right leg is definitely weaker than the left at this time. The patient also feeling dizzy. There is no history of any fever, rigors, or chills at this time. The hemoglobin was apparently 8.2 previously, but currently the most recent hemoglobin is found to be 10.8. Lactic acid is 2.1 though. PAST MEDICAL HISTORY: Reviewed include recent stroke, GI bleed, and atrial fibrillation. Rest of the history and chart is also reviewed. HOME MEDICATIONS: Reviewed include Eliquis, dose and rest of medications noted. ALLERGIES: None. FAMILY HISTORY: History of diabetes mellitus in the family. SOCIAL HISTORY: Smoking daily. REVIEW OF SYSTEMS: A 14-point review is negative except as mentioned. PHYSICAL EXAMINATION: VITAL SIGNS: Pulse is 116, blood pressure 120/84, and respirations 18. HEENT: Conjunctivae pale. Oral mucosa moist. NECK: No jugular venous distention. CARDIOVASCULAR: S1, S2. RESPIRATION: Clear to auscultation. ABDOMEN: Soft and nontender. LEGS: Significant weakness diffusely, but left leg is definitely more weak, tender, and some wasting also present in the left proximal thigh area. SKIN: No ulcer, rash, bleeding. JOINTS: No active deforming arthropathy. LABORATORY DATA: At this time shows WBC 7.2, hemoglobin 10.8. Sodium 134. The rest of the labs, chest x-ray which I reviewed personally showed atelectasis and COPD. ASSESSMENT: 1. Generalized weakness and left lower leg weakness, rule out acute stroke. 2. History of recent gastrointestinal bleed, colonoscopy, and polypectomy. 3. Chronic obstructive pulmonary disease. 4. Atrial fibrillation. 5. Diabetes mellitus, type 2. 6. Hypertension. 7. Hyperlipidemia. 8. Gait dysfunction. 9. Coronary artery disease stent. 10.Multiple complex medical issues. RECOMMENDATIONS AND DISCUSSION: This 68-year-old gentleman, presented with multiple complex medical issues. I recommend to resume the home medications. PT/OT evaluation. I would also recommend CT scan of the brain and Neurology evaluation also to rule out any new acute stroke. Otherwise, neuro checks also will be recommended. Otherwise PT/OT evaluation. Social service consultation for possible ECF rehab. Resume the home medications. Lactic acid is elevated. I would recommend IV fluids and we will also obtain a set of blood cultures and UA exams also. Chest x-ray does not show any evidence of current pneumonia at this time. Incentive spirometry also will be recommended. See orders for details. Prognosis guarded. Further recommendations to follow. VALDOL / IJN: [id number] /
[2024-01-28 07:22] LABS: Glucose,Whole Blood 252 mg/dL (70-110)
[2024-01-28] MEDS: IPRATROPIUM 0.5 MG/2.5 ML NEBU INHALATION SCH (08:10)
[2024-01-28] MEDS: SENNOSIDES 8.6 MG TAB PO SCH (08:17)
[2024-01-28] MEDS: PIOGLITAZONE 15 MG TAB PO SCH (08:17)
[2024-01-28] MEDS: SPIRONOLACTONE 25 MG TAB PO SCH (08:18)
[2024-01-28] MEDS: NICOTINE 21MG/24HR PATCH TRANSDERM SCH (08:19)
[2024-01-28 08:28] LABS: African American GFR (CKD) >90 (>60 ml/min/1.73 sqM); Anion Gap 6 mmol/L; Blood Urea Nitrogen 20 mg/dL (9-20); Calcium 8.3 mg/dL (8.4-10.2); Carbon Dioxide 26 mmol/L (22-30); Chloride 104 mmol/L (98-107); Glucose 222 mg/dL (74-99); Non-African American GFR(CKD) 88 (>60 ml/min/1.73 sqM); Potassium 4.3 mmol/L (3.5-5.1); Sodium 136 mmol/L (137-145)
[2024-01-28 08:35] LABS: Anisocytosis Slight; Basophils % (A) 1 %; Eosinophils # (A) 0.2 k/uL (0-0.7); Eosinophils % (A) 4 %; HCT 30.8 % (39.0-53.0); HGB 9.5 gm/dL (13.0-17.5); Hypochromasia Marked; Lymphocytes # (A) 1.7 k/uL (1.0-4.8); Lymphocytes % (A) 30 %; MCH 28.3 pg (25.0-35.0); MCHC 30.8 g/dL (31.0-37.0); MCV 91.8 fL (80.0-100.0); Mean Platelet Volume 7.8; Monocytes # (A) 0.6 k/uL (0-1.0); Monocytes % (A) 11 %; Neutrophils # (A) 3.1 k/uL (1.3-7.7); Neutrophils % (A) 53 %; Platelet Count 247 k/uL (150-450); Poikilocytosis Slight; RBC 3.36 m/uL (4.30-5.90); WBC 5.8 k/uL (3.8-10.6)
[2024-01-28 11:56] LABS: Glucose,Whole Blood 171 mg/dL (70-110)
[2024-01-28 17:18] LABS: Glucose,Whole Blood 138 mg/dL (70-110)
[2024-01-28 20:18] LABS: Glucose,Whole Blood 228 mg/dL (70-110)
[2024-01-28] MEDS: APIXABAN 2.5 MG TABLET PO SCH (21:36)
--- NOTE | 2024-01-28 22:38 | PN ---
PROGRESS NOTE DATE OF SERVICE: 01/28/2024 This is a 68-year-old gentleman who was admitted with multiple medical issues including weakness, also had recent stroke also. The patient also had recent episode of GI bleed and apparently, the endoscopy showed some polyps elsewhere and currently, Neurology evaluated the patient for the left-sided weakness and possibility of lumbar spinal etiology including radiculopathy is also being considered. MRI has been ordered by Neurology. No chest pain. No palpitation. PAST MEDICAL HISTORY: Reviewed. REVIEW OF SYSTEMS: A 14-point review of systems is negative except as mentioned earlier. CURRENT MEDICATIONS: Reviewed include Lipitor, dose and rest of medications noted. PHYSICAL EXAMINATION: VITAL SIGNS: Pulse 79, blood pressure 115/69, respirations 20. HEENT: Conjunctivae normal. NECK: No jugular venous distention. CARDIOVASCULAR: S1, S2. ABDOMEN: Soft. LEGS: No edema. No swelling. NERVOUS SYSTEM: As noted left weakness more than the right. LABORATORY DATA: Other labs are noted. ASSESSMENT: 1. Generalized weakness and left leg weakness, rule out acute stroke versus lumbar radiculopathy. 2. History of recent gastrointestinal bleed, colonoscopy, and polypectomy. 3. Chronic obstructive pulmonary disease. 4. History of recent right-sided stroke. 5. Atrial fibrillation. 6. Diabetes mellitus, type 2. 7. Hypertension. 8. Hyperlipidemia. 9. Gait dysfunction. 10.Coronary artery disease stent. 11.Multiple complex medical issues. RECOMMENDATIONS AND DISCUSSION: Recommend to continue current management, continue symptomatic treatment otherwise. At this time, closely follow with Neurology and MRI lumbar spine. Otherwise, I would also recommend to follow up with Cardiology to complete the workup as well. Otherwise, repeat labs will be ordered. PT/OT evaluation, possible ECF rehab. java project manager will follow tomorrow. Guarded prognosis. Further recommendations to follow. MMODL / IJN: [id number] /
[2024-01-29 07:16] LABS: Glucose,Whole Blood 221 mg/dL (70-110)
[2024-01-29] MEDS: APIXABAN 5 MG TAB PO SCH (08:20)
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
[2024-01-29 10:43] LABS: Basophils # (A) 0.05 X 10*3/uL (0.00-0.10); Basophils % (A) 0.7 %; Eosinophils # (A) 0.22 X 10*3/uL (0.04-0.35); Eosinophils % (A) 3.3 %; HCT 28.5 % (39.6-50.0); HGB 8.7 g/dL (13.0-17.0); Lymphocytes # (A) 1.71 X 10*3/uL (0.90-5.00); Lymphocytes % (A) 25.6 %; MCH 27.8 pg (27.0-32.0); MCHC 30.5 g/dL (32.0-37.0); MCV 91.1 FL (80.0-97.0); Mean Platelet Volume 9.5 FL (9.5-12.2); Monocytes # (A) 0.79 X 10*3/uL (0.20-1.00); Monocytes % (A) 11.8 %; NRBC Per 100 WBC 0 X 10*3/uL (0.00-0.01); Neutrophils # (A) 3.86 X 10*3/uL (1.80-7.70); Platelet Count 212 X 10*3/uL (140-440); RBC 3.13 X 10*6/uL (4.40-5.60); RDW 17.3 % (11.5-14.5); WBC 6.67 X 10*3/uL (4.50-10.00)
[2024-01-29 10:56] LABS: ALT 14 U/L (10-49); AST 19 U/L (14-35); Albumin 3.7 g/dL (3.8-4.9); Albumin/Globulin Ratio 1.37 Ratio (1.60-3.17); Alkaline Phosphatase 107 U/L (41-126); Blood Urea Nitrogen 18.9 mg/dL (9.0-27.0); Calcium 8.8 mg/dL (8.7-10.3); Carbon Dioxide 26.2 mmol/L (21.6-31.8); Chloride 100 mmol/L (96-109); Globulin 2.7 g/dL (1.6-3.3); Glucose 190 mg/dL (70-110); Potassium 4.2 mmol/L (3.5-5.5); Sodium 136 mmol/L (135-145); Total Bilirubin 0.3 mg/dL (0.3-1.2); Total Protein 6.4 g/dL (6.2-8.2)
[2024-01-29 12:31] LABS: Glucose,Whole Blood 113 mg/dL (70-110)
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
[2024-01-29] MEDS: SENNOSIDES-DOCUSATE SODIUM 1 EACH TAB PO SCH (15:17)
[2024-01-29] MEDS: bisacodyL 10 MG SUPP RECTAL STA (15:18)
[2024-01-29 17:08] LABS: Glucose,Whole Blood 240 mg/dL (70-110)
[2024-01-29 17:16] LABS: Anisocytosis Slight; HCT 29.5 % (39.0-53.0); Hypochromasia Marked; MCH 28.3 pg (25.0-35.0); MCHC 30.6 g/dL (31.0-37.0); MCV 92.5 fL (80.0-100.0); Mean Platelet Volume 7.7; Platelet Count 229 k/uL (150-450); Poikilocytosis Slight; RBC 3.18 m/uL (4.30-5.90); RDW 16.9 % (11.5-15.5); WBC 5.5 k/uL (3.8-10.6)
[2024-01-29 20:35] LABS: Glucose,Whole Blood 231 mg/dL (70-110)
[2024-01-30 06:53] LABS: Glucose,Whole Blood 228 mg/dL (70-110)
[2024-01-30 08:54] LABS: Anisocytosis Slight; Basophils % (A) 1 %; Eosinophils # (A) 0.2 k/uL (0-0.7); Eosinophils % (A) 3 %; HCT 30.2 % (39.0-53.0); HGB 9.1 gm/dL (13.0-17.5); Hypochromasia Marked; Lymphocytes # (A) 1.5 k/uL (1.0-4.8); Lymphocytes % (A) 23 %; MCV 93.4 fL (80.0-100.0); Mean Platelet Volume 8.2; Monocytes # (A) 0.6 k/uL (0-1.0); Monocytes % (A) 9 %; Neutrophils # (A) 4.1 k/uL (1.3-7.7); Neutrophils % (A) 61 %; Platelet Count 203 k/uL (150-450); Poikilocytosis Moderate; RBC 3.24 m/uL (4.30-5.90); RDW 16.5 % (11.5-15.5); WBC 6.7 k/uL (3.8-10.6)
[2024-01-30 09:20] LABS: African American GFR (CKD) >90 (>60 ml/min/1.73 sqM); Anion Gap 3 mmol/L; Blood Urea Nitrogen 20 mg/dL (9-20); Calcium 8.4 mg/dL (8.4-10.2); Carbon Dioxide 30 mmol/L (22-30); Chloride 103 mmol/L (98-107); Glucose 172 mg/dL (74-99); Non-African American GFR(CKD) 86 (>60 ml/min/1.73 sqM); Potassium 4.3 mmol/L (3.5-5.1); Sodium 136 mmol/L (137-145)
[2024-01-30] MEDS: diazePAM 5 MG TAB PO STA ×2 (11:59→18:32)
[2024-01-30 12:09] LABS: Glucose,Whole Blood 238 mg/dL (70-110)
--- NOTE | 2024-01-30 13:57 | P.PN ---
Subjective Progress Note Date: 01/30/24 Consult reason: atrial fibrillation History of present illness: This is a 68-year-old male patient of Dr. Montalvo with past medical history of coronary artery disease with prior stenting of the LAD, permanent atrial fibrillation on Eliquis, hypertension, dyslipidemia, valvular heart disease with aortic mitral regurgitation, nonischemic cardiomyopathy, COPD, diabetes mellitus type 2 insulin requiring, recent diagnosis of stroke while he was on Coumadin, recent history of GI bleed and anemia, hepatitis C. Patient was seen in the office by Dr. Montalvo on 01/27/2024. He presented with weakness, difficulty getting around his home along with a little dizziness and lightheadedness. Patient appeared to be pale and not well. Patient was sent over to [facility] for further evaluation. Patient states that he has had some weakness from the stroke. He states he feels a little bit better this morning. He states overall he has not been active for the past 3 to 4 months. He denies shortness of breath. No chest pain or chest pressure. He states he has dizziness sometimes. He occasionally has palpitations. But has not had any syncopal episodes. He denies any lower extremity edema. He complains of cough with yellow sputum production. No fever. He denies any nausea and vomiting. Besides of recent GI bleed for which she had a workup at [facility] he was seen by GI services and underwent EGD that was unremarkable. Patient also u nderwent colonoscopy which showed no active bleeding but polyps were removed. He has had no further episodes of vomiting blood and no blood in his stools. Patient is an active smoker of 10 to 15 cigarettes/day. EKG atrial fibrillation with ventricular rate of 77 bpm Chest x-ray: COPD. Strandy atelectasis at the lung bases. More focal patchy atelectasis versus early infiltrate at the right base. WBC 5.8, hemoglobin 9.5, platelet count 247. Sodium 136, potassium 4.3, creatinine 0.88. BUN 20. Hemoglobin A1c 6.5. CAT scan of the brain revealed mild patchy burden of chronic small vessel isc hemic disease. No acute intracranial abnormality. Home cardiac medications: Eliquis 5 mg twice daily, aspirin 81 mg daily, Lipitor 40 mg at bedtime, Bumex 1 mg twice daily, Coreg 6.25 mg twice daily, Aldactone 25 mg daily. Echocardiogram performed on 11/11/2023 reveals technically suboptimal study. LV systolic function is normal. ALESHIA performed 01/05/2024 revealed normal LV systolic function. Intact interatrial septum with no shunt. Intact left atrial appendage with no thrombus. Normal intracardiac valves. No evidence of pericardial effusion. PCI of the mid LAD 10/17/2022 with IFR of 0.84. 01/29 Patient is seen today in follow-up. He states that he is feeling better overall. He continues to have a little bit of wheeze. Lower extremity edema is not improved. Patient remains in atrial fibrillation with controlled rate. Heart rate has been in the 70s and 80s, blood pressure 113/52, pulse ox 96% on room air. Repeat blood work reveals hemoglobin 9.1. Sodium 136, potassium 4.3, creatinine 0.91. Physical examination: Gen: This is a 68-year-old male in no acute distress VS: reviewed HEENT: Head is atraumatic, normocephalic. Pupils equal, round. Sclerae is anicteric. NECK: Supple. No JVD. LUNGS: Bilateral crackles. No intercostal retractions. HEART: Irregular rate and rhythm. No murmur. ABDOMEN: Soft No tenderness. EXTREMITIES: Minimal lower extremity edema. No calf tenderness. NEUROLOGICAL: Patient is awake, alert and oriented x3. Assessment: Generalized weakness and fatigue Permanent atrial fibrillation and controlled rate Coronary artery disease with previous stenting of the LAD Hypertension Dyslipidemia Mild aortic and mitral regurgitation Nonischemic cardiomyopathy COPD Diabetes mellitus type 2 insulin requiring Recent stroke Recent GI bleed with no symptoms at this time History of hepatitis C Plan: Continue patient's home cardiac medications Continue Eliquis 5 mg twice daily and monitor for bleeding. If patient has recurrence of bleeding, we will recommend Watchman procedure be investigated as an outpatient. Patient is currently stable from a cardiac perspective. Patient would benefit from physical therapy and rehab. No need to repeat echocardiogram as this was done in October Cardiology will sign off this case and follow on an as-needed basis. Please reconsult for any new concerns. Patient may follow-up in the office in one to [address] Montalvo. Nurse practitioner note has been reviewed, I agree with documented findings and plan of care. Patient was seen and examined. Objective - Vital Signs Vital signs: Vital Signs Temp 97.8 F 01/30/24 06:49 Pulse 75 01/30/24 07:44 Resp 16 01/30/24 06:49 BP 112/50 01/30/24 06:49 Pulse Ox 95 01/30/24 06:49 FiO2 Intake & Output 01/29/24 01/30/24 01/30/24 18:59 06:59 18:59 Intake Total 1200 Balance 1200 Intake: Oral 1200 Other: Voiding Method Toilet # Voids 1 2 # Bowel Movements 1 - Labs CBC & Chem 7: 01/30/24 08:15 01/30/24 08:15 Labs: Abnormal Lab Results - Last 24 Hours (Table) 01/29/24 01/29/24 01/29/24 Range/Units 07:30 07:30 12:30 RBC 3.13 L (4.40-5.60) X 10*6/uL Hgb 8.7 L (13.0-17.0) g/dL Hct 28.5 L (39.6-50.0) % MCHC 30.5 L (32.0-37.0) g/dL RDW 17.3 H (11.5-14.5) % Glucose 190 H (70-110) mg/dL POC Glucose (mg/dL) 113 H (70-110) mg/dL Albumin 3.7 L (3.8-4.9) g/dL Albumin/Globulin Ratio 1.37 L (1.60-3.17) Ratio 01/29/24 01/29/24 01/29/24 Range/Units 16:34 17:07 20:20 RBC 3.18 L (4.40-5.60) X 10*6/uL Hgb 9.0 L (13.0-17.0) g/dL Hct 29.5 L (39.6-50.0) % MCHC 30.6 L (32.0-37.0) g/dL RDW 16.9 H (11.5-14.5) % Glucose (70-110) mg/dL POC Glucose (mg/dL) 240 H 231 H (70-110) mg/dL Albumin (3.8-4.9) g/dL Albumin/Globulin Ratio (1.60-3.17) Ratio 01/30/24 Range/Units 06:52 RBC (4.40-5.60) X 10*6/uL Hgb (13.0-17.0) g/dL Hct (39.6-50.0) % MCHC (32.0-37.0) g/dL RDW (11.5-14.5) % Glucose (70-110) mg/dL POC Glucose (mg/dL) 228 H (70-110) mg/dL Albumin (3.8-4.9) g/dL Albumin/Globulin Ratio (1.60-3.17) Ratio
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
[2024-01-30 16:57] LABS: Glucose,Whole Blood 229 mg/dL (70-110)
--- NOTE | 2024-01-30 20:11 | MR ---
EXAMINATION TYPE: MR lumbar spine wo con DATE OF EXAM: 01/30/2024 7:30 PM CLINICAL INDICATION:Male, 68 years old with history of bilateral leg weakness.; PHH, Bilateral leg we akness COMPARISON: None TECHNIQUE: Multi planar, multi sequence imaging was performed utilizing: T1-weighted, T2-weighted, a nd turbo inversion recovery imaging of the lumbar spine. IV Contrast: None. FINDINGS: Alignment: The lumbar vertebral bodies have preserved heights and alignment. Cord: The conus medullaris and the distal spinal cord appear unremarkable with regards to their signa l intensity and morphology. Bones/Discs: No abnormal inversion recovery signal to suggest bony edema. Multilevel disc desiccation identified. Intravertebral hemangioma at the L1 level. T12-L1: No evidence of significant spinal canal stenosis or neural foraminal stenosis. L1-L2: No evidence of significant spinal canal stenosis or neural foraminal stenosis. Facet arthropat hy identified this level. L2-L3: Broad-based disc bulge is identified with moderate facet arthropathy. There is mild spinal can al stenosis. Mild bilateral neural foraminal stenosis present. L3-L4: Broad-based disc bulge is identified with facet arthropathy and hypertrophy ligamentum flavum. There is mild spinal canal stenosis. There is mild bilateral neural foraminal stenosis. L4-L5: Left foraminal disc protrusion is identified (see arrow). Facet arthropathy is identified this level. There is mild spinal canal/left lateral recess stenosis. There is mild right and severe left neural foraminal stenosis. L5-S1: Broad-based disc bulge is identified with facet arthropathy. There is mild spinal canal stenos is. Mild bilateral neural foraminal stenosis present. IMPRESSION: 1. Left foraminal disc herniation at the L4-L5 level creating severe left neural foraminal and mild spinal canal stenosis. 2. Additional multilevel degenerative change creating up to mild spinal and neural foraminal stenosi s.
[2024-01-30 20:19] LABS: Glucose,Whole Blood 197 mg/dL (70-110)
[2024-01-31 07:23] LABS: Glucose,Whole Blood 186 mg/dL (70-110)
[2024-01-31] MEDS ORDERED: diazePAM 5 MG TAB PO ONE (09:00)
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
[2024-01-31 10:25] LABS: HCT 29.6 % (39.6-50.0); HGB 9.1 g/dL (13.0-17.0); MCH 27.6 pg (27.0-32.0); MCHC 30.7 g/dL (32.0-37.0); MCV 89.7 FL (80.0-97.0); Mean Platelet Volume 9.8 FL (9.5-12.2); NRBC Per 100 WBC 0 X 10*3/uL (0.00-0.01); Neutrophils % (A) 55.4 %; Platelet Count 211 X 10*3/uL (140-440); RDW 17.3 % (11.5-14.5); WBC 6.66 X 10*3/uL (4.50-10.00)
[2024-01-31 10:26] LABS: Basophils # (A) 0.05 X 10*3/uL (0.00-0.10); Basophils % (A) 0.8 %; Eosinophils # (A) 0.23 X 10*3/uL (0.04-0.35); Eosinophils % (A) 3.5 %; Lymphocytes # (A) 1.77 X 10*3/uL (0.90-5.00); Lymphocytes % (A) 26.6 %; Monocytes # (A) 0.86 X 10*3/uL (0.20-1.00); Monocytes % (A) 12.9 %
[2024-01-31 10:44] LABS: Blood Urea Nitrogen 22.2 mg/dL (9.0-27.0); Carbon Dioxide 27.4 mmol/L (21.6-31.8); Chloride 99 mmol/L (96-109); Glucose 180 mg/dL (70-110); Potassium 4.1 mmol/L (3.5-5.5); Sodium 138 mmol/L (135-145)
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
[2024-01-31 12:17] LABS: Glucose,Whole Blood 311 mg/dL (70-110)
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
[2024-01-31 17:30] LABS: Glucose,Whole Blood 176 mg/dL (70-110)
[2024-01-31 20:16] LABS: Glucose,Whole Blood 223 mg/dL (70-110)
[2024-02-01 08:08] LABS: Glucose,Whole Blood 146 mg/dL (70-110)
--- NOTE | 2024-02-01 08:57 | P.PN ---
Progress Note - Text Progress Note Date: 02/01/24 Patient is seen and examined. He continues to have significant symptoms at his left leg particular with walking. The pain remains somewhat proximal in his thigh. It does not extend down to his foot or toes. He denies any new neurologic change or deficit. He is afebrile with stable vital signs. His neurologic exam is unchanged. He has sustained dorsiflexion plantarflexion EHL. When he ambulates he has to lock out his knee on the left. There is some hip flexion weakness which is unchanged. Assessment and plan Herniated nucleus pulposus L4-5 with left lower extremity weakness Difficulty ambulating Recent GI bleed and generalized weakness being managed by medicine service The patient has a disc nation L4-5 with left lower extremity symptoms. He is scheduled to have an epidural steroid injection L4-5 and I think that is appropriate. If he is not having benefit with his injections then I think he could consider surgical intervention for decompression. I discussed this with him again today. He is willing to have the injection as soon as they are available. The plan is for the injection tomorrow. It is okay for him to be discharged home after the epidural steroid injection and I can see him next week for recheck evaluation and monitor his progress as well.
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
[2024-02-01 12:20] LABS: Glucose,Whole Blood 166 mg/dL (70-110)
[2024-02-01 17:22] LABS: Glucose,Whole Blood 248 mg/dL (70-110)
[2024-02-01 20:19] LABS: Glucose,Whole Blood 255 mg/dL (70-110)
[2024-02-02 07:31] LABS: Glucose,Whole Blood 184 mg/dL (70-110)
[2024-02-02] MEDS: LACTATED RINGERS 1,000 ML IV ONE (09:20)
[2024-02-02 09:24] LABS: Glucose,Whole Blood 160 mg/dL (70-110)
[2024-02-02 09:32] VITALS: TEMP 97
[2024-02-02] MEDS ORDERED: fentaNYL (PF) 50 MCG/ML 2 ML AMP ONE (09:41)
[2024-02-02] MEDS ORDERED: MIDAZOLAM 2 MG/2 ML VIAL ONE (09:41)
[2024-02-02] MEDS ORDERED: DEXAMETHASONE SOD PHOSPHATE 10 MG/ML 1 ML VIAL ONE (09:44)
[2024-02-02] MEDS ORDERED: IOPAMIDOL M200 10 ML VIAL ONE (09:44)
--- NOTE | 2024-02-02 10:03 | P.PCN ---
Date of Procedure: 02/02/24 Description of Procedure: PREOPERATIVE DIAGNOSIS: Lumbar radiculopathy, and lumbar spondylosis without myelopathy. POSTOPERATIVE DIAGNOSIS: Lumbar radiculopathy and lumbar spondylosis without myelopathy. PROCEDURE: 1) left side L4-L5 transforaminal epidural steroid injection under fluoroscopic guidance, 2) Epidurogram SURGEON: Magda Langley ANESTHESIA: Local 1% lidocaine, and IV sedation: Versed 2 mg, and fentanyl 100 mcg EBL: None. Specimen removed: None Fluoroscopic imaging: saved to electronic medical record PROCEDURE INDICATION: The patient with continued lumbar pain with radiculopathy, and intervertebral disc disease without myelopathy that has failed to respond to adequate conservative management. PROCEDURE DESCRIPTION: The patient was seen and identified in the preoperative area. Risks, benefits, complications, and alternatives were discussed with the patient. The patient agreed to proceed with the procedure and signed the consent. IV was started, and vital signs were stable. Patient was taken to the OR and time out was completed. The patient was placed in the prone position on procedure table and a pillow was placed under the abdomen to reduce lumbar lordosis. The lumbosacral area was prepped with ChloraPrep 1 and draped in the usual sterile fashion. Critical pause was taken. Vital signs were closely monitored during the procedure. Using oblique fluoroscopy, the chin of the Celso dog L4 was identified, and the skin and deeper tissues just below was localized with 1% lidocaine. 22-guage 5-inch spinal needles were used for the procedure. The needles were guided by fluoroscopy just underneath the chin of the Celso dog of L4. Under AP fluoroscopy, the needles were advanced to the 6 o'clock position of the L4 pedicle. After negative aspiration of CSF and blood and with no paresthesias, 1 mL of [id number] contrast dye was injected anterior epidural spread and outlining of the L4 nerve root. 3 mL of block solution injected after negative aspiration. Block solution contained 10 mg of dexamethasone, 0.5 mL of 1% lidocaine preservative-free with 1.5 mL of normal saline preservative-free. Needle was removed intact, skin was cleansed, and bandages were applied. COMPLICATIONS: None. Preprocedure VAS: 3/10 Postprocedure VAS: 0/10 Can resume Eliquis today. DISPOSITION : The patient was placed in a supine position and transferred to the recovery area in a stable condition for observation and was discharged from the recovery room after meeting discharge criteria. Home discharge instructions given to the patient by the staff. The patient was reexamined prior to discharge. The patient will schedule follow-up visit in 4 weeks duration.
[2024-02-02] MEDS: IV FLUID CONTINUATION 1,000 ML IV ONE (10:07)
--- NOTE | 2024-02-02 10:24 | FL ---
EXAMINATION TYPE: FL guided pain mgmt statistic Intraoperative/procedural fluoroscopic services were provided. Total fluoroscopy time is 10 seconds with a total of 3 submitted images to PACS. Please see the operative/procedural note for further details. DAP: [id number] mGym2
[2024-02-02 10:31] VITALS: BP 159/61; PULSE 66; RESP 16
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
[2024-02-02] MEDS: LACTATED RINGERS 1,000 ML IV SCH (11:03)
[2024-02-02 11:04] LABS: Glucose,Whole Blood 142 mg/dL (70-110)
[2024-02-02 13:24] VITALS: BMI 29.6
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
--- NOTE | 2024-02-05 22:23 | CDI ---
Documentation Clarification Form Date: 02/05/2024 10:12:28 PM From: Daisy Tamayo Phone: Admit Date: 01/27/2024 01:32:00 PM Patient Name: Dennis Rubio Visit Number: [id number] Discharge Date: 02/02/2024 12:54:00 PM ATTENTION: The Clinical Documentation Specialists (CDI) and [facility] Coding Staff appreciate your assistance in clarifying documentation. Please respond to the clarification below the line at the bottom and electronically sign. The CDI & [facility] Coding staff will review the response and follow-up if needed. Please note: Queries are made part of the Legal Health Record. If you have any questions, please contact the author of this message via ITS. Dr. Bebeto Soto There is documentation of DMII ulceration per Progress Note 5/13. Additional specificity regarding the severity of the wound is requested. Patient history/risk factors: 68yo M, Anemia, recentGIB, CHRF on O2, COPD, chronic A Fib, CAD, NICM, DMII wulceration & PVD, HTN, HLD, OA, hypothyroidism, smoker, Hep Cwith chronicliver disease, Hx TBI, gaitdysfunction w Hx fall Clinical Indicators: Wound assessment: right foot PVD Treatment: chronic right foot dressing clean dry and intact. Please clarify the severity of the wound: [ X] Limited to breakdown of skin [ ] With fat layer exposed [ ] Other, Please specify [ ] Unable to determine (Template Last Revised: November 2020) MTDD
== END 2024-02-02 12:54 | disposition home or self-care (01) ==
LOC: EC 11:22 → 5NMEDONC 13:30 → UNDOADMOB 13:31 → 5NMEDONC 13:31 → OBSVTOIN 13:32 → INTOOBSV 13:32 → 5NMEDONC 14:19 → UNDODISIN 02-02 12:54
PROVIDERS: ADMIT Family Medicine; ATTEND Family Medicine
DX: M51.16 Intervertebral disc disorders with radiculopathy, lumbar region (principal); M51.06 Intervertebral disc disorders with myelopathy, lumbar region; M48.061 Spinal stenosis, lumbar region without neurogenic claudication; D64.9 Anemia, unspecified; J96.11 Chronic respiratory failure with hypoxia; J44.9 Chronic obstructive pulmonary disease, unspecified; I25.10 Atherosclerotic heart disease of native coronary artery without angina pectoris; I11.0 Hypertensive heart disease with heart failure; I50.9 Heart failure, unspecified; I48.21 Permanent atrial fibrillation; E78.5 Hyperlipidemia, unspecified; E11.42 Type 2 diabetes mellitus with diabetic polyneuropathy; R26.9 Unspecified abnormalities of gait and mobility; I42.8 Other cardiomyopathies; I08.0 Rheumatic disorders of both mitral and aortic valves; E11.51 Type 2 diabetes mellitus with diabetic peripheral angiopathy without gangrene; E11.621 Type 2 diabetes mellitus with foot ulcer; L97.519 Non-pressure chronic ulcer of other part of right foot with unspecified severity; E03.9 Hypothyroidism, unspecified; K76.0 Fatty (change of) liver, not elsewhere classified; F17.210 Nicotine dependence, cigarettes, uncomplicated; Z86.19 Personal history of other infectious and parasitic diseases; Z86.73 Personal history of transient ischemic attack (TIA), and cerebral infarction without residual deficits; Z95.5 Presence of coronary angioplasty implant and graft; Z99.81 Dependence on supplemental oxygen; Z79.4 Long term (current) use of insulin; Z79.01 Long term (current) use of anticoagulants; Z79.02 Long term (current) use of antithrombotics/antiplatelets; Z79.51 Long term (current) use of inhaled steroids; Z79.82 Long term (current) use of aspirin; Z79.84 Long term (current) use of oral hypoglycemic drugs; Z79.899 Other long term (current) drug therapy
CPT/HCPCS: 96360; 96361 ×2; 99285; 36415; 94640 ×14; 94760; 93005; 97161; 97166; 80053 ×2; 80048 ×3; 83605; 83735; 84484; 85025 ×5; 85027; 85610; 85730; 83036; 71046; 70450; 72148; 64483; G0378 ×7; J2250; J1100; J3010; Q9966

== ENCOUNTER 2024-04-14 15:28 | Emergency (ER) | payer MEDICARE ==
[2024-04-14 15:40] VITALS: TEMP 97.8
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
--- NOTE | 2024-04-14 17:21 | XR ---
EXAMINATION TYPE: XR chest 2V DATE OF EXAM: 04/14/2024 5:05 PM CLINICAL INDICATION:Male, 68 years old with history of SOB, productive cough; PHH COMPARISON: Chest radiographs from 01/27/2024 TECHNIQUE: XR chest 2V Frontal view of the chest. FINDINGS: Lungs/Pleura: There is flattening of the diaphragm with increased lucency of the lungs. No evidence o f pneumothorax, pleural effusion or focal consolidation. Pulmonary vascularity: Unremarkable. Heart/mediastinum: Cardiomediastinal silhouette is unremarkable. Musculoskeletal: No acute osseous pathology. IMPRESSION: 1. No acute cardiopulmonary disease process. 2. COPD changes.
[2024-04-14 17:23] VITALS: RESP 16
--- NOTE | 2024-04-14 17:53 | US ---
EXAMINATION TYPE: US venous doppler duplex LE LT DATE OF EXAM: 04/14/2024 5:31 PM COMPARISON: NONE CLINICAL INDICATION: Male, 68 years old with history of erythema, edema, pain; CHF on daily aspirin SIDE PERFORMED: Left TECHNIQUE: The lower extremity deep venous system is examined utilizing real time linear array sonog charan with graded compression, doppler sonography and color-flow sonography. VESSELS IMAGED: Common Femoral Vein Deep Femoral Vein Greater Saphenous Vein * Femoral Vein Popliteal Vein Small Saphenous Vein * Proximal Calf Veins (* superficial vessels) Right Leg: NA Left Leg: Negative for DVT IMPRESSION: Grayscale, color doppler, spectral doppler imaging performed of the deep veins of the lo wer extremities. There is normal flow, compressibility, vascular waveforms.
[2024-04-14 17:58] LABS: Anisocytosis Slight; Basophils % (A) 0 %; Eosinophils # (A) 0.1 k/uL (0-0.7); Eosinophils % (A) 1 %; HGB 13.8 gm/dL (13.0-17.5); Lymphocytes # (A) 1.6 k/uL (1.0-4.8); Lymphocytes % (A) 23 %; MCH 29.7 pg (25.0-35.0); MCHC 32.7 g/dL (31.0-37.0); MCV 90.8 fL (80.0-100.0); Mean Platelet Volume 8.1; Monocytes # (A) 0.6 k/uL (0-1.0); Monocytes % (A) 9 %; Neutrophils # (A) 4.2 k/uL (1.3-7.7); Neutrophils % (A) 63 %; Platelet Count 230 k/uL (150-450); RBC 4.63 m/uL (4.30-5.90); RDW 19.2 % (11.5-15.5); WBC 6.6 k/uL (3.8-10.6)
[2024-04-14 18:26] LABS: ALT 29 U/L (4-49); AST 33 U/L (17-59); African American GFR (CKD) >90 (>60 ml/min/1.73 sqM); Albumin 3.9 g/dL (3.5-5.0); Alkaline Phosphatase 130 U/L (38-126); Anion Gap 6 mmol/L; Blood Urea Nitrogen 18 mg/dL (9-20); Calcium 8.9 mg/dL (8.4-10.2); Carbon Dioxide 35 mmol/L (22-30); Chloride 96 mmol/L (98-107); Glucose 204 mg/dL (74-99); Magnesium 1.5 mg/dL (1.6-2.3); Non-African American GFR(CKD) >90 (>60 ml/min/1.73 sqM); Potassium 3.3 mmol/L (3.5-5.1); Sodium 137 mmol/L (137-145); Total Bilirubin 0.5 mg/dL (0.2-1.3); Total Protein 6.9 g/dL (6.3-8.2)
[2024-04-14 18:32] LABS: NT-Pro-B-Type Natriuretic Pept 256 pg/mL
[2024-04-14] MEDS: cefTRIAXone IN SWFI 1,000 MG/10 ML SYRINGE IVP STA (18:59)
[2024-04-14] MEDS: POTASSIUM CHLORIDE ER 20 MEQ TAB.ER PO STA (18:59)
[2024-04-14 19:30] VITALS: BP 92/49; PULSE 72
== END 2024-04-14 19:31 | disposition home or self-care (01) ==
LOC: EC 15:28
DX: S80.812A Abrasion, left lower leg, initial encounter (principal); L03.116 Cellulitis of left lower limb; E87.6 Hypokalemia; E11.65 Type 2 diabetes mellitus with hyperglycemia; F17.200 Nicotine dependence, unspecified, uncomplicated; Z79.4 Long term (current) use of insulin; Z79.84 Long term (current) use of oral hypoglycemic drugs; X58.XXXA Exposure to other specified factors, initial encounter
CPT/HCPCS: 99284; 96374; 36415; 83880; 80053; 83735; 85025; 71046; 93971; J0696

== ENCOUNTER 2024-04-20 13:46 | Inpatient (IN) | payer MEDICARE ==
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
--- NOTE | 2024-04-20 15:30 | XR ---
EXAMINATION TYPE: XR chest 2V DATE OF EXAM: 04/20/2024 COMPARISON: 04/14/2024 HISTORY: 68 year-old male shortness of breath, difficulty breathing TECHNIQUE: AP and lateral views FINDINGS: Heart normal size. Hyperinflation. Patchy bibasilar opacities medially at the right. There is no pleu ral effusion. IMPRESSION: COPD with patchy bibasilar opacity/mild infiltrates.
[2024-04-20 15:42] LABS: INR 1.1 (<1.2); Partial Thromboplastin Time 27.2 sec (22.0-30.0); Prothrombin Time 11.5 sec (10.0-12.5)
[2024-04-20 15:43] LABS: ALT 26 U/L (4-49); AST 36 U/L (17-59); African American GFR (CKD) >90 (>60 ml/min/1.73 sqM); Albumin 3.7 g/dL (3.5-5.0); Alkaline Phosphatase 112 U/L (38-126); Anion Gap 4 mmol/L; Blood Urea Nitrogen 19 mg/dL (9-20); Calcium 9.7 mg/dL (8.4-10.2); Carbon Dioxide 35 mmol/L (22-30); Chloride 94 mmol/L (98-107); Glucose 238 mg/dL (74-99); Magnesium 1.5 mg/dL (1.6-2.3); Non-African American GFR(CKD) 88 (>60 ml/min/1.73 sqM); Potassium 3.4 mmol/L (3.5-5.1); Sodium 133 mmol/L (137-145); Total Protein 6.6 g/dL (6.3-8.2)
[2024-04-20 15:50] LABS: Anisocytosis Slight; Basophils % (A) 0 %; Eosinophils # (A) 0.1 k/uL (0-0.7); Eosinophils % (A) 1 %; HGB 13.3 gm/dL (13.0-17.5); Lymphocytes # (A) 0.7 k/uL (1.0-4.8); Lymphocytes % (A) 13 %; MCH 30.3 pg (25.0-35.0); MCHC 34.2 g/dL (31.0-37.0); MCV 88.6 fL (80.0-100.0); Mean Platelet Volume 8.2; Monocytes # (A) 0.4 k/uL (0-1.0); Monocytes % (A) 7 %; Neutrophils # (A) 4.2 k/uL (1.3-7.7); Neutrophils % (A) 78 %; Platelet Count 149 k/uL (150-450); RDW 19.2 % (11.5-15.5); WBC 5.3 k/uL (3.8-10.6)
[2024-04-20 16:13] LABS: NT-Pro-B-Type Natriuretic Pept 141 pg/mL
[2024-04-20] MEDS: ONDANSETRON 4 MG/2 ML VIAL IVP STA (16:44)
[2024-04-20] MEDS: methylPREDNISolone SOD SUCCI 125 MG/2 ML VIAL IV STA (16:49)
[2024-04-20] MEDS: METOCLOPRAMIDE 5 MG/ML 2 ML VIAL IVP STA (17:59)
[2024-04-20] MEDS: MAGNESIUM SULFATE-D5W PMX 1 GM in DEXTROSE/WATER 1 100ML.BAG IVPB SCH (18:07)
[2024-04-20] MEDS: diphenhydrAMINE 50 MG/ML 1 ML VIAL IVP STA (18:11)
[2024-04-20] MEDS: SYMBICORT 80-4.5 MCG INHALER INHALATION SCH (21:44)
[2024-04-20] MEDS: APIXABAN 5 MG TAB PO SCH (21:51)
[2024-04-20] MEDS: ONDANSETRON 4 MG/2 ML VIAL IVP PRN (22:20)
[2024-04-20 22:35] LABS: Glucose,Whole Blood 298 mg/dL (70-110)
[2024-04-20] MEDS: ATORVASTATIN 40 MG TAB PO SCH (22:55)
[2024-04-20] MEDS: carvediloL 6.25 MG TAB PO SCH (23:05)
[2024-04-20] MEDS: traMADol 50 MG TAB PO SCH (23:06)
[2024-04-20] MEDS: TAMSULOSIN 0.4 MG CAP.ER.24H PO SCH (23:06)
[2024-04-20] MEDS: BUMETANIDE 1 MG TAB PO SCH (23:06)
[2024-04-20] MEDS: GABAPENTIN 400 MG CAP PO SCH (23:06)
[2024-04-20] MEDS: MONTELUKAST 10 MG TAB PO SCH (23:06)
[2024-04-20] MEDS: INSULIN DETEMIR (LEVEMIR) 100 UNIT/ML SYR SQ SCH (23:14)
[2024-04-21] MEDS: ALBUTEROL HFA INHALER INHALATION PRN (07:47)
[2024-04-21] MEDS ORDERED: IPRATROPIUM 0.5 MG/2.5 ML NEBU INHALATION SCH (08:00)
[2024-04-21 08:24] LABS: Anisocytosis Slight; Basophils % (A) 0 %; Eosinophils # (A) 0.1 k/uL (0-0.7); Eosinophils % (A) 1 %; HCT 38.8 % (39.0-53.0); Lymphocytes # (A) 0.7 k/uL (1.0-4.8); Lymphocytes % (A) 10 %; MCH 30.2 pg (25.0-35.0); MCHC 33.5 g/dL (31.0-37.0); Mean Platelet Volume 7.5; Monocytes # (A) 0.3 k/uL (0-1.0); Monocytes % (A) 4 %; Neutrophils # (A) 5.9 k/uL (1.3-7.7); Neutrophils % (A) 84 %; Platelet Count 156 k/uL (150-450); RBC 4.31 m/uL (4.30-5.90); RDW 19.2 % (11.5-15.5)
[2024-04-21 08:36] LABS: African American GFR (CKD) >90 (>60 ml/min/1.73 sqM); Anion Gap 6 mmol/L; Blood Urea Nitrogen 23 mg/dL (9-20); Calcium 9.1 mg/dL (8.4-10.2); Carbon Dioxide 34 mmol/L (22-30); Chloride 95 mmol/L (98-107); Glucose 263 mg/dL (74-99); Non-African American GFR(CKD) >90 (>60 ml/min/1.73 sqM); Potassium 3.6 mmol/L (3.5-5.1); Sodium 135 mmol/L (137-145)
[2024-04-21] MEDS: FINASTERIDE 5 MG TAB PO SCH (09:44)
[2024-04-21] MEDS: ASPIRIN 81 MG PO SCH (09:44)
[2024-04-21] MEDS: PIOGLITAZONE 15 MG TAB PO SCH (09:44)
[2024-04-21] MEDS: SPIRONOLACTONE 25 MG TAB PO SCH (09:44)
[2024-04-21] MEDS: PANTOPRAZOLE 40 MG TABLET PO SCH (09:45)
[2024-04-21] MEDS: methylPREDNISolone SOD SUCCI 125 MG/2 ML VIAL IV SCH (09:45)
--- NOTE | 2024-04-21 11:24 | CT ---
EXAMINATION TYPE: CT chest angio for PE CT DLP: 620.7 mGycm, Automated exposure control for dose reduction was used. DATE OF EXAM: 04/21/2024 9:25 AM COMPARISON: Same day chest x-ray CLINICAL INDICATION:Male, 68 years old with history of chest pain, covid, hypoxia; Chest pain, hypoxi a, Covid + TECHNIQUE/CONTRAST: CTA scan of the thorax is performed with IV Contrast, patient injected with 100 mL of Isovue 370, MIP images are created and reviewed these are created on a separate workstation.. FINDINGS: There is adequate contrast bolus and timing. PULMONARY ARTERIES: There is no evidence for a filling defect within the pulmonary vasculature to sug gest acute pulmonary embolism. Pulmonary trunk is normal in size. Trunk measures 2.9 CM. AORTA: Mild calcification along the arch. No dissection. Aorta is nonaneurysmal. HEART: Mild cardiom egaly.Moderate to severe coronary artery calcification and/or stents. No appreciable pericardial eff usion. There is prominent pericardial fat. LOWER NECK: No significant findings. Grossly unremarkable thyroid. MEDIASTINUM: No enlarged nodes by CT size criteria. SOFT TISSUES/AXILLA: Bilateral gynecomastia like changes, right more than left. No axillary adenopath y. LUNGS/ PLEURA: There are mild bibasilar subsegmental atelectatic changes. No significant pleural effu hammad, pneumothorax, or evidence of lung consolidation. No appreciable groundglass infiltrates. Mild p ulmonary emphysematous changes in the apices, left greater than right. Mild pleural thickening/scarri ng along the left anterior lung. AIRWAY: Central airways are patent. MUSCULOSKELETAL: No acute osseous abnormality. Moderate disc degeneration changes are present throug hout the included thoracolumbar spine. UPPER ABDOMEN: Cirrhotic hepatic morphology. Some reflux of contrast into the hepatic level IVC and h epatic veins suggestive of right heart insufficiency. No mass of the visualized adrenals. IMPRESSION: 1. No evidence of pulmonary embolism. 2. Minimal bibasilar subsegmental atelectasis. No focal lung consolidation is seen. 3. Mild apical emphysematous changes. 4. Mild cardiomegaly with findings suggesting right heart insufficiency. 5. Moderate to severe coronary arterial calcifications. 6. Cirrhotic hepatic morphology.
--- NOTE | 2024-04-21 11:48 | XR ---
EXAMINATION TYPE: XR chest 2V DATE OF EXAM: 04/21/2024 8:55 AM CLINICAL INDICATION:Male, 68 years old with history of pneumonia; [facility] COMPARISON: 04/20/2024 TECHNIQUE: XR chest 2V. Frontal and lateral views of the chest.. FINDINGS: No indwelling lines are seen. Heart appears mildly enlarged. Unremarkable mediastinal contours. No pulmonary vascular congestion or edema. No focal lung consolidation, sizable effusion, or evidence of pneumothorax. Lungs appear mildly hyper inflated with mild interstitial coarsening suggesting mild emphysema/COPD. Mild diffuse osseous degenerative changes. No evidence of acute bony pathology. IMPRESSION: 1. Mild COPD changes suggested, without evidence of acute superimposed airspace disease. 2. Mild cardiomegaly without evidence of CHF.
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
[2024-04-21 17:07] LABS: Glucose,Whole Blood 450 mg/dL (70-110)
[2024-04-21] MEDS: INSULIN ASPART (NovoLOG) 100 UNIT/ML VIAL SQ SCH (17:14)
--- NOTE | 2024-04-21 18:17 | P.PN ---
Subjective Progress Note Date: 04/21/24 68-year-old male presents to the emergency department reporting shortness of breath. Patient was seen in the emergency department earlier this week and discharged home on clindamycin for lower extremity cellulitis. States that after taking the medications he became short of breath. He thought it was due to this new antibiotic. He does have a history of COPD and uses his nebulizer with DuoNebs medication 5-7 times per day. He has been doing this daily without any improvement in his breathing. He saw his primary care today to discuss this possible medication reaction. They swabbed him and found him to be COVID- positive. He states he has been nauseated. He has had some chest pain. No history of coronary disease. No fevers but admits chills. Admits constipation no diarrhea. No other alleviating, precipitating or modifying factors Bladder completed in ED reveals WBC 5.9, hemoglobin of 13.3 and platelet count of 149, sodium 133, potassium 3.4, BUNs/creatinine of 19/0.89 and blood glucose of 238 EKG demonstrates A-fib with a rate of 87. QRS 108. QTc of 410. No acute ST segment elevation or depression Objective - Vital Signs Vital signs: Vital Signs Temp 97.2 F L 04/20/24 19:47 Pulse 100 04/21/24 09:00 Resp 19 04/21/24 09:00 BP 132/67 04/21/24 09:00 Pulse Ox 98 04/21/24 09:00 FiO2 Intake & Output 04/20/24 04/21/24 04/21/24 18:59 06:59 18:59 Output Total 600 Balance -600 Weight 113.398 kg Output: Urine 400 Emesis 200 Other: Voiding Method Urinal - Exam General: Well-appearing, nontoxic, no acute distress. Head: Normocephalic, atraumatic Eyes: PERRLA, EOMI ENT: Airway patent Chest: Nonlabored breathing Skin: No visual rash, normal skin tone Neuro: Alert and oriented 3 Musculoskeletal: No gross abnormalities - Labs CBC & Chem 7: 04/21/24 08:01 04/21/24 08:01 Labs: Abnormal Lab Results - Last 24 Hours (Table) 04/20/24 04/20/24 04/20/24 Range/Units 14:46 14:46 14:46 Hct (39.0-53.0) % RDW 19.2 H (11.5-15.5) % Plt Count 149 L (150-450) k/uL Lymphocytes # 0.7 L (1.0-4.8) k/uL Sodium 133 L (137-145) mmol/L Potassium 3.4 L (3.5-5.1) mmol/L Chloride 94 L (98-107) mmol/L Carbon Dioxide 35 H (22-30) mmol/L BUN (9-20) mg/dL Glucose 238 H (74-99) mg/dL POC Glucose (mg/dL) (70-110) mg/dL Magnesium 1.5 L (1.6-2.3) mg/dL SARS-CoV-2 (PCR) Detected A (Not Detectd) 04/20/24 04/21/24 04/21/24 Range/Units 22:34 08:01 08:01 Hct 38.8 L (39.0-53.0) % RDW 19.2 H (11.5-15.5) % Plt Count (150-450) k/uL Lymphocytes # 0.7 L (1.0-4.8) k/uL Sodium 135 L (137-145) mmol/L Potassium (3.5-5.1) mmol/L Chloride 95 L (98-107) mmol/L Carbon Dioxide 34 H (22-30) mmol/L BUN 23 H (9-20) mg/dL Glucose 263 H (74-99) mg/dL POC Glucose (mg/dL) 298 H (70-110) mg/dL Magnesium (1.6-2.3) mg/dL SARS-CoV-2 (PCR) (Not Detectd) Assessment and Plan Assessment: 1. Acute COVID-19 infection/hypoxia -Patient is saturating above 92% on O2 at 2 L per nasal cannula; we will titrate up wean as able -- Ordered inflammatory markers and treat as needed -Consult pulmonary service 2. Acute exacerbation COPD; patient is currently on methylprednisone 40 mg IV every 8 hours; continue with home inhaler therapy 3. Intractable nausea and vomiting likely related to COVID-19 viral infection 4. Electrolyte imbalance; hypomagnesemia/hypokalemia 5. Cellulitis lower extremities; chronic wounds -Has been placed on IV Rocephin; will consult ID for further recommendations 6. Hyperglycemia/uncontrolled diabetes mellitus with long-term insulin use; will monitor Accu-Cheks ACHS with insulin sliding scale; resume home dose of Lantus 20 units SQ nightly; Actos 15 mg daily 7. Hypertension; Aldactone 50 mg daily, Coreg 6.25 mg twice daily 8. Hyperlipidemia; Lipitor 40 mg p.o. nightly 9. BPH; Flomax 0.4 mg twice daily DVT prophylaxis; SCDs/subcu heparin CODE STATUS; full code
[2024-04-21 20:54] LABS: Glucose,Whole Blood 412 mg/dL (70-110)
[2024-04-21] MEDS ORDERED: DEXTROSE 50% SYRINGE 50 ML IVP PRN ×2 (21:40)
[2024-04-21 23:57] LABS: Glucose,Whole Blood 336 mg/dL (70-110)
[2024-04-22] MEDS ORDERED: PIOGLITAZONE 15 MG TAB ONE (00:01)
[2024-04-22] MEDS ORDERED: ALBUTEROL HFA INHALER INHALATION ONE (00:01)
[2024-04-22] MEDS ORDERED: SODIUM CHLORIDE 0.9% 100 ML BAG IV ONE (00:01)
[2024-04-22] MEDS ORDERED: SYMBICORT 160-4.5 MCG INHALER INHALATION ONE (00:01)
[2024-04-22] MEDS ORDERED: SODIUM CHLORIDE 0.9% 100 ML BAG ONE (00:01)
[2024-04-22] MEDS ORDERED: INSULIN REGULAR 100 UNIT/ML VIAL (IV) ONE (00:01)
[2024-04-22 01:06] LABS: Glucose,Whole Blood 383 mg/dL (70-110)
[2024-04-22] MEDS: INSULIN REGULAR 100 UNIT in SODIUM CHLORIDE 0.9% 100 ML IV SCH (01:13)
[2024-04-22 02:05] LABS: Glucose,Whole Blood 357 mg/dL (70-110)
[2024-04-22 03:06] LABS: Glucose,Whole Blood 290 mg/dL (70-110)
[2024-04-22 04:12] LABS: Glucose,Whole Blood 195 mg/dL (70-110)
[2024-04-22 04:40] VITALS: BP 120/66; PULSE 67; RESP 18; TEMP 98.1
[2024-04-22 05:11] LABS: Glucose,Whole Blood 183 mg/dL (70-110)
[2024-04-22 06:06] LABS: Glucose,Whole Blood 210 mg/dL (70-110)
[2024-04-22 07:06] LABS: Glucose,Whole Blood 296 mg/dL (70-110)
[2024-04-22 08:20] LABS: Glucose,Whole Blood 362 mg/dL (70-110)
[2024-04-22 09:06] LABS: Glucose,Whole Blood 311 mg/dL (70-110)
[2024-04-22] MEDS ORDERED: FINASTERIDE 5 MG TAB ONE (09:55)
[2024-04-22] MEDS ORDERED: BUMETANIDE 1 MG TAB ONE ×2 (09:55→21:05)
[2024-04-22] MEDS ORDERED: SPIRONOLACTONE 25 MG TAB ONE (09:55)
[2024-04-22] MEDS ORDERED: GABAPENTIN 400 MG CAP ONE ×3 (09:56→21:06)
[2024-04-22] MEDS ORDERED: traMADol 50 MG TAB ONE ×3 (09:56→21:06)
[2024-04-22] MEDS ORDERED: ASPIRIN 81 MG ONE (09:57)
[2024-04-22] MEDS ORDERED: methylPREDNISolone SOD SUCCI 125 MG/2 ML VIAL ONE ×2 (09:57→16:07)
[2024-04-22] MEDS ORDERED: PANTOPRAZOLE 40 MG TABLET PO ONE (09:57)
[2024-04-22] MEDS ORDERED: TAMSULOSIN 0.4 MG CAP.ER.24H PO ONE ×2 (09:57→21:06)
[2024-04-22] MEDS ORDERED: APIXABAN 5 MG TAB ONE ×2 (09:58→21:05)
[2024-04-22] MEDS ORDERED: cefTRIAXone 2 GM VIAL ONE (09:58)
[2024-04-22] MEDS ORDERED: carvediloL 6.25 MG TAB ONE ×2 (09:58→21:07)
[2024-04-22] MEDS ORDERED: SODIUM CHLORIDE 0.9% 50 ML ONE (09:58)
[2024-04-22 10:08] LABS: Glucose,Whole Blood 231 mg/dL (70-110)
[2024-04-22 11:02] LABS: Glucose,Whole Blood 160 mg/dL (70-110)
[2024-04-22 12:08] LABS: Glucose,Whole Blood 108 mg/dL (70-110)
[2024-04-22 13:05] LABS: Glucose,Whole Blood 279 mg/dL (70-110)
[2024-04-22 14:08] LABS: Glucose,Whole Blood 303 mg/dL (70-110)
[2024-04-22 15:05] LABS: Glucose,Whole Blood 300 mg/dL (70-110)
[2024-04-22 16:05] LABS: Glucose,Whole Blood 296 mg/dL (70-110)
[2024-04-22 17:04] LABS: Glucose,Whole Blood 340 mg/dL (70-110)
[2024-04-22 18:05] LABS: Glucose,Whole Blood 380 mg/dL (70-110)
[2024-04-22 19:03] LABS: Glucose,Whole Blood 494 mg/dL (70-110)
[2024-04-22 20:04] LABS: Glucose,Whole Blood 427 mg/dL (70-110)
[2024-04-22 21:05] LABS: Glucose,Whole Blood 254 mg/dL (70-110)
[2024-04-22] MEDS ORDERED: MONTELUKAST 10 MG TAB ONE (21:06)
[2024-04-22] MEDS ORDERED: ATORVASTATIN 40 MG TAB ONE (21:06)
[2024-04-22 22:03] LABS: Glucose,Whole Blood 250 mg/dL (70-110)
[2024-04-22 23:03] LABS: Glucose,Whole Blood 216 mg/dL (70-110)
[2024-04-23] MEDS ORDERED: ALBUTEROL HFA INHALER INHALATION ONE (00:01)
[2024-04-23] MEDS ORDERED: SODIUM CHLORIDE 0.9% 50 ML BAG ONE (00:01)
[2024-04-23] MEDS ORDERED: INSULIN DETEMIR (LEVEMIR) 100 UNIT/ML SYR SQ ONE (00:01)
[2024-04-23] MEDS ORDERED: SODIUM CHLORIDE 0.9% 100 ML BAG ONE (00:01)
[2024-04-23] MEDS ORDERED: SYMBICORT 160-4.5 MCG INHALER INHALATION ONE (00:01)
[2024-04-23] MEDS ORDERED: INSULIN REGULAR 100 UNIT/ML VIAL (IM/SQ) ONE (00:01)
[2024-04-23 00:02] LABS: Glucose,Whole Blood 203 mg/dL (70-110)
[2024-04-23] MEDS ORDERED: methylPREDNISolone SOD SUCCI 125 MG/2 ML VIAL ONE ×3 (00:03→22:48)
[2024-04-23 01:01] LABS: Glucose,Whole Blood 167 mg/dL (70-110)
[2024-04-23 02:00] LABS: Glucose,Whole Blood 160 mg/dL (70-110)
[2024-04-23 03:03] LABS: Glucose,Whole Blood 189 mg/dL (70-110)
[2024-04-23 04:00] LABS: Glucose,Whole Blood 182 mg/dL (70-110)
[2024-04-23 05:03] LABS: Glucose,Whole Blood 134 mg/dL (70-110)
[2024-04-23 06:05] LABS: Glucose,Whole Blood 219 mg/dL (70-110)
[2024-04-23 07:08] LABS: Glucose,Whole Blood 272 mg/dL (70-110)
[2024-04-23 08:11] LABS: Glucose,Whole Blood 258 mg/dL (70-110)
[2024-04-23] MEDS ORDERED: SPIRONOLACTONE 25 MG TAB ONE (08:35)
[2024-04-23] MEDS ORDERED: traMADol 50 MG TAB ONE ×3 (08:36→22:47)
[2024-04-23] MEDS ORDERED: BUMETANIDE 1 MG TAB ONE ×2 (08:36→22:47)
[2024-04-23] MEDS ORDERED: FINASTERIDE 5 MG TAB ONE (08:36)
[2024-04-23] MEDS ORDERED: GABAPENTIN 400 MG CAP ONE ×3 (08:36→22:47)
[2024-04-23] MEDS ORDERED: PANTOPRAZOLE 40 MG TABLET PO ONE (08:36)
[2024-04-23] MEDS ORDERED: carvediloL 6.25 MG TAB ONE ×2 (08:37→22:48)
[2024-04-23] MEDS ORDERED: cefTRIAXone 2 GM VIAL ONE (08:37)
[2024-04-23] MEDS ORDERED: TAMSULOSIN 0.4 MG CAP.ER.24H PO ONE ×2 (08:37→22:48)
[2024-04-23] MEDS ORDERED: SODIUM CHLORIDE 0.9% 50 ML ONE (08:37)
[2024-04-23] MEDS ORDERED: ASPIRIN 81 MG ONE (08:37)
[2024-04-23] MEDS ORDERED: APIXABAN 5 MG TAB ONE ×2 (08:37→22:48)
[2024-04-23 09:03] LABS: Glucose,Whole Blood 199 mg/dL (70-110)
[2024-04-23 10:16] LABS: Glucose,Whole Blood 124 mg/dL (70-110)
[2024-04-23 11:06] LABS: Glucose,Whole Blood 109 mg/dL (70-110)
[2024-04-23 12:05] LABS: Glucose,Whole Blood 127 mg/dL (70-110)
[2024-04-23 16:33] LABS: Glucose,Whole Blood 391 mg/dL (70-110)
[2024-04-23] MEDS ORDERED: INSULIN ASPART (NovoLOG) 100 UNIT/ML VIAL SQ ONE ×2 (17:07→22:51)
[2024-04-23 20:44] LABS: Glucose,Whole Blood 344 mg/dL (70-110)
[2024-04-23] MEDS ORDERED: MONTELUKAST 10 MG TAB ONE (22:47)
[2024-04-23] MEDS ORDERED: ATORVASTATIN 40 MG TAB ONE (22:48)
[2024-04-23] MEDS ORDERED: ONDANSETRON 4 MG/2 ML VIAL ONE (22:50)
[2024-04-24] MEDS ORDERED: ALBUTEROL HFA INHALER INHALATION ONE ×2 (00:01→08:00)
[2024-04-24] MEDS ORDERED: SYMBICORT 80-4.5 MCG INHALER INHALATION ONE ×3 (00:01→23:59)
[2024-04-24] MEDS ORDERED: INSULIN ASPART (NovoLOG) 100 UNIT/ML VIAL SQ ONE ×3 (00:01→16:56)
[2024-04-24] MEDS ORDERED: INSULIN DETEMIR (LEVEMIR) 100 UNIT/ML SYR SQ ONE (00:01)
[2024-04-24] MEDS ORDERED: SODIUM CHLORIDE 0.9% 100 ML BAG IV ONE (00:01)
[2024-04-24 02:53] LABS: Glucose,Whole Blood 362 mg/dL (70-110)
[2024-04-24] MEDS ORDERED: QUEtiapine 50 MG TAB ONE ×2 (03:41→23:21)
[2024-04-24 06:25] LABS: Glucose,Whole Blood 292 mg/dL (70-110)
[2024-04-24] MEDS ORDERED: BUMETANIDE 1 MG TAB ONE (09:35)
[2024-04-24] MEDS ORDERED: FINASTERIDE 5 MG TAB ONE (09:35)
[2024-04-24] MEDS ORDERED: SPIRONOLACTONE 25 MG TAB ONE (09:35)
[2024-04-24] MEDS ORDERED: GABAPENTIN 400 MG CAP ONE ×3 (09:35→23:19)
[2024-04-24] MEDS ORDERED: PANTOPRAZOLE 40 MG TABLET PO ONE (09:36)
[2024-04-24] MEDS ORDERED: TAMSULOSIN 0.4 MG CAP.ER.24H PO ONE ×2 (09:36→23:21)
[2024-04-24] MEDS ORDERED: traMADol 50 MG TAB ONE ×3 (09:36→23:20)
[2024-04-24] MEDS ORDERED: predniSONE 20 MG TAB ONE (09:36)
[2024-04-24] MEDS ORDERED: ASPIRIN 81 MG ONE (09:36)
[2024-04-24] MEDS ORDERED: SODIUM CHLORIDE 0.9% 50 ML ONE (09:37)
[2024-04-24] MEDS ORDERED: APIXABAN 5 MG TAB ONE ×2 (09:37→23:21)
[2024-04-24] MEDS ORDERED: carvediloL 6.25 MG TAB ONE ×2 (09:37→23:21)
[2024-04-24] MEDS ORDERED: cefTRIAXone 2 GM VIAL ONE (09:37)
[2024-04-24 09:53] LABS: Glucose,Whole Blood 278 mg/dL (70-110)
[2024-04-24 11:50] LABS: Glucose,Whole Blood 427 mg/dL (70-110)
[2024-04-24 16:41] LABS: Glucose,Whole Blood 308 mg/dL (70-110)
[2024-04-24 20:27] LABS: Glucose,Whole Blood 351 mg/dL (70-110)
[2024-04-24] MEDS ORDERED: MONTELUKAST 10 MG TAB ONE (23:20)
[2024-04-24] MEDS ORDERED: methylPREDNISolone SOD SUCCI 125 MG/2 ML VIAL ONE (23:20)
[2024-04-24] MEDS ORDERED: ONDANSETRON 4 MG/2 ML VIAL ONE (23:20)
[2024-04-24] MEDS ORDERED: ATORVASTATIN 40 MG TAB ONE (23:20)
[2024-04-25] MEDS ORDERED: INSULIN DETEMIR (LEVEMIR) 100 UNIT/ML SYR SQ ONE (00:01)
[2024-04-25] MEDS ORDERED: SYMBICORT 80-4.5 MCG INHALER INHALATION ONE ×2 (00:01→08:00)
[2024-04-25] MEDS ORDERED: INSULIN ASPART (NovoLOG) 100 UNIT/ML VIAL SQ ONE ×4 (00:01→16:35)
[2024-04-25] MEDS ORDERED: SODIUM CHLORIDE 0.9% 50 ML BAG ONE (00:01)
[2024-04-25] MEDS ORDERED: ALBUTEROL HFA INHALER INHALATION ONE ×2 (00:01→08:00)
[2024-04-25 00:13] LABS: Glucose,Whole Blood 392 mg/dL (70-110)
[2024-04-25] MEDS ORDERED: QUEtiapine 50 MG TAB ONE ×2 (00:25→20:55)
[2024-04-25 06:13] LABS: Glucose,Whole Blood 224 mg/dL (70-110)
[2024-04-25] MEDS ORDERED: BUMETANIDE 1 MG TAB ONE ×2 (09:51→20:42)
[2024-04-25] MEDS ORDERED: SPIRONOLACTONE 25 MG TAB ONE (09:51)
[2024-04-25] MEDS ORDERED: GABAPENTIN 400 MG CAP ONE ×3 (09:52→20:42)
[2024-04-25] MEDS ORDERED: PANTOPRAZOLE 40 MG TABLET PO ONE (09:52)
[2024-04-25] MEDS ORDERED: FINASTERIDE 5 MG TAB ONE (09:52)
[2024-04-25] MEDS ORDERED: traMADol 50 MG TAB ONE ×3 (09:52→20:43)
[2024-04-25] MEDS ORDERED: APIXABAN 5 MG TAB ONE ×2 (09:53→20:43)
[2024-04-25] MEDS ORDERED: TAMSULOSIN 0.4 MG CAP.ER.24H PO ONE ×2 (09:53→20:55)
[2024-04-25] MEDS ORDERED: carvediloL 6.25 MG TAB ONE ×2 (09:53→16:35)
[2024-04-25] MEDS ORDERED: ASPIRIN 81 MG ONE (09:53)
[2024-04-25] MEDS ORDERED: cefTRIAXone 2 GM VIAL ONE (09:53)
[2024-04-25 11:46] LABS: Glucose,Whole Blood 315 mg/dL (70-110)
[2024-04-25 16:32] LABS: Glucose,Whole Blood 342 mg/dL (70-110)
[2024-04-25] MEDS ORDERED: PSYLLIUM HUSK 100% 6 GM PACKET PO ONE ×2 (16:39)
[2024-04-25 20:22] LABS: Glucose,Whole Blood 198 mg/dL (70-110)
[2024-04-25] MEDS ORDERED: ATORVASTATIN 40 MG TAB ONE (20:43)
[2024-04-25] MEDS ORDERED: MONTELUKAST 10 MG TAB ONE (20:54)
[2024-04-26] MEDS ORDERED: INSULIN ASPART (NovoLOG) 100 UNIT/ML VIAL SQ ONE ×2 (00:01→16:37)
[2024-04-26] MEDS ORDERED: ALBUTEROL HFA INHALER INHALATION ONE (00:01)
[2024-04-26] MEDS ORDERED: SODIUM CHLORIDE 0.9% 50 ML BAG ONE (00:01)
[2024-04-26] MEDS ORDERED: SYMBICORT 80-4.5 MCG INHALER INHALATION ONE (00:01)
[2024-04-26 06:10] LABS: Glucose,Whole Blood 181 mg/dL (70-110)
[2024-04-26] MEDS ORDERED: SPIRONOLACTONE 25 MG TAB ONE ×2 (08:22→08:33)
[2024-04-26] MEDS ORDERED: FINASTERIDE 5 MG TAB ONE (08:23)
[2024-04-26] MEDS ORDERED: BUMETANIDE 1 MG TAB ONE ×2 (08:23→20:07)
[2024-04-26] MEDS ORDERED: PANTOPRAZOLE 40 MG TABLET PO ONE (08:24)
[2024-04-26] MEDS ORDERED: GABAPENTIN 400 MG CAP ONE ×3 (08:24→20:07)
[2024-04-26] MEDS ORDERED: ASPIRIN 81 MG ONE (08:24)
[2024-04-26] MEDS ORDERED: TAMSULOSIN 0.4 MG CAP.ER.24H PO ONE ×2 (08:24→20:08)
[2024-04-26] MEDS ORDERED: APIXABAN 5 MG TAB ONE ×2 (08:24→20:08)
[2024-04-26] MEDS ORDERED: carvediloL 6.25 MG TAB ONE ×2 (08:25→16:32)
[2024-04-26] MEDS ORDERED: predniSONE 20 MG TAB ONE (08:26)
[2024-04-26] MEDS ORDERED: cefTRIAXone 2 GM VIAL ONE (08:26)
[2024-04-26 11:31] LABS: Glucose,Whole Blood 245 mg/dL (70-110)
[2024-04-26 16:50] LABS: Glucose,Whole Blood 318 mg/dL (70-110)
[2024-04-26] MEDS ORDERED: traMADol 50 MG TAB ONE (20:07)
[2024-04-26] MEDS ORDERED: ATORVASTATIN 40 MG TAB ONE (20:08)
[2024-04-26] MEDS ORDERED: MONTELUKAST 10 MG TAB ONE (20:08)
[2024-04-26] MEDS ORDERED: QUEtiapine 50 MG TAB ONE (20:12)
[2024-04-27] MEDS ORDERED: SODIUM CHLORIDE 0.9% 50 ML BAG ONE (00:01)
[2024-04-27] MEDS ORDERED: SYMBICORT 80-4.5 MCG INHALER INHALATION ONE (00:01)
[2024-04-27] MEDS ORDERED: ALBUTEROL HFA INHALER INHALATION ONE (00:01)
[2024-04-27] MEDS ORDERED: BUMETANIDE 1 MG TAB ONE (09:07)
[2024-04-27] MEDS ORDERED: GABAPENTIN 400 MG CAP ONE (09:07)
[2024-04-27] MEDS ORDERED: SPIRONOLACTONE 25 MG TAB ONE (09:07)
[2024-04-27] MEDS ORDERED: PANTOPRAZOLE 40 MG TABLET PO ONE (09:07)
[2024-04-27] MEDS ORDERED: FINASTERIDE 5 MG TAB ONE (09:07)
[2024-04-27] MEDS ORDERED: APIXABAN 5 MG TAB ONE (09:08)
[2024-04-27] MEDS ORDERED: polyethylene glycoL 3350 17 GM POWD.PACK ONE (09:08)
[2024-04-27] MEDS ORDERED: predniSONE 20 MG TAB ONE (09:08)
[2024-04-27] MEDS ORDERED: ASPIRIN 81 MG ONE (09:08)
[2024-04-27] MEDS ORDERED: TAMSULOSIN 0.4 MG CAP.ER.24H PO ONE (09:08)
[2024-04-27] MEDS ORDERED: cefTRIAXone 2 GM VIAL ONE (09:09)
[2024-04-27] MEDS ORDERED: carvediloL 6.25 MG TAB ONE (09:09)
[2024-04-27] MEDS ORDERED: INSULIN ASPART (NovoLOG) 100 UNIT/ML VIAL SQ ONE (11:59)
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
--- NOTE | 2024-05-24 18:48 | CDI ---
Documentation Clarification Form Date: 05/24/2024 06:42:39 PM From: Daisy Tamayo Phone: Admit Date: 04/20/2024 05:28:00 PM Patient Name: Dennis Rubio Visit Number: [id number] Discharge Date: 04/27/2024 03:31:00 PM ATTENTION: The Clinical Documentation Specialists (CDI) and [facility] Coding Staff appreciate your assistance in clarifying documentation. Please respond to the clarification below the line at the bottom and electronically sign. The CDI & [facility] Coding staff will review the response and follow-up if needed. Please note: Queries are made part of the Legal Health Record. If you have any questions, please contact the author of this message via ITS. Doctor/Provider: Lakisha Beverly There is documentation of an ulcer of the Rt foot[due to IDDMII]. Additional specificity regarding the severity of the wound is requested. Patient history/risk factors: 68yo M, AHRF, AECOPD w COVID PNA, chronic A Fib, CAD, DMII with ulcers and hyperglycemia, HTN, HLD, Hx Hep c w chronic cirrhosis, OA, smoker Clinical Indicators: Patient was seen in the emergency department earlier this week and discharged home on clindamycin for lower extremitycellulitis. Wound assessment: Nonhealing ulcer Treatment: CellulitisBLE; chronic wounds -Has been placed on IV Rocephin; will consult ID for further recommendations Please clarify the severity of the wound: [ ] Limited to breakdown of skin [ ] With fat layer exposed [ ] Other, Please specify [ @@@ ] Unable to determine (Template Last Revised: November 2020) MTDD
--- NOTE | 2024-05-24 19:08 | CDI ---
Documentation Clarification Form Date: 05/24/2024 06:50:00 PM From: Daisy Tamayo Phone: Admit Date: 04/20/2024 05:28:00 PM Patient Name: Dennis Rubio Visit Number: [id number] Discharge Date: 04/27/2024 03:31:00 PM ATTENTION: The Clinical Documentation Specialists (CDI) and [facility] Coding Staff appreciate your assistance in clarifying documentation. Please respond to the clarification below the line at the bottom and electronically sign. The CDI & [facility] Coding staff will review the response and follow-up if needed. Please note: Queries are made part of the Legal Health Record. If you have any questions, please contact the author of this message via ITS. Dr. Lakisha Beverly Your patient has: ACHRF d/t acute exacerbation of COPD complicated by acute COVID-19 infection per Pulm Consult Note AHRF with acute exacerbation of COPD and acute COVID-19 infection per ED and Progress Notes Clarification on for the diagnosis clinically appropriate for this patient is requested. History/Risk Factors: 68yo M, AHRF, AECOPD w COVID PNA, chronic A Fib, CAD, DMII with ulcers and hyperglycemia, HTN, HLD, Hx Hep c w chronic cirrhosis, OA, Hx TBI Tobacco use: Yes Home oxygen: No Clinical Indicators: Vitals: 04/20/240811/2407 14:41 16:12 16:20 T 98.1 98.9 ME 96 80 PO 20 15 BP 105/67 94/75 117/70 [Rt Arm] O2 Sat 90 95 04/20/240811/2407 16:25 16:30 16:40 ME 144 82 PO 19 19 16 BP117/70 [Rt Arm] O2 Sat 90 91 04/20/2408/11/2407 16:50 17:00 17:10 ME 72 73 80 RR 15 15 16 BP 153/70 153/70 155/65 [Rt Arm] O2 Sat 95 98 90 Treatment: The patient was seen and evaluated. Imaging, labs and medications reviewed. Continue Symbicort, albuterol, Solu-Medrol. Titrate the FiO2 as tolerated. Continue ceftriaxone for now. Check a procalcitonin. Which diagnosis is clinically appropriate for this patient? [ ] Acute Hypoxic Respiratory Failure [ ] Acute on Chronic Respiratory Failure [ ] Other Diagnosis, please specify [ ] Unable to determine (Template Last Revised: September 2023) MTDD
--- NOTE | 2024-05-31 11:37 | CDI ---
Documentation Clarification Form Date: 05/31/2024 11:32:08 AM From: Daisy Tamayo Phone: Admit Date: 04/20/2024 05:28:00 PM Patient Name: Dennis Rubio Visit Number: [id number] Discharge Date: 04/27/2024 03:31:00 PM ATTENTION: The Clinical Documentation Specialists (CDI) and [facility] Coding Staff appreciate your assistance in clarifying documentation. Please respond to the clarification below the line at the bottom and electronically sign. The CDI & [facility] Coding staff will review the response and follow-up if needed. Please note: Queries are made part of the Legal Health Record. If you have any questions, please contact the author of this message via ITS. Dr. Lakisha Beverly Thank you for acknowledging the previous query; however, it lacked clarification. Your patient has documented: Acute on Chronic HRF d/tAECOPDcomplicated by acuteCOVID-19 infection per Pulm Consult Note Acute HRFwithAECOPDand acuteCOVID-19 infectionper ED and Progress Notes Clarification on for the diagnosis clinically appropriate for this patient is requested. History/Risk Factors: 68yo M,AHRF,AECOPDwCOVIDPNA,chronic A Fib,CAD,DMII withulcersandhyperglycemia,HTN,HLD, HxHep cw chroniccirrhosis,OA, Hx TBI Tobacco use: Yes Home oxygen: No Clinical Indicators: Vitals: 04/20/2408/11/2407 14:41 16:12 16:20 T 98.1 98.9 [place] 96 80 PO 20 15 BP 105/67 94/75 117/70 [Rt Arm] O2 Sat 90 95 04/20/2408/11/2407 16:25 16:30 16:40 W[place] 144 82 PO 19 19 16 BP117/70 [Rt Arm] O2 Sat 90 91 04/20/2408/11/2407 16:50 17:00 17:10 W[place] 72 73 80 RR 15 15 16 BP 153/70 153/70 155/65 [Rt Arm] O2 Sat 95 98 90 Treatment: The patient was seen and evaluated. Imaging, labs and medications reviewed. Continue Symbicort, albuterol, Solu-Medrol. Titrate the FiO2 as tolerated. Continue ceftriaxone for now. Check a procalcitonin. Which diagnosis is clinically appropriate for this patient? [ ]Acute Hypoxic Respiratory Failure [ @@@]Acute on Chronic Respiratory Failure [ ] Other Diagnosis, please specify [ ] Unable to determine (Template LastRevised: September 2023) MTDD
== END 2024-04-27 15:31 | disposition home or self-care (01) | DRG 177 ==
LOC: EC 13:46 → 3SCARD 17:28 → 4SSUR 04-21 11:06 → 3SCARD 04-22 00:39
PROVIDERS: ADMIT Hospitalist; ATTEND Hospitalist
DX: U07.1 COVID-19 (principal); G92.8 Other toxic encephalopathy; J12.82 Pneumonia due to coronavirus disease 2019; J96.21 Acute and chronic respiratory failure with hypoxia; I48.20 Chronic atrial fibrillation, unspecified; L97.922 Non-pressure chronic ulcer of unspecified part of left lower leg with fat layer exposed; J44.1 Chronic obstructive pulmonary disease with (acute) exacerbation; J44.0 Chronic obstructive pulmonary disease with (acute) lower respiratory infection; L03.115 Cellulitis of right lower limb; L03.116 Cellulitis of left lower limb; E11.42 Type 2 diabetes mellitus with diabetic polyneuropathy; K74.69 Other cirrhosis of liver; E11.622 Type 2 diabetes mellitus with other skin ulcer; E11.65 Type 2 diabetes mellitus with hyperglycemia; Z79.4 Long term (current) use of insulin; E11.621 Type 2 diabetes mellitus with foot ulcer; L97.519 Non-pressure chronic ulcer of other part of right foot with unspecified severity; I10 Essential (primary) hypertension; K59.00 Constipation, unspecified; I25.10 Atherosclerotic heart disease of native coronary artery without angina pectoris; H91.90 Unspecified hearing loss, unspecified ear; E78.5 Hyperlipidemia, unspecified; R41.3 Other amnesia; E83.42 Hypomagnesemia; E87.6 Hypokalemia; N40.0 Benign prostatic hyperplasia without lower urinary tract symptoms; T38.0X5A Adverse effect of glucocorticoids and synthetic analogues, initial encounter; M19.90 Unspecified osteoarthritis, unspecified site; F17.210 Nicotine dependence, cigarettes, uncomplicated; Z79.01 Long term (current) use of anticoagulants; Z79.82 Long term (current) use of aspirin; Z79.84 Long term (current) use of oral hypoglycemic drugs; Z95.5 Presence of coronary angioplasty implant and graft; Z87.820 Personal history of traumatic brain injury; Z87.19 Personal history of other diseases of the digestive system; Z86.14 Personal history of Methicillin resistant Staphylococcus aureus infection; Z79.899 Other long term (current) drug therapy; Z86.19 Personal history of other infectious and parasitic diseases
CPT/HCPCS: 36415; 71046; 71275; 80048; 80053; 83605; 83735; 83880; 84145; 84484; 85025; 85379; 85610; 85730; 87040; 87070; 87077; 87186; 87205; 87449; 87636; 93005; 94640; 94760; 96365; 96366; 96368; 96375; 99291

== ENCOUNTER 2024-06-14 10:57 | Emergency (ER) | payer MEDICARE ==
[2024-06-14 12:45] LABS: VBG PH 7.38 (7.31-7.41)
[2024-06-14 12:47] LABS: Basophils % (A) 1 %; Eosinophils # (A) 0.1 k/uL (0-0.7); Eosinophils % (A) 2 %; HCT 42.1 % (39.0-53.0); HGB 14.3 gm/dL (13.0-17.5); Lymphocytes # (A) 1.5 k/uL (1.0-4.8); Lymphocytes % (A) 24 %; MCH 32.6 pg (25.0-35.0); MCHC 33.9 g/dL (31.0-37.0); Mean Platelet Volume 8.4; Monocytes # (A) 0.5 k/uL (0-1.0); Monocytes % (A) 8 %; Neutrophils % (A) 63 %; Platelet Count 158 k/uL (150-450); RBC 4.38 m/uL (4.30-5.90); RDW 15.6 % (11.5-15.5); WBC 6.4 k/uL (3.8-10.6)
[2024-06-14 12:49] LABS: Partial Thromboplastin Time 25.1 sec (22.0-30.0); Prothrombin Time 11.2 sec (10.0-12.5)
[2024-06-14] MEDS: SODIUM CHLORIDE 0.9% 500 ML 500 ML IV STA (12:50)
[2024-06-14 12:51] LABS: ALT 19 U/L (4-49); AST 25 U/L (17-59); African American GFR (CKD) >90 (>60 ml/min/1.73 sqM); Albumin 4.1 g/dL (3.5-5.0); Alkaline Phosphatase 147 U/L (38-126); Anion Gap 6 mmol/L; Blood Urea Nitrogen 14 mg/dL (9-20); Calcium 9.1 mg/dL (8.4-10.2); Carbon Dioxide 28 mmol/L (22-30); Chloride 97 mmol/L (98-107); Glucose 434 mg/dL (74-99); Magnesium 1.8 mg/dL (1.6-2.3); Non-African American GFR(CKD) >90 (>60 ml/min/1.73 sqM); Potassium 4.2 mmol/L (3.5-5.1); Sodium 131 mmol/L (137-145); Total Bilirubin 1.4 mg/dL (0.2-1.3); Total Protein 7.1 g/dL (6.3-8.2)
[2024-06-14 12:57] LABS: MCV 96.2 fL (80.0-100.0)
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
[2024-06-14] MEDS: INSULIN REGULAR 100 UNIT/ML VIAL (IV) IV ONE ×2 (14:30→15:40)
[2024-06-14 16:24] VITALS: BP 115/72; PULSE 80; RESP 16; TEMP 98.2
[2024-06-21 15:07] LABS: Glucose,Whole Blood 335 mg/dL (70-110)
[2024-06-21 15:07] LABS: Glucose,Whole Blood 234 mg/dL (70-110)
[2024-06-21 15:07] LABS: Glucose,Whole Blood 369 mg/dL (70-110)
== END 2024-06-14 16:24 | disposition home or self-care (01) ==
LOC: EC 10:57
CPT/HCPCS: 36415; 80053; 82803; 83605; 83735; 84484; 85025; 85610; 85730; 93005; 99285

== ENCOUNTER 2024-06-21 20:11 | Emergency (ER) | payer MEDICARE ==
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
[2024-06-21 20:29] LABS: Glucose,Whole Blood 401 mg/dL (70-110)
[2024-06-21] MEDS: SODIUM CHLORIDE 0.9% 1,000 ML IV STA (20:36)
[2024-06-21] MEDS: METOCLOPRAMIDE 5 MG/ML 2 ML VIAL IVP STA (20:39)
[2024-06-21 20:41] LABS: Basophils # (A) 0.1 k/uL (0-0.2); Basophils % (A) 1 %; Eosinophils # (A) 0.1 k/uL (0-0.7); Eosinophils % (A) 2 %; HCT 42.8 % (39.0-53.0); Lymphocytes # (A) 1.7 k/uL (1.0-4.8); Lymphocytes % (A) 26 %; MCH 31.8 pg (25.0-35.0); MCHC 32.8 g/dL (31.0-37.0); MCV 96.8 fL (80.0-100.0); Mean Platelet Volume 8.2; Monocytes # (A) 0.5 k/uL (0-1.0); Monocytes % (A) 8 %; Neutrophils # (A) 3.8 k/uL (1.3-7.7); Neutrophils % (A) 60 %; Platelet Count 169 k/uL (150-450); RBC 4.42 m/uL (4.30-5.90); RDW 14.4 % (11.5-15.5); WBC 6.4 k/uL (3.8-10.6)
[2024-06-21] MEDS: PANTOPRAZOLE 40 MG/10 ML VIAL IVP STA (20:42)
[2024-06-21 20:43] LABS: VBG PH 7.39 (7.31-7.41)
[2024-06-21 20:55] LABS: ALT 18 U/L (4-49); AST 21 U/L (17-59); African American GFR (CKD) >90 (>60 ml/min/1.73 sqM); Albumin 3.8 g/dL (3.5-5.0); Alkaline Phosphatase 126 U/L (38-126); Anion Gap 9 mmol/L; Blood Urea Nitrogen 15 mg/dL (9-20); Carbon Dioxide 25 mmol/L (22-30); Chloride 98 mmol/L (98-107); Glucose 382 mg/dL (74-99); Magnesium 1.9 mg/dL (1.6-2.3); Non-African American GFR(CKD) >90 (>60 ml/min/1.73 sqM); Phosphorus 3.4 mg/dL (2.5-4.5); Potassium 4.3 mmol/L (3.5-5.1); Sodium 132 mmol/L (137-145); Total Bilirubin 1.2 mg/dL (0.2-1.3); Total Protein 6.9 g/dL (6.3-8.2)
[2024-06-21 21:08] LABS: Partial Thromboplastin Time 22.4 sec (22.0-30.0); Prothrombin Time 10.7 sec (10.0-12.5)
[2024-06-21] MEDS: IPRATROPIUM-ALBUTEROL 3 ML NEB INHALATION STA (21:10)
--- NOTE | 2024-06-21 21:17 | XR ---
EXAMINATION TYPE: XR chest 2V DATE OF EXAM: 06/21/2024 COMPARISON: 04/21/2024 INDICATION: Weakness TECHNIQUE: Frontal and lateral views of the chest are obtained. FINDINGS: The heart size is normal. The pulmonary vasculature is normal. The lungs are clear. IMPRESSION: 1. No acute pulmonary process. [facility], Workstation: [facility], 06/21/2024 9:14 PM
--- NOTE | 2024-06-21 21:18 | XR ---
EXAMINATION TYPE: XR KUB DATE OF EXAM: 06/21/2024 COMPARISON: None INDICATION: Constipation TECHNIQUE: Single view abdomen supine view FINDINGS: Significant fecal debris is not identified. Small amount is present within the colon. No suspicious a ir-filled small bowel loops. Psoas margins are normal. No organomegaly is present. IMPRESSION: 1. Unremarkable Abdomen [facility], Workstation: [facility], 06/21/2024 9:15 PM
[2024-06-21] MEDS: INSULIN REGULAR 100 UNIT/ML VIAL (IV) IV ONE (21:40)
[2024-06-21] MEDS: ONDANSETRON 4 MG/2 ML VIAL IVP STA (22:46)
[2024-06-21] MEDS: ONDANSETRON 4 MG ODT STARTER PACK 2 TAB BTL PO STA (22:50)
[2024-06-21 22:58] VITALS: BP 132/85; PULSE 99; RESP 17; TEMP 97.9
== END 2024-06-21 23:02 | disposition home or self-care (01) ==
LOC: EC 20:11
CPT/HCPCS: 36415; 71046; 74018; 80053; 82009; 82803; 83605; 83735; 84100; 84484; 85025; 85610; 85730; 93005; 94640; 96361; 96374; 96375; 99284; 99406

== ENCOUNTER → 2024-09-26 | Outpatient (CLI) | payer MEDICARE ==
[2024-09-26 15:23] LABS: African American GFR (CKD) >90 (>60 ml/min/1.73 sqM); Blood Urea Nitrogen 23 mg/dL (9-20); Non-African American GFR(CKD) 84 (>60 ml/min/1.73 sqM)
--- NOTE | 2024-09-26 16:38 | CT ---
CT urogram. HISTORY: Hematuria x2 weeks COMPARISON: CT abdomen and pelvis dated 11/17/2023. TECHNIQUE: Multiple axial images obtained through the abdomen and pelvis before and after the unevent ful administration of nonionic IV contrast. Delayed postcontrast images were also obtained. FINDINGS: Lung bases are clear. On the pre-IV contrast images, there is a 5 to 6 mm nonobstructing right renal calculus. There is a s table cholelithiasis. There are no focal masses within the liver, pancreas, spleen or adrenal glands and there is no organo megaly. The liver contour is markedly lobulated consistent with cirrhosis. Kidneys excrete contrast promptly and symmetrically and there is no solid renal mass, hydronephrosis or filling defect within the renal collecting systems, or ureters. There is a 9 mm filling defect in bladder which could represent mass/neoplasm and further evaluation is warranted. The bowel loops are normal in caliber and there is no dilatation or obstruction. No inflammatory martin ges are identified in the bowel wall or mesentery. There is no free intraperitoneal air or fluid. There is no pelvic mass, free fluid, abscess or adenopathy. The osseous structures are intact. IMPRESSION: 1. 9 mm filling defect in the inferior urinary bladder which could represent a pedunculated mass/neop lasm and further evaluation is warranted. 2. 5-6 mm nonobstructing right renal calculus. 3. Cirrhotic liver. 4. Cholelithiasis. [facility], , 09/26/2024 4:35 PM
== END | disposition home or self-care (01) ==
LOC: RADCTMAIN 14:13
PROVIDERS: ATTEND Family Medicine
DX: N20.0 Calculus of kidney (principal); K80.20 Calculus of gallbladder without cholecystitis without obstruction; K74.60 Unspecified cirrhosis of liver; R31.9 Hematuria, unspecified
CPT/HCPCS: 82565; 84520; 74178; 36415; 74400; Q9967

== ENCOUNTER 2024-10-03 15:55 | Emergency (ER) | payer MEDICARE ==
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
[2024-10-03 17:48] LABS: RBC,Urine >182 /hpf (0-5); WBC,Urine 59 /hpf (0-5)
[2024-10-03 18:02] LABS: Appearance,Urine Bloody (Clear); Color,Urine Dark Brown
[2024-10-03] MEDS: CEPHALEXIN 500MG STARTER PACK 4 CAP BTL PO STA (18:23)
[2024-10-03 18:27] VITALS: BP 111/54; PULSE 74; RESP 18; TEMP 98.5
== END 2024-10-03 18:27 | disposition home or self-care (01) ==
LOC: EC 15:55
DX: R31.9 Hematuria, unspecified (principal); F17.290 Nicotine dependence, other tobacco product, uncomplicated
CPT/HCPCS: 51798; 81001; 87086; 99283